=== PATIENT | male | born 1955 | race Caucasian/White ===

== ENCOUNTER 2017-07-05 16:25 | Inpatient (IN) | payer OTHER, MEDICAID ==
[2017-07-05 17:04] LABS: ADD MAN DIFF? NO
[2017-07-05 17:05] LABS: AADO2 Arterial 201.1 mmHg (7.0-24.0); Allen Test ACCEPTAB; Arterial Base Excess 0.5 mmol/L (-3.0-3); Arterial Blood Gas Oxygen Sat 97.9 mmHG (95.0-98.0); Arterial COHb 0.3 % (0.0-3.0); Arterial Fraction of Oxyhgb 97.1 % (93.0-99.0); Arterial MetHb 0.5 % (0.0-1.5); Arterial Total Hemglobin 8.5 g/dl (12.0-18.0); Arterial pCO2 33.8 mmhg (35-45); MODE VENT - AC; Site Right Radial
[2017-07-05 17:07] LABS: WHITE BLOOD COUNT 7.9 10^3/ul (4.8-10.8)
[2017-07-05 17:07] LABS: ABNORMAL IP MESSAGE 1; BASOPHILS % 0.4 % (0.0-2.0); EOSINOPHILS # 0.2 10^3/ul (0.0-0.5); EOSINOPHILS % 2.3 % (0.0-7.0); HEMATOCRIT 27.2 % (42.0-52.0); HEMOGLOBIN 7.8 g/dl (14.0-18.0); LYMPHOCYTES # 1.4 10^3/ul (0.8-2.9); LYMPHOCYTES % 17.8 % (15.0-51.0); MEAN CORPUSCULAR HEMOGLOBIN 24.1 pg (29.0-33.0); MEAN CORPUSCULAR HGB CONC 28.7 g/dl (32.0-37.0); MEAN CORPUSCULAR VOLUME 84.2 fl (82.0-101.0); MEAN PLATELET VOLUME 10.9 fl (7.4-10.4); MONOCYTE # 0.3 10^3/ul (0.3-0.9); MONOCYTES % 4.2 % (0.0-11.0); NEUTROPHIL # 5.9 10^3/ul (1.6-7.5); NEUTROPHILS % 74.5 % (39.0-77.0); PLATELET COUNT 189 10^3/UL (140-415); POSITIVE DIFF @See below; RED BLOOD COUNT 3.23 10^6/ul (4.70-6.10); RED CELL DISTRIBUTION WIDTH 26.5 % (11.5-14.5)
[2017-07-05 17:23] LABS: INR 1.15; PROTIME 14.9 Sec (11.9-14.9); PT RATIO 1.2
[2017-07-05 17:25] LABS: LACTIC ACID 0.8 mmol/L (0.5-2.0)
[2017-07-05 17:26] LABS: ALANINE AMINOTRANSFERASE 50 IU/L (13-69); ALBUMIN 2.9 g/dl (3.3-4.9); ALBUMIN/GLOBULIN RATIO 0.87; ALKALINE PHOSPHATASE 49 IU/L (42-121); ANION GAP 12 (8-16); ASPARTATE AMINO TRANSFERASE 45 IU/L (15-46); BILIRUBIN,INDIRECT 0.3 mg/dl (0-1.1); BILIRUBIN,TOTAL 0.3 mg/dl (0.2-1.3); BLOOD UREA NITROGEN 18 mg/dl (7-20); CALCIUM 8.3 mg/dl (8.4-10.2); CARBON DIOXIDE 27 mmol/L (21-31); CHLORIDE 122 mmol/L (97-110); CREATININE 0.74 mg/dl (0.61-1.24); GLUCOSE 101 mg/dl (70-220); POTASSIUM 3.5 mmol/L (3.5-5.1); SODIUM 157 mmol/L (135-144); TOTAL PROTEIN 6.2 g/dl (6.1-8.1)
[2017-07-05] MEDS: LIDOCAINE 1% (MPF) 5 ML VIAL SC (17:30)
[2017-07-05 17:38] LABS: TROPONIN-I < 0.012 ng/ml (0.00-0.12)
[2017-07-05] MEDS: SOD CHLORIDE 0.9% 100 ML (17:40)
[2017-07-05] MEDS: CEFEPIME 2GM/50 ML (PMX) 50 ML IVPB (18:58)
[2017-07-05] MEDS: ACETAMINOPHEN 650 MG SUPP PR (18:58)
[2017-07-05] MEDS: SODIUM CHLORIDE 0.9% 1L BAG IV* (18:59)
[2017-07-05] MEDS ORDERED: ONDANSETRON 4 MG INJ IV (19:00)
[2017-07-05 19:01] LABS: LACTIC ACID 0.9 mmol/L (0.5-2.0)
[2017-07-05] MEDS: CIPROFLOXACIN 400MG/D5W 200 ML IVPB (19:19)
[2017-07-05 19:42] LABS: ADD UMIC YES; UR ASCORBIC ACID 40 mg/dL (NEGATIVE); UR BILIRUBIN (Dip) NEGATIVE (NEGATIVE); UR BLOOD (Dip) NEGATIVE (NEGATIVE); UR CLARITY SLIGHTLY CLOUDY (CLEAR); UR COLOR YELLOW (YELLOW); UR GLUCOSE (Dip) NEGATIVE (NEGATIVE); UR KETONES (Dip) NEGATIVE (NEGATIVE); UR LEUKOCYTE ESTERASE (Dip) NEGATIVE Leu/ul (NEGATIVE); UR NITRITE (Dip) NEGATIVE (NEGATIVE); UR RBC 5 /HPF (0-5); UR SPECIFIC GRAVITY (Dip) 1.015 (1.003-1.030); UR TOTAL PROTEIN (Dip) 2+ mg/dl (NEGATIVE); UR UROBILINOGEN (Dip) NEGATIVE (NEGATIVE); UR WBC 3 /HPF (0-5)
[2017-07-05 19:56] LABS: ANISOCYTOSIS 3+ (0-0); BASOPHILS % (M) 1 % (0-2); EOSINOPHILS % (M) 2 % (0-7); GIANT THROMBO% (M) 1 % (0-0); LYMPHOCYTES #M 0.9 10^3/ul (0.8-2.9); LYMPHOCYTES % (M) 12 % (15-51); MICROCYTOSIS 3+ (0-0); MONOCYTE #M 0.5 10^3/ul (0.3-0.9); MONOCYTES % (M) 7 % (0-11); POIKILOCYTOSIS 1+ (0-0); REACTIVE LYMPHOCYTES #M 0.5 10^3/ul (0.0-0.0); REACTIVE LYMPHOCYTES% (M) 7 % (0-0); SEGMENTED NEUTROPHILS (M) % 72 % (39-77); SMUDGE%M 9 % (0-0)
[2017-07-05] MEDS: VANCOMYCIN 1 GM (PMX) 250 ML IVPB (20:32)
[2017-07-05 21:51] LABS: LACTIC ACID 0.9 mmol/L (0.5-2.0)
[2017-07-05] MEDS: AMIKACIN 500 MG in DEXTROSE 5% 100 ML IVPB (23:03)
[2017-07-05] MEDS: BISACODYL 10 MG SUPP PR (23:30)
[2017-07-05] MEDS ORDERED: AMIKACIN (5 MG/ML) IV SYG IV* (23:30)
[2017-07-05] MEDS: D5W + KCL 20 MEQ 1,000 ML IV (23:30)
[2017-07-05] MEDS ORDERED: AMIKACIN IV PER PHARMACY XX (23:45)
[2017-07-06] MEDS: AMIKACIN 1,000 MG in DEXTROSE 5% 100 ML IVPB (00:36)
[2017-07-06] MEDS: HYDROCODONE/APAP (5/325) TAB GTB ×3 (00:58→22:43)
[2017-07-06] MEDS: MAGNESIUM HYDROXIDE 30ML CUP GTB (00:58)
[2017-07-06] MEDS: ALBUTEROL/IPRATROPIUM (NEB) 3 ML AMP HHN ×3 (01:10→18:40)
[2017-07-06] MEDS: ACETAMINOPHEN 325 MG TAB PO (04:52)
[2017-07-06 06:33] LABS: ADD MAN DIFF? NO
[2017-07-06 06:44] LABS: ABNORMAL IP MESSAGE 1; BASOPHILS % 0.5 % (0.0-2.0); EOSINOPHILS # 0.2 10^3/ul (0.0-0.5); HEMATOCRIT 23.9 % (42.0-52.0); LYMPHOCYTES # 1.3 10^3/ul (0.8-2.9); LYMPHOCYTES % 18.8 % (15.0-51.0); MEAN CORPUSCULAR HEMOGLOBIN 24.5 pg (29.0-33.0); MEAN CORPUSCULAR HGB CONC 29.3 g/dl (32.0-37.0); MEAN CORPUSCULAR VOLUME 83.6 fl (82.0-101.0); MEAN PLATELET VOLUME 11.7 fl (7.4-10.4); MONOCYTE # 0.3 10^3/ul (0.3-0.9); NEUTROPHIL # 4.8 10^3/ul (1.6-7.5); NEUTROPHILS % 72.1 % (39.0-77.0); PLATELET COUNT 165 10^3/UL (140-415); POSITIVE DIFF @See below; RED BLOOD COUNT 2.86 10^6/ul (4.70-6.10); RED CELL DISTRIBUTION WIDTH 26.5 % (11.5-14.5)
[2017-07-06 06:44] LABS: WHITE BLOOD COUNT 6.6 10^3/ul (4.8-10.8)
[2017-07-06 07:07] LABS: ANION GAP 14 (8-16); BLOOD UREA NITROGEN 15 mg/dl (7-20); CALCIUM 8.2 mg/dl (8.4-10.2); CARBON DIOXIDE 25 mmol/L (21-31); CHLORIDE 121 mmol/L (97-110); CREATININE 0.65 mg/dl (0.61-1.24); GLUCOSE 95 mg/dl (70-220); POTASSIUM 3.3 mmol/L (3.5-5.1); SODIUM 157 mmol/L (135-144)
[2017-07-06 07:09] LABS: CHOL/HDL RATIO 4.5 RATIO; HDL CHOLESTEROL 16 mg/dl (30-78); LDL CHOLESTEROL,CALCULATED 36 mg/dl; TRIGLYCERIDES 101 mg/dl (0-149)
[2017-07-06 07:09] LABS: CHOLESTEROL 72 mg/dl (100-200)
[2017-07-06 07:20] LABS: FREE T4 (FREE THYROXINE) 0.97 ng/dl (0.78-2.44)
[2017-07-06] MEDS: ASPIRIN 81 MG TAB PO (08:36)
[2017-07-06] MEDS: CHLORHEXIDINE GLUCONATE 15 ML UD CUP MM ×2 (08:36→22:35)
[2017-07-06] MEDS: ESCITALOPRAM 10 MG TAB GTB (08:36)
[2017-07-06] MEDS: METOPROLOL 25 MG TAB GTB ×2 (08:37→22:35)
[2017-07-06] MEDS: ENOXAPARIN 30 MG/0.3 ML SYG SC (08:37)
[2017-07-06] MEDS: FAMOTIDINE 20 MG TAB GTB ×2 (08:37→22:34)
[2017-07-06] MEDS: CEFEPIME 1GM/50 ML (PMX) 50 ML IVPB ×2 (08:37→22:33)
[2017-07-06] MEDS: MULTIVITAMINS 30 ML CUP GTB (08:38)
[2017-07-06] MEDS: ONDANSETRON 4 MG TAB GTB ×4 (08:39→22:37)
[2017-07-06] MEDS: FERROUS SULFATE 60 MG/ML 5ML CUP GTB ×2 (09:00→22:34)
[2017-07-06] MEDS ORDERED: ASPIRIN (EC) 81 MG TAB PO (09:00)
[2017-07-06] MEDS: DOCUSATE SODIUM 10 MG/ML (10ML CUP) GTB ×2 (09:00→22:26)
[2017-07-06] MEDS ORDERED: ACETAMINOPHEN 650MG/20.3ML CUP (12:34)
[2017-07-06] MEDS: ACETAMINOPHEN 325 MG TAB GTB (12:38)
[2017-07-06 13:58] LABS: IMMEDIATE SPIN CROSSMATCH 1 1
[2017-07-06] MEDS ORDERED: ALTEPLASE (CATHFLO) 2 MG INJ CATHETER (14:30)
[2017-07-06] MEDS: ALTEPLASE (CATHFLO) 2 MG INJ CATHETER (17:00)
[2017-07-06] MEDS: D5W + KCL 20 MEQ 1,000 ML IV (18:03)
[2017-07-06 20:47] LABS: RETICULOCYTE RBC 3.15
[2017-07-06 20:47] LABS: RETICULOCYTE COUNT # 0.009 X10^6 (0.020-0.110); RETICULOCYTE COUNT % 0.3 % (0.5-1.5)
[2017-07-06 22:15] LABS: FOLATE > 20.0 ng/ml (2.8-20.0)
[2017-07-06] MEDS: SOD CHLORIDE 0.9% 250 ML IV* (22:27)
[2017-07-06] MEDS: SENNA TAB GTB (22:34)
[2017-07-07] MEDS: IPRATROPIUM (HFA) 12.9 GM INHALER INH ×4 (02:00→20:00)
[2017-07-07] MEDS: ALBUTEROL HFA 8 GM INHALER INH ×5 (02:00→20:27)
[2017-07-07] MEDS: D5W + KCL 20 MEQ 1,000 ML IV ×2 (02:10→15:30)
[2017-07-07] MEDS: DAPTOMYCIN 320 MG in SOD CHLORIDE 0.9% 100 ML IVPB ×2 (03:19→22:30)
[2017-07-07] MEDS: BISACODYL 10 MG SUPP PR (03:20)
[2017-07-07] MEDS: MAGNESIUM HYDROXIDE 30ML CUP GTB (03:20)
[2017-07-07] MEDS: PANTOPRAZOLE 40 MG INJ IV (05:53)
[2017-07-07] MEDS: ONDANSETRON 4 MG TAB GTB ×3 (05:53→22:00)
[2017-07-07] MEDS: HYDROCODONE/APAP (5/325) TAB GTB (05:59)
[2017-07-07 08:32] LABS: ADD MAN DIFF? NO
[2017-07-07 08:34] LABS: ABNORMAL IP MESSAGE 1; BASOPHILS % 0.5 % (0.0-2.0); EOSINOPHILS # 0.2 10^3/ul (0.0-0.5); EOSINOPHILS % 2.9 % (0.0-7.0); HEMATOCRIT 25.8 % (42.0-52.0); LYMPHOCYTES % 15.9 % (15.0-51.0); MEAN CORPUSCULAR HEMOGLOBIN 25.2 pg (29.0-33.0); MEAN CORPUSCULAR VOLUME 81.1 fl (82.0-101.0); MONOCYTE # 0.4 10^3/ul (0.3-0.9); NEUTROPHIL # 4.6 10^3/ul (1.6-7.5); NEUTROPHILS % 74.2 % (39.0-77.0); PLATELET COUNT 160 10^3/UL (140-415); POSITIVE DIFF @See below; RED BLOOD COUNT 3.18 10^6/ul (4.70-6.10); RED CELL DISTRIBUTION WIDTH 23.9 % (11.5-14.5)
[2017-07-07 08:34] LABS: WHITE BLOOD COUNT 6.2 10^3/ul (4.8-10.8)
[2017-07-07 09:03] LABS: ANION GAP 12 (8-16); BLOOD UREA NITROGEN 11 mg/dl (7-20); CARBON DIOXIDE 26 mmol/L (21-31); CHLORIDE 112 mmol/L (97-110); CREATININE 0.63 mg/dl (0.61-1.24); GLUCOSE 117 mg/dl (70-220); POTASSIUM 3.5 mmol/L (3.5-5.1); SODIUM 146 mmol/L (135-144)
[2017-07-07 09:16] LABS: AADO2 Arterial 94.6 mmHg (7.0-24.0); Allen Test ACCEPTAB; Arterial Base Excess 1.5 mmol/L (-3.0-3); Arterial Blood Gas Oxygen Sat 96.1 mmHG (95.0-98.0); Arterial COHb 0.5 % (0.0-3.0); Arterial Fraction of Oxyhgb 95.3 % (93.0-99.0); Arterial HCO3 23.9 mmol/L (22.0-26.0); Arterial MetHb 0.3 % (0.0-1.5); Arterial Total Hemglobin 8.9 g/dl (12.0-18.0); Arterial pCO2 29.4 mmhg (35-45); MODE VENT - AC; Site Left Radial
[2017-07-07] MEDS: ACETAMINOPHEN 325 MG TAB GTB (09:32)
[2017-07-07] MEDS: CHLORHEXIDINE GLUCONATE 15 ML UD CUP MM ×2 (09:32→21:53)
[2017-07-07] MEDS: DOCUSATE SODIUM 10 MG/ML (10ML CUP) GTB ×2 (09:33→21:52)
[2017-07-07] MEDS: FAMOTIDINE 20 MG TAB GTB ×2 (09:33→21:53)
[2017-07-07] MEDS: MULTIVITAMINS 30 ML CUP GTB (09:33)
[2017-07-07] MEDS: ESCITALOPRAM 10 MG TAB GTB (09:33)
[2017-07-07] MEDS: METOPROLOL 25 MG TAB GTB ×2 (09:34→21:00)
[2017-07-07] MEDS: FERROUS SULFATE 60 MG/ML 5ML CUP GTB ×2 (09:38→21:53)
[2017-07-07] MEDS: CEFEPIME 1GM/50 ML (PMX) 50 ML IVPB ×2 (09:38→21:52)
[2017-07-07 12:01] LABS: OCCULT BLOOD STOOL NEGATIVE (NEGATIVE)
[2017-07-07] MEDS: POTASSIUM CHLORIDE 100 ML IVPB (14:21)
[2017-07-07] MEDS: AMIKACIN 500 MG in DEXTROSE 5% 100 ML IVPB (17:15)
[2017-07-07] MEDS: SENNA TAB GTB (21:53)
[2017-07-08] MEDS: BISACODYL 10 MG SUPP PR ×2 (00:07→23:30)
[2017-07-08] MEDS: MAGNESIUM HYDROXIDE 30ML CUP GTB ×2 (00:07→23:30)
[2017-07-08] MEDS: IPRATROPIUM (HFA) 12.9 GM INHALER INH ×2 (02:00→19:29)
[2017-07-08] MEDS: ALBUTEROL HFA 8 GM INHALER INH ×4 (02:12→19:27)
[2017-07-08] MEDS: ONDANSETRON 4 MG TAB GTB ×3 (05:24→21:21)
[2017-07-08] MEDS: D5W + KCL 20 MEQ 1,000 ML IV ×2 (05:24→16:07)
[2017-07-08] MEDS: AMIKACIN 500 MG in DEXTROSE 5% 100 ML IVPB ×2 (05:24→16:08)
[2017-07-08] MEDS: PANTOPRAZOLE 40 MG INJ IV (05:24)
[2017-07-08 08:36] LABS: ADD MAN DIFF? NO
[2017-07-08 08:41] LABS: ABNORMAL IP MESSAGE 1; BASOPHILS % 0.3 % (0.0-2.0); EOSINOPHILS # 0.2 10^3/ul (0.0-0.5); EOSINOPHILS % 3.4 % (0.0-7.0); HEMATOCRIT 27.6 % (42.0-52.0); HEMOGLOBIN 8.4 g/dl (14.0-18.0); LYMPHOCYTES # 0.6 10^3/ul (0.8-2.9); LYMPHOCYTES % 9.7 % (15.0-51.0); MEAN CORPUSCULAR HEMOGLOBIN 25.3 pg (29.0-33.0); MEAN CORPUSCULAR HGB CONC 30.4 g/dl (32.0-37.0); MEAN CORPUSCULAR VOLUME 83.1 fl (82.0-101.0); MEAN PLATELET VOLUME 11.4 fl (7.4-10.4); MONOCYTE # 0.3 10^3/ul (0.3-0.9); MONOCYTES % 5.6 % (0.0-11.0); NEUTROPHIL # 4.9 10^3/ul (1.6-7.5); NEUTROPHILS % 80.5 % (39.0-77.0); PLATELET COUNT 184 10^3/UL (140-415); POSITIVE DIFF @See below; RED BLOOD COUNT 3.32 10^6/ul (4.70-6.10)
[2017-07-08 08:41] LABS: WHITE BLOOD COUNT 6.1 10^3/ul (4.8-10.8)
[2017-07-08] MEDS: ESCITALOPRAM 10 MG TAB GTB (08:45)
[2017-07-08] MEDS: MULTIVITAMINS 30 ML CUP GTB (08:45)
[2017-07-08] MEDS: FAMOTIDINE 20 MG TAB GTB ×2 (08:45→21:21)
[2017-07-08] MEDS: CHLORHEXIDINE GLUCONATE 15 ML UD CUP MM ×2 (08:45→21:21)
[2017-07-08] MEDS: FERROUS SULFATE 60 MG/ML 5ML CUP GTB ×2 (08:45→21:21)
[2017-07-08] MEDS: HYDROCODONE/APAP (5/325) TAB GTB (08:46)
[2017-07-08] MEDS: CEFEPIME 1GM/50 ML (PMX) 50 ML IVPB (08:47)
[2017-07-08] MEDS: METOPROLOL 25 MG TAB GTB ×3 (08:47→21:22)
[2017-07-08] MEDS: DOCUSATE SODIUM 10 MG/ML (10ML CUP) GTB ×2 (08:47→21:20)
[2017-07-08 09:06] LABS: ANION GAP 12 (8-16); BLOOD UREA NITROGEN 11 mg/dl (7-20); CALCIUM 8.6 mg/dl (8.4-10.2); CARBON DIOXIDE 27 mmol/L (21-31); CHLORIDE 116 mmol/L (97-110); CREATININE 0.57 mg/dl (0.61-1.24); GLUCOSE 112 mg/dl (70-220); POTASSIUM 3.9 mmol/L (3.5-5.1); SODIUM 151 mmol/L (135-144)
[2017-07-08 09:12] LABS: CREATINE KINASE 107 IU/L (23-200)
[2017-07-08] MEDS: SENNA TAB GTB (21:21)
[2017-07-09] MEDS: CEFEPIME 1GM/50 ML (PMX) 50 ML IVPB ×3 (00:06→21:48)
[2017-07-09] MEDS: DAPTOMYCIN 320 MG in SOD CHLORIDE 0.9% 100 ML IVPB ×2 (00:12→22:02)
[2017-07-09] MEDS: ALBUTEROL/IPRATROPIUM (NEB) 3 ML AMP HHN ×4 (01:18→19:31)
[2017-07-09] MEDS: *AMIKACIN TROUGH & PEAK XX (03:30)
[2017-07-09 04:27] LABS: ADD MAN DIFF? NO
[2017-07-09 04:30] LABS: WHITE BLOOD COUNT 5.7 10^3/ul (4.8-10.8)
[2017-07-09 04:30] LABS: ABNORMAL IP MESSAGE 1; BASOPHILS % 0.3 % (0.0-2.0); EOSINOPHILS # 0.2 10^3/ul (0.0-0.5); EOSINOPHILS % 4.2 % (0.0-7.0); HEMOGLOBIN 7.7 g/dl (14.0-18.0); LYMPHOCYTES % 17.1 % (15.0-51.0); MEAN CORPUSCULAR HEMOGLOBIN 25.6 pg (29.0-33.0); MEAN CORPUSCULAR HGB CONC 30.8 g/dl (32.0-37.0); MEAN CORPUSCULAR VOLUME 83.1 fl (82.0-101.0); MEAN PLATELET VOLUME 11.7 fl (7.4-10.4); MONOCYTE # 0.4 10^3/ul (0.3-0.9); NEUTROPHIL # 4.1 10^3/ul (1.6-7.5); NEUTROPHILS % 70.9 % (39.0-77.0); PLATELET COUNT 186 10^3/UL (140-415); POSITIVE DIFF @See below; RED BLOOD COUNT 3.01 10^6/ul (4.70-6.10); RED CELL DISTRIBUTION WIDTH 24.2 % (11.5-14.5)
[2017-07-09 04:56] LABS: ANION GAP 11 (8-16); BLOOD UREA NITROGEN 8 mg/dl (7-20); CALCIUM 8.2 mg/dl (8.4-10.2); CARBON DIOXIDE 28 mmol/L (21-31); CHLORIDE 113 mmol/L (97-110); CREATININE 0.58 mg/dl (0.61-1.24); GLUCOSE 120 mg/dl (70-220); POTASSIUM 3.8 mmol/L (3.5-5.1); SODIUM 148 mmol/L (135-144)
[2017-07-09] MEDS: AMIKACIN 500 MG in DEXTROSE 5% 100 ML IVPB (06:13)
[2017-07-09] MEDS: PANTOPRAZOLE 40 MG INJ IV (06:19)
[2017-07-09] MEDS: ONDANSETRON 4 MG TAB GTB ×3 (06:20→21:48)
[2017-07-09] MEDS: METOPROLOL 25 MG TAB GTB ×2 (09:00→21:50)
[2017-07-09] MEDS: ESCITALOPRAM 10 MG TAB GTB (09:03)
[2017-07-09] MEDS: DOCUSATE SODIUM 10 MG/ML (10ML CUP) GTB ×2 (09:03→21:48)
[2017-07-09] MEDS: MULTIVITAMINS 30 ML CUP GTB (09:03)
[2017-07-09] MEDS: FERROUS SULFATE 60 MG/ML 5ML CUP GTB ×2 (09:04→21:48)
[2017-07-09] MEDS: CHLORHEXIDINE GLUCONATE 15 ML UD CUP MM ×2 (09:04→21:50)
[2017-07-09] MEDS: D5W + KCL 20 MEQ 1,000 ML IV (09:05)
[2017-07-09] MEDS: FAMOTIDINE 20 MG TAB GTB ×2 (09:06→21:48)
[2017-07-09 12:46] LABS: AMIKACIN TROUGH 8.8 mg/L (4.0-8.0)
[2017-07-09] MEDS: AMIKACIN 400 MG in DEXTROSE 5% 100 ML IVPB (17:57)
[2017-07-09] MEDS: SENNA TAB GTB (21:49)
[2017-07-09] MEDS: BISACODYL 10 MG SUPP PR (23:30)
[2017-07-09] MEDS: MAGNESIUM HYDROXIDE 30ML CUP GTB (23:30)
[2017-07-10] MEDS: ALBUTEROL/IPRATROPIUM (NEB) 3 ML AMP HHN ×4 (01:01→21:01)
[2017-07-10] MEDS: AMIKACIN 400 MG in DEXTROSE 5% 100 ML IVPB ×2 (06:22→17:50)
[2017-07-10] MEDS: PANTOPRAZOLE 40 MG INJ IV (06:23)
[2017-07-10] MEDS: ONDANSETRON 4 MG TAB GTB ×3 (06:23→20:37)
[2017-07-10 06:49] LABS: ADD MAN DIFF? NO
[2017-07-10 06:53] LABS: ABNORMAL IP MESSAGE 1; BASOPHILS % 0.6 % (0.0-2.0); EOSINOPHILS # 0.3 10^3/ul (0.0-0.5); EOSINOPHILS % 3.9 % (0.0-7.0); HEMATOCRIT 26.5 % (42.0-52.0); HEMOGLOBIN 8.1 g/dl (14.0-18.0); LYMPHOCYTES # 1.1 10^3/ul (0.8-2.9); LYMPHOCYTES % 15.5 % (15.0-51.0); MEAN CORPUSCULAR HEMOGLOBIN 25.3 pg (29.0-33.0); MEAN CORPUSCULAR HGB CONC 30.6 g/dl (32.0-37.0); MEAN CORPUSCULAR VOLUME 82.8 fl (82.0-101.0); MEAN PLATELET VOLUME 10.4 fl (7.4-10.4); MONOCYTE # 0.4 10^3/ul (0.3-0.9); MONOCYTES % 6.2 % (0.0-11.0); NEUTROPHIL # 5.1 10^3/ul (1.6-7.5); NEUTROPHILS % 73.4 % (39.0-77.0); PLATELET COUNT 235 10^3/UL (140-415); POSITIVE DIFF @See below; RED CELL DISTRIBUTION WIDTH 24.3 % (11.5-14.5)
[2017-07-10 07:38] LABS: ANION GAP 13 (8-16); BLOOD UREA NITROGEN 8 mg/dl (7-20); CALCIUM 8.5 mg/dl (8.4-10.2); CARBON DIOXIDE 30 mmol/L (21-31); CHLORIDE 109 mmol/L (97-110); CREATININE 0.59 mg/dl (0.61-1.24); GLUCOSE 98 mg/dl (70-220); SODIUM 148 mmol/L (135-144)
[2017-07-10 08:34] LABS: HIV 1&2 ANTIBODY NEGATIVE (NEGATIVE)
[2017-07-10] MEDS: CHLORHEXIDINE GLUCONATE 15 ML UD CUP MM ×2 (08:57→20:37)
[2017-07-10] MEDS: ESCITALOPRAM 10 MG TAB GTB (08:58)
[2017-07-10] MEDS: DOCUSATE SODIUM 10 MG/ML (10ML CUP) GTB ×2 (08:58→20:38)
[2017-07-10] MEDS: FERROUS SULFATE 60 MG/ML 5ML CUP GTB ×2 (08:58→20:37)
[2017-07-10] MEDS: METOPROLOL 25 MG TAB GTB ×2 (08:58→20:39)
[2017-07-10] MEDS: FAMOTIDINE 20 MG TAB GTB ×2 (08:58→20:38)
[2017-07-10] MEDS: MULTIVITAMINS 30 ML CUP GTB (08:58)
[2017-07-10] MEDS: CEFEPIME 1GM/50 ML (PMX) 50 ML IVPB ×2 (08:59→20:38)
[2017-07-10] MEDS: SENNA TAB GTB (20:37)
[2017-07-10] MEDS: MAGNESIUM HYDROXIDE 30ML CUP GTB (20:40)
[2017-07-10] MEDS: BISACODYL 10 MG SUPP PR (20:41)
[2017-07-10] MEDS: DAPTOMYCIN 320 MG in SOD CHLORIDE 0.9% 100 ML IVPB (22:46)
[2017-07-11] MEDS: ALBUTEROL/IPRATROPIUM (NEB) 3 ML AMP HHN ×3 (01:31→19:34)
[2017-07-11] MEDS: ONDANSETRON 4 MG TAB GTB ×3 (05:20→21:14)
[2017-07-11] MEDS: PANTOPRAZOLE 40 MG INJ IV (05:20)
[2017-07-11] MEDS: AMIKACIN 400 MG in DEXTROSE 5% 100 ML IVPB ×2 (06:16→18:04)
[2017-07-11 06:38] LABS: ADD MAN DIFF? NO
[2017-07-11 06:42] LABS: WHITE BLOOD COUNT 6.8 10^3/ul (4.8-10.8)
[2017-07-11 06:42] LABS: ABNORMAL IP MESSAGE 1; BASOPHILS % 0.3 % (0.0-2.0); EOSINOPHILS # 0.2 10^3/ul (0.0-0.5); EOSINOPHILS % 3.2 % (0.0-7.0); HEMATOCRIT 26.3 % (42.0-52.0); HEMOGLOBIN 8.2 g/dl (14.0-18.0); LYMPHOCYTES # 1.2 10^3/ul (0.8-2.9); LYMPHOCYTES % 17.4 % (15.0-51.0); MEAN CORPUSCULAR HEMOGLOBIN 25.5 pg (29.0-33.0); MEAN CORPUSCULAR HGB CONC 31.2 g/dl (32.0-37.0); MEAN CORPUSCULAR VOLUME 81.7 fl (82.0-101.0); MEAN PLATELET VOLUME 10.4 fl (7.4-10.4); MONOCYTE # 0.5 10^3/ul (0.3-0.9); MONOCYTES % 6.8 % (0.0-11.0); NEUTROPHIL # 4.9 10^3/ul (1.6-7.5); NEUTROPHILS % 71.9 % (39.0-77.0); PLATELET COUNT 261 10^3/UL (140-415); POSITIVE DIFF @See below; RED BLOOD COUNT 3.22 10^6/ul (4.70-6.10); RED CELL DISTRIBUTION WIDTH 24.1 % (11.5-14.5)
[2017-07-11 07:12] LABS: ANION GAP 13 (8-16); BLOOD UREA NITROGEN 11 mg/dl (7-20); CALCIUM 8.9 mg/dl (8.4-10.2); CARBON DIOXIDE 33 mmol/L (21-31); CHLORIDE 103 mmol/L (97-110); CREATININE 0.64 mg/dl (0.61-1.24); GLUCOSE 117 mg/dl (70-220); SODIUM 145 mmol/L (135-144)
[2017-07-11] MEDS: CEFEPIME 1GM/50 ML (PMX) 50 ML IVPB ×2 (08:41→21:15)
[2017-07-11] MEDS: CHLORHEXIDINE GLUCONATE 15 ML UD CUP MM ×2 (08:42→21:14)
[2017-07-11] MEDS: FAMOTIDINE 20 MG TAB GTB ×2 (08:45→21:15)
[2017-07-11] MEDS: FERROUS SULFATE 60 MG/ML 5ML CUP GTB ×2 (08:45→21:13)
[2017-07-11] MEDS: ESCITALOPRAM 10 MG TAB GTB (08:45)
[2017-07-11] MEDS: MULTIVITAMINS 30 ML CUP GTB (08:45)
[2017-07-11] MEDS: METOPROLOL 25 MG TAB GTB ×2 (08:45→21:15)
[2017-07-11] MEDS: DOCUSATE SODIUM 10 MG/ML (10ML CUP) GTB ×2 (08:46→21:14)
[2017-07-11] MEDS: ACETAMINOPHEN 325 MG TAB GTB (21:14)
[2017-07-11] MEDS: SENNA TAB GTB (21:15)
[2017-07-11] MEDS: MAGNESIUM HYDROXIDE 30ML CUP GTB (21:15)
[2017-07-11] MEDS: DAPTOMYCIN 320 MG in SOD CHLORIDE 0.9% 100 ML IVPB (21:15)
[2017-07-11] MEDS: BISACODYL 10 MG SUPP PR (21:16)
[2017-07-12] MEDS: ALBUTEROL/IPRATROPIUM (NEB) 3 ML AMP HHN ×4 (01:23→19:55)
[2017-07-12] MEDS: ONDANSETRON 4 MG TAB GTB ×3 (05:37→21:41)
[2017-07-12] MEDS: PANTOPRAZOLE 40 MG INJ IV (05:37)
[2017-07-12] MEDS: AMIKACIN 400 MG in DEXTROSE 5% 100 ML IVPB ×2 (05:38→18:34)
[2017-07-12 08:11] LABS: ADD MAN DIFF? NO
[2017-07-12 08:24] LABS: WHITE BLOOD COUNT 6.4 10^3/ul (4.8-10.8)
[2017-07-12 08:24] LABS: ABNORMAL IP MESSAGE 1; BASOPHIL # 0.1 10^3/ul (0.0-0.1); BASOPHILS % 0.8 % (0.0-2.0); EOSINOPHILS # 0.2 10^3/ul (0.0-0.5); HEMATOCRIT 27.5 % (42.0-52.0); HEMOGLOBIN 8.5 g/dl (14.0-18.0); LYMPHOCYTES # 1.2 10^3/ul (0.8-2.9); LYMPHOCYTES % 18.7 % (15.0-51.0); MEAN CORPUSCULAR HEMOGLOBIN 25.1 pg (29.0-33.0); MEAN CORPUSCULAR HGB CONC 30.9 g/dl (32.0-37.0); MEAN CORPUSCULAR VOLUME 81.4 fl (82.0-101.0); MEAN PLATELET VOLUME 10.3 fl (7.4-10.4); MONOCYTE # 0.5 10^3/ul (0.3-0.9); MONOCYTES % 7.8 % (0.0-11.0); NEUTROPHIL # 4.4 10^3/ul (1.6-7.5); NEUTROPHILS % 69.4 % (39.0-77.0); PLATELET COUNT 289 10^3/UL (140-415); POSITIVE DIFF @See below; RED BLOOD COUNT 3.38 10^6/ul (4.70-6.10); RED CELL DISTRIBUTION WIDTH 24.2 % (11.5-14.5)
[2017-07-12 08:46] LABS: ANION GAP 14 (8-16); BLOOD UREA NITROGEN 13 mg/dl (7-20); CALCIUM 8.7 mg/dl (8.4-10.2); CARBON DIOXIDE 32 mmol/L (21-31); CHLORIDE 103 mmol/L (97-110); CREATININE 0.69 mg/dl (0.61-1.24); GLUCOSE 115 mg/dl (70-220); POTASSIUM 4.2 mmol/L (3.5-5.1); SODIUM 145 mmol/L (135-144)
[2017-07-12] MEDS: CEFEPIME 1GM/50 ML (PMX) 50 ML IVPB ×2 (09:46→21:41)
[2017-07-12] MEDS: DOCUSATE SODIUM 10 MG/ML (10ML CUP) GTB ×2 (09:47→21:40)
[2017-07-12] MEDS: FERROUS SULFATE 60 MG/ML 5ML CUP GTB ×2 (09:47→21:40)
[2017-07-12] MEDS: CHLORHEXIDINE GLUCONATE 15 ML UD CUP MM ×2 (09:47→21:41)
[2017-07-12] MEDS: MULTIVITAMINS 30 ML CUP GTB (09:48)
[2017-07-12] MEDS: FAMOTIDINE 20 MG TAB GTB ×2 (09:51→21:40)
[2017-07-12] MEDS: METOPROLOL 25 MG TAB GTB ×2 (09:51→21:43)
[2017-07-12] MEDS: ESCITALOPRAM 10 MG TAB GTB (09:52)
[2017-07-12] MEDS: ACETAMINOPHEN 325 MG TAB GTB (13:37)
[2017-07-12] MEDS: SENNA TAB GTB (21:40)
[2017-07-12] MEDS: DAPTOMYCIN 320 MG in SOD CHLORIDE 0.9% 100 ML IVPB (22:36)
[2017-07-13] MEDS: MAGNESIUM HYDROXIDE 30ML CUP GTB (00:13)
[2017-07-13] MEDS: BISACODYL 10 MG SUPP PR (00:13)
[2017-07-13] MEDS: ALBUTEROL/IPRATROPIUM (NEB) 3 ML AMP HHN ×3 (01:38→13:44)
[2017-07-13] MEDS: ONDANSETRON 4 MG TAB GTB ×2 (05:35→15:20)
[2017-07-13] MEDS: PANTOPRAZOLE 40 MG INJ IV (05:35)
[2017-07-13] MEDS: AMIKACIN 400 MG in DEXTROSE 5% 100 ML IVPB ×2 (05:54→18:37)
[2017-07-13 08:18] LABS: ADD MAN DIFF? NO
[2017-07-13 08:21] LABS: ABNORMAL IP MESSAGE 1; BASOPHILS % 0.6 % (0.0-2.0); EOSINOPHILS # 0.2 10^3/ul (0.0-0.5); EOSINOPHILS % 3.1 % (0.0-7.0); HEMATOCRIT 26.4 % (42.0-52.0); HEMOGLOBIN 8.3 g/dl (14.0-18.0); LYMPHOCYTES # 1.3 10^3/ul (0.8-2.9); MEAN CORPUSCULAR HEMOGLOBIN 25.5 pg (29.0-33.0); MEAN CORPUSCULAR HGB CONC 31.4 g/dl (32.0-37.0); MEAN PLATELET VOLUME 9.7 fl (7.4-10.4); MONOCYTE # 0.6 10^3/ul (0.3-0.9); MONOCYTES % 8.7 % (0.0-11.0); NEUTROPHIL # 4.8 10^3/ul (1.6-7.5); NEUTROPHILS % 68.3 % (39.0-77.0); PLATELET COUNT 317 10^3/UL (140-415); POSITIVE DIFF @See below; RED BLOOD COUNT 3.26 10^6/ul (4.70-6.10); RED CELL DISTRIBUTION WIDTH 24.3 % (11.5-14.5)
[2017-07-13 08:44] LABS: ANION GAP 17 (8-16); BLOOD UREA NITROGEN 15 mg/dl (7-20); CALCIUM 8.6 mg/dl (8.4-10.2); CARBON DIOXIDE 31 mmol/L (21-31); CHLORIDE 102 mmol/L (97-110); CREATININE 0.83 mg/dl (0.61-1.24); GLUCOSE 86 mg/dl (70-220); POTASSIUM 4.6 mmol/L (3.5-5.1); SODIUM 145 mmol/L (135-144)
[2017-07-13] MEDS: FERROUS SULFATE 60 MG/ML 5ML CUP GTB (08:59)
[2017-07-13] MEDS: MULTIVITAMINS 30 ML CUP GTB (08:59)
[2017-07-13] MEDS: CEFEPIME 1GM/50 ML (PMX) 50 ML IVPB (09:00)
[2017-07-13] MEDS: METOPROLOL 25 MG TAB GTB (09:00)
[2017-07-13] MEDS: CHLORHEXIDINE GLUCONATE 15 ML UD CUP MM (09:00)
[2017-07-13] MEDS: DOCUSATE SODIUM 10 MG/ML (10ML CUP) GTB (09:00)
[2017-07-13] MEDS: FAMOTIDINE 20 MG TAB GTB (09:00)
[2017-07-13] MEDS: ESCITALOPRAM 10 MG TAB GTB (09:00)
[2017-07-13] MEDS: ACETAMINOPHEN 325 MG TAB GTB (09:01)
[2017-07-13] MEDS: LIDOCAINE 1% (MDV) 20 ML INJ (11:25)
[2017-07-13] MEDS: IOHEXOL 300MG/ML 30 ML BTL (11:25)
[2017-07-13 14:03] LABS: PROCALCITONIN <0.10 ng/mL (<0.10)
== END 2017-07-13 20:50 | disposition short-term general hospital (02) | DRG 871 ==
LOC: TEL 18:40 → E/R 16:25
PROC: 02HV33Z Insertion of Infusion Device into Superior Vena Cava, Percutaneous Approach (ICD-10-PCS; principal; 2017-07-05)
PROC: 5A1945Z Respiratory Ventilation, 24-96 Consecutive Hours (ICD-10-PCS; 2017-07-05)
PROC: 30233N1 Transfusion of Nonautologous Red Blood Cells into Peripheral Vein, Percutaneous Approach (ICD-10-PCS; 2017-07-06)
DX: A41.9 Sepsis, unspecified organism (principal); G82.50 Quadriplegia, unspecified; J18.9 Pneumonia, unspecified organism; J96.10 Chronic respiratory failure, unspecified whether with hypoxia or hypercapnia; J43.9 Emphysema, unspecified; J84.10 Pulmonary fibrosis, unspecified; E87.0 Hyperosmolality and hypernatremia; K56.7 Ileus, unspecified; N13.2 Hydronephrosis with renal and ureteral calculous obstruction; S73.002A Unspecified subluxation of left hip, initial encounter; L03.311 Cellulitis of abdominal wall; N39.0 Urinary tract infection, site not specified; Z93.0 Tracheostomy status; Z99.81 Dependence on supplemental oxygen; R13.10 Dysphagia, unspecified; Z93.1 Gastrostomy status; I10 Essential (primary) hypertension; I25.10 Atherosclerotic heart disease of native coronary artery without angina pectoris; D64.9 Anemia, unspecified; H54.61 Unqualified visual loss, right eye, normal vision left eye; I71.4 Abdominal aortic aneurysm, without rupture; K80.20 Calculus of gallbladder without cholecystitis without obstruction; I25.2 Old myocardial infarction; M25.452 Effusion, left hip; E87.6 Hypokalemia
CPT/HCPCS: 36415; 36430; 36569; 36600; 71045; 71250; 72050; 72125; 73500; 74150; 76937; 77012; 80048; 80053; 80061; 80150; 81001; 82270; 82550; 82607; 82728; 82746; 82803; 82962; 83605; 84145; 84439; 84443; 84484; 85025; 85045; 85610; 85730; 86644; 86703; 86850; 86900; 86901; 86920; 87040; 87045; 87070; 87081; 87086; 87400; 93005; 94002; 94003; 94640; 94664; 96365; 96366; 96367; 96368; 96372; 96375; 96376; 99285-25

== ENCOUNTER 2017-08-26 20:13 | Inpatient (IN) | payer OTHER, MEDICAID ==
[2017-08-26 21:06] LABS: AADO2 Arterial 111.8 mmHg (7.0-24.0); Allen Test ACCEPTAB; Arterial Base Excess -0.5 mmol/L (-3.0-3); Arterial Blood Gas Oxygen Sat 98.6 mmHG (95.0-98.0); Arterial COHb 0.1 % (0.0-3.0); Arterial Fraction of Oxyhgb 98.1 % (93.0-99.0); Arterial HCO3 23.6 mmol/L (22.0-26.0); Arterial MetHb 0.4 % (0.0-1.5); Arterial Total Hemglobin 11.4 g/dl (12.0-18.0); Arterial pCO2 36.5 mmhg (35-45); MODE VENT - AC; Site Right Radial
[2017-08-26 21:13] LABS: WHITE BLOOD COUNT 11.1 10^3/ul (4.8-10.8)
[2017-08-26 21:13] LABS: ABNORMAL IP MESSAGE 1; HEMATOCRIT 38.9 % (42.0-52.0); HEMOGLOBIN 12.2 g/dl (14.0-18.0); MEAN CORPUSCULAR HEMOGLOBIN 28.9 pg (29.0-33.0); MEAN CORPUSCULAR HGB CONC 31.4 g/dl (32.0-37.0); MEAN CORPUSCULAR VOLUME 92.2 fl (82.0-101.0); MEAN PLATELET VOLUME 10.5 fl (7.4-10.4); PLATELET COUNT 349 10^3/UL (140-415); POSITIVE DIFF @See below; RED BLOOD COUNT 4.22 10^6/ul (4.70-6.10); RED CELL DISTRIBUTION WIDTH 18.8 % (11.5-14.5)
[2017-08-26 21:16] LABS: ADD MAN DIFF? YES
[2017-08-26] MEDS: CEFEPIME 2GM/50 ML (PMX) 50 ML IVPB (21:35)
[2017-08-26 21:36] LABS: INR 1.19; PROTIME 15.3 Sec (11.9-14.9); PT RATIO 1.2
[2017-08-26 21:37] LABS: PARTIAL THROMBOPLASTIN TIME 34.4 Sec (25.0-35.0)
[2017-08-26 21:45] LABS: LACTIC ACID 1.6 mmol/L (0.5-2.0)
[2017-08-26 21:46] LABS: ALANINE AMINOTRANSFERASE 52 IU/L (13-69); ALBUMIN 4.4 g/dl (3.3-4.9); ALBUMIN/GLOBULIN RATIO 0.83; ALKALINE PHOSPHATASE 129 IU/L (42-121); ANION GAP 19 (8-16); ASPARTATE AMINO TRANSFERASE 41 IU/L (15-46); BILIRUBIN,INDIRECT 0.4 mg/dl (0-1.1); BILIRUBIN,TOTAL 0.4 mg/dl (0.2-1.3); BLOOD UREA NITROGEN 53 mg/dl (7-20); CALCIUM 9.9 mg/dl (8.4-10.2); CARBON DIOXIDE 27 mmol/L (21-31); CHLORIDE 104 mmol/L (97-110); CREATININE 1.54 mg/dl (0.61-1.24); GLUCOSE 138 mg/dl (70-220); POTASSIUM 4.4 mmol/L (3.5-5.1); SODIUM 146 mmol/L (135-144); TOTAL PROTEIN 9.7 g/dl (6.1-8.1)
[2017-08-26 21:57] LABS: TROPONIN-I 0.023 ng/ml (0.00-0.12)
[2017-08-26 22:12] LABS: ADD UMIC YES; UR ASCORBIC ACID 40 mg/dL (NEGATIVE); UR BACTERIA FEW /HPF (NONE SEEN); UR BILIRUBIN (Dip) NEGATIVE (NEGATIVE); UR BLOOD (Dip) NEGATIVE (NEGATIVE); UR CLARITY CLOUDY (CLEAR); UR COLOR YELLOW (YELLOW); UR GLUCOSE (Dip) 1+ mg/dL (NEGATIVE); UR KETONES (Dip) NEGATIVE (NEGATIVE); UR LEUKOCYTE ESTERASE (Dip) NEGATIVE Leu/ul (NEGATIVE); UR NITRITE (Dip) NEGATIVE (NEGATIVE); UR RBC 6 /HPF (0-5); UR SQUAMOUS EPITHELIAL CELL FEW /HPF (FEW); UR TOTAL PROTEIN (Dip) 2+ mg/dl (NEGATIVE); UR TRANSITIONAL EPI CELL FEW /HPF (NONE SEEN); UR UROBILINOGEN (Dip) NEGATIVE (NEGATIVE); UR WBC 18 /HPF (0-5)
[2017-08-26 22:20] LABS: BAND NEUTROPHILS #M 0.2 10^3/ul (0.0-0.6); BAND NEUTROPHILS % (M) 2 % (0-4); BASOPHIL #M 0.1 10^3/ul (0.0-0.0); BASOPHILS % (M) 1 % (0-2); GIANT THROMBO% (M) 2 % (0-0); LYMPHOCYTES #M 1.1 10^3/ul (0.8-2.9); LYMPHOCYTES % (M) 10 % (15-51); MICROCYTOSIS 1+ (0-0); MONOCYTE #M 1.9 10^3/ul (0.3-0.9); MONOCYTES % (M) 18 % (0-11); PLATELET ESTIMATE NORMAL; SEG NEUT #M 7.7 10^3/ul (1.6-7.5); SEGMENTED NEUTROPHILS (M) % 69 % (39-77); SMUDGE%M 2 % (0-0)
[2017-08-26] MEDS: SOD CHLORIDE 0.9% 1,000 ML IV (23:48)
[2017-08-27] MEDS ORDERED: NACL 0.9% 3 ML SYG IV
[2017-08-27] MEDS: SOD CHLORIDE 0.9% 1,000 ML IV ×4 (00:09→19:32)
[2017-08-27] MEDS: SOD CHLORIDE 0.9% 500 ML IV (00:12)
[2017-08-27 00:13] LABS: LACTIC ACID 1.4 mmol/L (0.5-2.0)
[2017-08-27 03:27] LABS: LACTIC ACID 0.8 mmol/L (0.5-2.0)
[2017-08-27] MEDS: ACETAMINOPHEN 325 MG TAB PO (05:28)
[2017-08-27 06:03] LABS: ADD MAN DIFF? NO
[2017-08-27 06:11] LABS: WHITE BLOOD COUNT 8.9 10^3/ul (4.8-10.8)
[2017-08-27 06:12] LABS: BASOPHIL # 0.1 10^3/ul (0.0-0.1); BASOPHILS % 0.9 % (0.0-2.0); HEMATOCRIT 31.4 % (42.0-52.0); HEMOGLOBIN 9.7 g/dl (14.0-18.0); LYMPHOCYTES # 1.2 10^3/ul (0.8-2.9); LYMPHOCYTES % 12.9 % (15.0-51.0); MEAN CORPUSCULAR HEMOGLOBIN 28.6 pg (29.0-33.0); MEAN CORPUSCULAR HGB CONC 30.9 g/dl (32.0-37.0); MEAN CORPUSCULAR VOLUME 92.6 fl (82.0-101.0); MEAN PLATELET VOLUME 10.1 fl (7.4-10.4); MONOCYTE # 1.1 10^3/ul (0.3-0.9); MONOCYTES % 11.8 % (0.0-11.0); NEUTROPHIL # 6.6 10^3/ul (1.6-7.5); NEUTROPHILS % 74.1 % (39.0-77.0); PLATELET COUNT 240 10^3/UL (140-415); RED BLOOD COUNT 3.39 10^6/ul (4.70-6.10); RED CELL DISTRIBUTION WIDTH 18.5 % (11.5-14.5)
[2017-08-27 06:38] LABS: ALANINE AMINOTRANSFERASE 41 IU/L (13-69); ALBUMIN 3.1 g/dl (3.3-4.9); ALBUMIN/GLOBULIN RATIO 0.75; ALKALINE PHOSPHATASE 92 IU/L (42-121); ANION GAP 15 (8-16); ASPARTATE AMINO TRANSFERASE 26 IU/L (15-46); BILIRUBIN,INDIRECT 0.5 mg/dl (0-1.1); BILIRUBIN,TOTAL 0.5 mg/dl (0.2-1.3); BLOOD UREA NITROGEN 44 mg/dl (7-20); CALCIUM 8.8 mg/dl (8.4-10.2); CARBON DIOXIDE 22 mmol/L (21-31); CHLORIDE 115 mmol/L (97-110); CREATININE 1.09 mg/dl (0.61-1.24); GLUCOSE 119 mg/dl (70-220); POTASSIUM 3.9 mmol/L (3.5-5.1); SODIUM 148 mmol/L (135-144); TOTAL PROTEIN 7.2 g/dl (6.1-8.1)
[2017-08-27] MEDS: FAMOTIDINE 20 MG INJ IV ×2 (08:46→23:59)
[2017-08-27] MEDS: CEFEPIME 2GM/50 ML (PMX) 50 ML IVPB (08:46)
[2017-08-27] MEDS: ENOXAPARIN 30 MG/0.3 ML SYG SC (08:46)
[2017-08-28] MEDS: morphine 2 MG INJ IV ×2 (00:09→11:31)
[2017-08-28] MEDS: SOD CHLORIDE 0.9% 1,000 ML IV ×2 (05:45→15:54)
[2017-08-28] MEDS: CEFEPIME 2GM/50 ML (PMX) 50 ML IVPB ×3 (09:00→20:22)
[2017-08-28] MEDS: FAMOTIDINE 20 MG INJ IV ×2 (11:31→20:23)
[2017-08-28] MEDS: ENOXAPARIN 30 MG/0.3 ML SYG SC (11:41)
[2017-08-28] MEDS: DEXTROSE 5% 1,000 ML IV (17:11)
[2017-08-28] MEDS: ACETAMINOPHEN 325 MG TAB PO (17:39)
[2017-08-29] MEDS: ACETAMINOPHEN 325 MG TAB PO (07:05)
[2017-08-29 07:47] LABS: ADD MAN DIFF? NO
[2017-08-29 07:56] LABS: WHITE BLOOD COUNT 8.9 10^3/ul (4.8-10.8)
[2017-08-29 07:56] LABS: BASOPHIL # 0.1 10^3/ul (0.0-0.1); BASOPHILS % 0.8 % (0.0-2.0); EOSINOPHILS % 0.1 % (0.0-7.0); HEMATOCRIT 31.1 % (42.0-52.0); HEMOGLOBIN 9.6 g/dl (14.0-18.0); LYMPHOCYTES # 1.3 10^3/ul (0.8-2.9); LYMPHOCYTES % 14.8 % (15.0-51.0); MEAN CORPUSCULAR HEMOGLOBIN 29.1 pg (29.0-33.0); MEAN CORPUSCULAR HGB CONC 30.9 g/dl (32.0-37.0); MEAN CORPUSCULAR VOLUME 94.2 fl (82.0-101.0); MEAN PLATELET VOLUME 10.9 fl (7.4-10.4); MONOCYTE # 1.1 10^3/ul (0.3-0.9); MONOCYTES % 12.2 % (0.0-11.0); NEUTROPHIL # 6.4 10^3/ul (1.6-7.5); NEUTROPHILS % 71.8 % (39.0-77.0); PLATELET COUNT 187 10^3/UL (140-415); RED CELL DISTRIBUTION WIDTH 17.2 % (11.5-14.5)
[2017-08-29 08:29] LABS: ANION GAP 13 (8-16); BLOOD UREA NITROGEN 30 mg/dl (7-20); CALCIUM 8.8 mg/dl (8.4-10.2); CARBON DIOXIDE 23 mmol/L (21-31); CHLORIDE 116 mmol/L (97-110); CREATININE 0.99 mg/dl (0.61-1.24); GLUCOSE 122 mg/dl (70-220); POTASSIUM 3.4 mmol/L (3.5-5.1); SODIUM 149 mmol/L (135-144)
[2017-08-29] MEDS: ENOXAPARIN 30 MG/0.3 ML SYG SC (09:09)
[2017-08-29] MEDS: CEFEPIME 2GM/50 ML (PMX) 50 ML IVPB ×2 (09:10→20:43)
[2017-08-29] MEDS: FAMOTIDINE 20 MG INJ IV ×2 (09:25→20:43)
[2017-08-29] MEDS: DEXTROSE 5% 1,000 ML IV (12:30)
[2017-08-29] MEDS: SOD CHLORIDE 0.9% 1,000 ML IV (19:30)
[2017-08-30] MEDS: SOD CHLORIDE 0.9% 1,000 ML IV ×4 (03:45→21:15)
[2017-08-30 08:20] LABS: ADD MAN DIFF? NO
[2017-08-30 08:23] LABS: BASOPHIL # 0.1 10^3/ul (0.0-0.1); BASOPHILS % 0.7 % (0.0-2.0); EOSINOPHILS # 0.3 10^3/ul (0.0-0.5); EOSINOPHILS % 2.5 % (0.0-7.0); HEMATOCRIT 32.6 % (42.0-52.0); HEMOGLOBIN 10.3 g/dl (14.0-18.0); LYMPHOCYTES # 1.1 10^3/ul (0.8-2.9); LYMPHOCYTES % 11.2 % (15.0-51.0); MEAN CORPUSCULAR HEMOGLOBIN 29.5 pg (29.0-33.0); MEAN CORPUSCULAR HGB CONC 31.6 g/dl (32.0-37.0); MEAN CORPUSCULAR VOLUME 93.4 fl (82.0-101.0); MEAN PLATELET VOLUME 11.3 fl (7.4-10.4); MONOCYTE # 0.9 10^3/ul (0.3-0.9); MONOCYTES % 9.3 % (0.0-11.0); NEUTROPHIL # 7.7 10^3/ul (1.6-7.5); NEUTROPHILS % 75.9 % (39.0-77.0); PLATELET COUNT 172 10^3/UL (140-415); RED BLOOD COUNT 3.49 10^6/ul (4.70-6.10); RED CELL DISTRIBUTION WIDTH 17.1 % (11.5-14.5)
[2017-08-30 08:23] LABS: WHITE BLOOD COUNT 10.1 10^3/ul (4.8-10.8)
[2017-08-30 08:41] LABS: ANION GAP 15 (8-16); BLOOD UREA NITROGEN 21 mg/dl (7-20); CALCIUM 8.9 mg/dl (8.4-10.2); CARBON DIOXIDE 22 mmol/L (21-31); CHLORIDE 109 mmol/L (97-110); CREATININE 0.62 mg/dl (0.61-1.24); GLUCOSE 110 mg/dl (70-220); POTASSIUM 3.2 mmol/L (3.5-5.1); SODIUM 143 mmol/L (135-144)
[2017-08-30] MEDS: CEFEPIME 2GM/50 ML (PMX) 50 ML IVPB ×2 (08:55→21:11)
[2017-08-30] MEDS: ENOXAPARIN 30 MG/0.3 ML SYG SC (08:58)
[2017-08-30] MEDS: FAMOTIDINE 20 MG INJ IV ×2 (09:00→21:11)
[2017-08-30] MEDS: ONDANSETRON 4 MG INJ IV (11:18)
[2017-08-30] MEDS: POTASSIUM CHLORIDE 20 MEQ POWDER FOR ORAL SOLN GTB (15:48)
[2017-08-31] MEDS: SOD CHLORIDE 0.9% 1,000 ML IV (06:16)
[2017-08-31 08:11] LABS: ADD MAN DIFF? NO
[2017-08-31 08:15] LABS: BASOPHILS % 0.3 % (0.0-2.0); EOSINOPHILS # 0.4 10^3/ul (0.0-0.5); EOSINOPHILS % 4.2 % (0.0-7.0); HEMATOCRIT 29.7 % (42.0-52.0); HEMOGLOBIN 9.2 g/dl (14.0-18.0); LYMPHOCYTES # 0.7 10^3/ul (0.8-2.9); LYMPHOCYTES % 8.5 % (15.0-51.0); MEAN CORPUSCULAR HEMOGLOBIN 29.6 pg (29.0-33.0); MEAN CORPUSCULAR VOLUME 95.5 fl (82.0-101.0); MEAN PLATELET VOLUME 11.4 fl (7.4-10.4); MONOCYTE # 0.6 10^3/ul (0.3-0.9); MONOCYTES % 7.2 % (0.0-11.0); NEUTROPHIL # 6.8 10^3/ul (1.6-7.5); NEUTROPHILS % 78.9 % (39.0-77.0); PLATELET COUNT 174 10^3/UL (140-415); RED BLOOD COUNT 3.11 10^6/ul (4.70-6.10); RED CELL DISTRIBUTION WIDTH 17.1 % (11.5-14.5)
[2017-08-31 08:15] LABS: WHITE BLOOD COUNT 8.6 10^3/ul (4.8-10.8)
[2017-08-31] MEDS: FAMOTIDINE 20 MG INJ IV ×2 (08:20→21:32)
[2017-08-31] MEDS: CEFEPIME 2GM/50 ML (PMX) 50 ML IVPB ×2 (08:21→21:33)
[2017-08-31] MEDS: ENOXAPARIN 30 MG/0.3 ML SYG SC (08:24)
[2017-08-31 08:41] LABS: ANION GAP 12 (8-16); BLOOD UREA NITROGEN 17 mg/dl (7-20); CALCIUM 8.7 mg/dl (8.4-10.2); CARBON DIOXIDE 25 mmol/L (21-31); CHLORIDE 115 mmol/L (97-110); CREATININE 0.62 mg/dl (0.61-1.24); GLUCOSE 111 mg/dl (70-220); SODIUM 148 mmol/L (135-144)
[2017-09-01] MEDS: FAMOTIDINE 20 MG INJ IV ×2 (08:08→21:47)
[2017-09-01] MEDS: ENOXAPARIN 30 MG/0.3 ML SYG SC (08:09)
[2017-09-01] MEDS: CEFEPIME 2GM/50 ML (PMX) 50 ML IVPB ×2 (08:14→21:47)
[2017-09-01 09:24] LABS: ADD MAN DIFF? NO
[2017-09-01 09:27] LABS: WHITE BLOOD COUNT 14.8 10^3/ul (4.8-10.8)
[2017-09-01 09:27] LABS: ABNORMAL IP MESSAGE 1; BASOPHIL # 0.1 10^3/ul (0.0-0.1); BASOPHILS % 0.3 % (0.0-2.0); EOSINOPHILS % 0.1 % (0.0-7.0); HEMATOCRIT 37.4 % (42.0-52.0); HEMOGLOBIN 11.4 g/dl (14.0-18.0); LYMPHOCYTES # 0.5 10^3/ul (0.8-2.9); LYMPHOCYTES % 3.7 % (15.0-51.0); MEAN CORPUSCULAR HEMOGLOBIN 29.4 pg (29.0-33.0); MEAN CORPUSCULAR HGB CONC 30.5 g/dl (32.0-37.0); MEAN CORPUSCULAR VOLUME 96.4 fl (82.0-101.0); MEAN PLATELET VOLUME 11.7 fl (7.4-10.4); MONOCYTE # 0.6 10^3/ul (0.3-0.9); MONOCYTES % 4.2 % (0.0-11.0); NEUTROPHIL # 13.5 10^3/ul (1.6-7.5); NEUTROPHILS % 91.1 % (39.0-77.0); PLATELET COUNT 301 10^3/UL (140-415); POSITIVE DIFF @See below; RED BLOOD COUNT 3.88 10^6/ul (4.70-6.10); RED CELL DISTRIBUTION WIDTH 17.2 % (11.5-14.5)
[2017-09-01 09:48] LABS: ANION GAP 16 (8-16); BLOOD UREA NITROGEN 26 mg/dl (7-20); CALCIUM 9.3 mg/dl (8.4-10.2); CARBON DIOXIDE 23 mmol/L (21-31); CHLORIDE 113 mmol/L (97-110); CREATININE 0.76 mg/dl (0.61-1.24); GLUCOSE 158 mg/dl (70-220); POTASSIUM 3.4 mmol/L (3.5-5.1); SODIUM 149 mmol/L (135-144)
[2017-09-01] MEDS: ONDANSETRON 4 MG INJ IV (10:47)
[2017-09-01] MEDS ORDERED: VANCOMYCIN IV PER PHARMACY XX (11:00)
[2017-09-01] MEDS: VANCOMYCIN 1.5 GM in SOD CHLORIDE 0.9% 250 ML IVPB (11:27)
[2017-09-01] MEDS: POTASSIUM CHLORIDE 20 MEQ POWDER FOR ORAL SOLN GTB (11:27)
[2017-09-01] MEDS ORDERED: LEVALBUTEROL (NEB) 0.63 MG/3 ML AMP HHN ×2 (11:30→14:00)
[2017-09-01] MEDS ORDERED: LEVALBUTEROL (HFA) 15 GM INHALER INH ×3 (12:30)
[2017-09-01 12:34] LABS: Allen Test ACCEPTAB; Arterial Base Excess -4.6 mmol/L (-3.0-3); Arterial Blood Gas Oxygen Sat 95.8 mmHG (95.0-98.0); Arterial COHb 0.3 % (0.0-3.0); Arterial Fraction of Oxyhgb 95.2 % (93.0-99.0); Arterial HCO3 22.5 mmol/L (22.0-26.0); Arterial MetHb 0.3 % (0.0-1.5); Arterial Total Hemglobin 11.7 g/dl (12.0-18.0); Arterial pCO2 49.9 mmhg (35-45); MODE VENT - AC; Site Right Radial
[2017-09-01] MEDS: LEVALBUTEROL (HFA) 15 GM INHALER INH ×2 (14:01→20:45)
[2017-09-02] MEDS: LEVALBUTEROL (HFA) 15 GM INHALER INH ×4 (01:24→20:20)
[2017-09-02] MEDS: ACETAMINOPHEN 325 MG TAB PO (04:20)
[2017-09-02] MEDS: FAMOTIDINE 20 MG INJ IV ×2 (08:15→20:59)
[2017-09-02] MEDS: CEFEPIME 2GM/50 ML (PMX) 50 ML IVPB (08:15)
[2017-09-02] MEDS: ENOXAPARIN 30 MG/0.3 ML SYG SC (08:16)
[2017-09-02 08:40] LABS: ADD MAN DIFF? NO
[2017-09-02 08:45] LABS: WHITE BLOOD COUNT 10.8 10^3/ul (4.8-10.8)
[2017-09-02 08:45] LABS: BASOPHILS % 0.4 % (0.0-2.0); EOSINOPHILS # 0.1 10^3/ul (0.0-0.5); EOSINOPHILS % 0.5 % (0.0-7.0); HEMATOCRIT 29.3 % (42.0-52.0); HEMOGLOBIN 8.9 g/dl (14.0-18.0); LYMPHOCYTES # 0.6 10^3/ul (0.8-2.9); LYMPHOCYTES % 5.9 % (15.0-51.0); MEAN CORPUSCULAR HEMOGLOBIN 29.5 pg (29.0-33.0); MEAN CORPUSCULAR HGB CONC 30.4 g/dl (32.0-37.0); MEAN PLATELET VOLUME 11.8 fl (7.4-10.4); MONOCYTE # 0.6 10^3/ul (0.3-0.9); MONOCYTES % 5.8 % (0.0-11.0); NEUTROPHIL # 9.4 10^3/ul (1.6-7.5); NEUTROPHILS % 86.8 % (39.0-77.0); PLATELET COUNT 203 10^3/UL (140-415); RED BLOOD COUNT 3.02 10^6/ul (4.70-6.10); RED CELL DISTRIBUTION WIDTH 16.9 % (11.5-14.5)
[2017-09-02 09:00] LABS: ANION GAP 8 (8-16); BLOOD UREA NITROGEN 30 mg/dl (7-20); CALCIUM 8.9 mg/dl (8.4-10.2); CARBON DIOXIDE 27 mmol/L (21-31); CHLORIDE 117 mmol/L (97-110); CREATININE 0.73 mg/dl (0.61-1.24); GLUCOSE 144 mg/dl (70-220); POTASSIUM 4.2 mmol/L (3.5-5.1); SODIUM 148 mmol/L (135-144)
[2017-09-02 09:47] LABS: Allen Test ACCEPTAB; Arterial Base Excess -0.8 mmol/L (-3.0-3); Arterial Blood Gas Oxygen Sat 97.8 mmHG (95.0-98.0); Arterial COHb 0.3 % (0.0-3.0); Arterial Fraction of Oxyhgb 97.1 % (93.0-99.0); Arterial HCO3 23.3 mmol/L (22.0-26.0); Arterial MetHb 0.4 % (0.0-1.5); Arterial Total Hemglobin 9.6 g/dl (12.0-18.0); Arterial pCO2 36.2 mmhg (35-45); MODE VENT - AC; Site Right Radial
[2017-09-02] MEDS: D5W + KCL 20 MEQ 1,000 ML IV (12:35)
[2017-09-02] MEDS: VANCOMYCIN 750 MG in DEXTROSE 5% 150 ML IVPB ×2 (12:44)
[2017-09-02] MEDS: MEROPENEM 1 GM/50ML(PMX) 50 ML IVPB (21:52)
[2017-09-02 23:50] LABS: VANCOMYCIN,TROUGH 16.5 ug/ml (10.0-20.0)
[2017-09-03] MEDS: VANCOMYCIN 750 MG in DEXTROSE 5% 150 ML IVPB ×2 (00:08→13:26)
[2017-09-03] MEDS: LEVALBUTEROL (HFA) 15 GM INHALER INH ×4 (01:54→19:13)
[2017-09-03] MEDS: MEROPENEM 1 GM/50ML(PMX) 50 ML IVPB ×3 (05:31→22:07)
[2017-09-03 08:42] LABS: ADD MAN DIFF? NO
[2017-09-03 08:47] LABS: BASOPHILS % 0.4 % (0.0-2.0); EOSINOPHILS # 0.3 10^3/ul (0.0-0.5); EOSINOPHILS % 2.8 % (0.0-7.0); HEMOGLOBIN 8.3 g/dl (14.0-18.0); LYMPHOCYTES # 0.8 10^3/ul (0.8-2.9); LYMPHOCYTES % 8.2 % (15.0-51.0); MEAN CORPUSCULAR HEMOGLOBIN 29.7 pg (29.0-33.0); MEAN CORPUSCULAR HGB CONC 30.7 g/dl (32.0-37.0); MEAN CORPUSCULAR VOLUME 96.8 fl (82.0-101.0); MEAN PLATELET VOLUME 11.7 fl (7.4-10.4); MONOCYTE # 0.9 10^3/ul (0.3-0.9); MONOCYTES % 8.9 % (0.0-11.0); NEUTROPHIL # 7.6 10^3/ul (1.6-7.5); NEUTROPHILS % 79.3 % (39.0-77.0); PLATELET COUNT 198 10^3/UL (140-415); RED BLOOD COUNT 2.79 10^6/ul (4.70-6.10); RED CELL DISTRIBUTION WIDTH 16.8 % (11.5-14.5)
[2017-09-03 08:47] LABS: WHITE BLOOD COUNT 9.6 10^3/ul (4.8-10.8)
[2017-09-03 09:15] LABS: ANION GAP 13 (8-16); BLOOD UREA NITROGEN 23 mg/dl (7-20); CALCIUM 8.3 mg/dl (8.4-10.2); CARBON DIOXIDE 28 mmol/L (21-31); CHLORIDE 105 mmol/L (97-110); CREATININE 0.59 mg/dl (0.61-1.24); GLUCOSE 147 mg/dl (70-220); POTASSIUM 3.9 mmol/L (3.5-5.1); SODIUM 142 mmol/L (135-144)
[2017-09-03] MEDS: FAMOTIDINE 20 MG INJ IV ×2 (09:25→21:20)
[2017-09-03] MEDS: ENOXAPARIN 30 MG/0.3 ML SYG SC (09:27)
[2017-09-03] MEDS: D5W + KCL 20 MEQ 1,000 ML IV (13:28)
[2017-09-03] MEDS: COLISTIMETHATE (25 MG/ML INHAL SYG) NEB (19:14)
[2017-09-03] MEDS: VANCOMYCIN 500MG/NS (PMX) 100 ML IVPB (23:43)
[2017-09-04] MEDS: LEVALBUTEROL (HFA) 15 GM INHALER INH ×4 (01:26→20:56)
[2017-09-04] MEDS: D5W + KCL 20 MEQ 1,000 ML IV (04:30)
[2017-09-04] MEDS: MEROPENEM 1 GM/50ML(PMX) 50 ML IVPB ×3 (05:53→22:35)
[2017-09-04] MEDS: FAMOTIDINE 20 MG INJ IV ×2 (08:38→20:21)
[2017-09-04] MEDS: ENOXAPARIN 30 MG/0.3 ML SYG SC (08:42)
[2017-09-04] MEDS: VANCOMYCIN 500MG/NS (PMX) 100 ML IVPB (14:07)
[2017-09-04] MEDS: COLISTIMETHATE (25 MG/ML INHAL SYG) NEB ×2 (14:39→22:11)
[2017-09-05] MEDS: VANCOMYCIN 500MG/NS (PMX) 100 ML IVPB ×2 (00:04→14:10)
[2017-09-05] MEDS: LEVALBUTEROL (HFA) 15 GM INHALER INH ×4 (01:12→19:27)
[2017-09-05] MEDS: MEROPENEM 1 GM/50ML(PMX) 50 ML IVPB ×3 (05:58→21:02)
[2017-09-05] MEDS: COLISTIMETHATE (25 MG/ML INHAL SYG) NEB ×2 (07:52→19:27)
[2017-09-05 09:36] LABS: ADD MAN DIFF? NO
[2017-09-05 09:38] LABS: WHITE BLOOD COUNT 5.3 10^3/ul (4.8-10.8)
[2017-09-05 09:38] LABS: BASOPHILS % 0.7 % (0.0-2.0); EOSINOPHILS # 0.4 10^3/ul (0.0-0.5); EOSINOPHILS % 6.9 % (0.0-7.0); HEMATOCRIT 29.4 % (42.0-52.0); HEMOGLOBIN 9.1 g/dl (14.0-18.0); LYMPHOCYTES # 0.8 10^3/ul (0.8-2.9); LYMPHOCYTES % 15.5 % (15.0-51.0); MEAN CORPUSCULAR HEMOGLOBIN 29.3 pg (29.0-33.0); MEAN CORPUSCULAR VOLUME 94.5 fl (82.0-101.0); MONOCYTE # 0.8 10^3/ul (0.3-0.9); MONOCYTES % 15.4 % (0.0-11.0); NEUTROPHIL # 3.3 10^3/ul (1.6-7.5); NEUTROPHILS % 61.1 % (39.0-77.0); PLATELET COUNT 253 10^3/UL (140-415); RED BLOOD COUNT 3.11 10^6/ul (4.70-6.10); RED CELL DISTRIBUTION WIDTH 16.3 % (11.5-14.5)
[2017-09-05] MEDS: FAMOTIDINE 20 MG INJ IV ×2 (10:09→21:04)
[2017-09-05] MEDS: ENOXAPARIN 30 MG/0.3 ML SYG SC (10:12)
[2017-09-05 10:19] LABS: CREATININE 0.56 mg/dl (0.61-1.24)
[2017-09-05 10:19] LABS: BLOOD UREA NITROGEN 18 mg/dl (7-20)
[2017-09-05 11:03] LABS: ANION GAP 14 (8-16); BLOOD UREA NITROGEN 18 mg/dl (7-20); CARBON DIOXIDE 28 mmol/L (21-31); CHLORIDE 103 mmol/L (97-110); CREATININE 0.62 mg/dl (0.61-1.24); GLUCOSE 125 mg/dl (70-220); POTASSIUM 4.2 mmol/L (3.5-5.1); SODIUM 141 mmol/L (135-144)
[2017-09-05] MEDS: SOD CHLORIDE 0.9% 500 ML IV (21:00)
[2017-09-05] MEDS: ACETAMINOPHEN 325 MG TAB PO (21:04)
[2017-09-06 00:25] LABS: VANCOMYCIN,TROUGH 15.6 ug/ml (10.0-20.0)
[2017-09-06] MEDS: VANCOMYCIN 500MG/NS (PMX) 100 ML IVPB ×2 (00:57→12:56)
[2017-09-06] MEDS: LEVALBUTEROL (HFA) 15 GM INHALER INH ×4 (01:26→20:06)
[2017-09-06] MEDS: MEROPENEM 1 GM/50ML(PMX) 50 ML IVPB ×3 (05:30→21:35)
[2017-09-06] MEDS: ACETAMINOPHEN 325 MG TAB PO (05:51)
[2017-09-06] MEDS: COLISTIMETHATE (25 MG/ML INHAL SYG) NEB ×2 (07:44→20:06)
[2017-09-06 08:59] LABS: ADD MAN DIFF? NO
[2017-09-06 09:01] LABS: WHITE BLOOD COUNT 8.3 10^3/ul (4.8-10.8)
[2017-09-06 09:01] LABS: BASOPHIL # 0.1 10^3/ul (0.0-0.1); BASOPHILS % 0.6 % (0.0-2.0); EOSINOPHILS # 0.3 10^3/ul (0.0-0.5); EOSINOPHILS % 4.1 % (0.0-7.0); HEMATOCRIT 25.8 % (42.0-52.0); HEMOGLOBIN 8.1 g/dl (14.0-18.0); LYMPHOCYTES # 1.5 10^3/ul (0.8-2.9); LYMPHOCYTES % 17.9 % (15.0-51.0); MEAN CORPUSCULAR HEMOGLOBIN 29.8 pg (29.0-33.0); MEAN CORPUSCULAR HGB CONC 31.4 g/dl (32.0-37.0); MEAN CORPUSCULAR VOLUME 94.9 fl (82.0-101.0); MEAN PLATELET VOLUME 12.3 fl (7.4-10.4); MONOCYTE # 1.1 10^3/ul (0.3-0.9); MONOCYTES % 12.8 % (0.0-11.0); NEUTROPHIL # 5.3 10^3/ul (1.6-7.5); NEUTROPHILS % 63.8 % (39.0-77.0); POSITIVE DIFF @See below; RED BLOOD COUNT 2.72 10^6/ul (4.70-6.10); RED CELL DISTRIBUTION WIDTH 16.4 % (11.5-14.5)
[2017-09-06 09:03] LABS: PLATELET COUNT 198 10^3/UL (140-415)
[2017-09-06] MEDS: FAMOTIDINE 20 MG INJ IV ×2 (09:29→21:31)
[2017-09-06] MEDS: ENOXAPARIN 30 MG/0.3 ML SYG SC (09:31)
[2017-09-06] MEDS: morphine 2 MG INJ IV ×3 (09:34→17:49)
[2017-09-06 09:50] LABS: ANION GAP 14 (8-16); BLOOD UREA NITROGEN 21 mg/dl (7-20); CALCIUM 8.9 mg/dl (8.4-10.2); CARBON DIOXIDE 27 mmol/L (21-31); CHLORIDE 102 mmol/L (97-110); CREATININE 0.64 mg/dl (0.61-1.24); GLUCOSE 101 mg/dl (70-220); POTASSIUM 4.9 mmol/L (3.5-5.1); SODIUM 138 mmol/L (135-144)
[2017-09-07] MEDS: VANCOMYCIN 500MG/NS (PMX) 100 ML IVPB ×2 (00:39→14:57)
[2017-09-07] MEDS: LEVALBUTEROL (HFA) 15 GM INHALER INH ×4 (01:46→19:40)
[2017-09-07] MEDS: MEROPENEM 1 GM/50ML(PMX) 50 ML IVPB ×3 (06:05→20:42)
[2017-09-07] MEDS: FAMOTIDINE 20 MG INJ IV ×2 (08:44→20:42)
[2017-09-07] MEDS: ENOXAPARIN 30 MG/0.3 ML SYG SC (08:46)
[2017-09-07 09:33] LABS: ADD MAN DIFF? NO
[2017-09-07 09:38] LABS: WHITE BLOOD COUNT 7.7 10^3/ul (4.8-10.8)
[2017-09-07 09:38] LABS: BASOPHIL # 0.1 10^3/ul (0.0-0.1); BASOPHILS % 0.6 % (0.0-2.0); EOSINOPHILS # 0.4 10^3/ul (0.0-0.5); EOSINOPHILS % 4.7 % (0.0-7.0); HEMATOCRIT 30.5 % (42.0-52.0); HEMOGLOBIN 9.8 g/dl (14.0-18.0); LYMPHOCYTES # 1.2 10^3/ul (0.8-2.9); MEAN CORPUSCULAR HEMOGLOBIN 29.4 pg (29.0-33.0); MEAN CORPUSCULAR HGB CONC 32.1 g/dl (32.0-37.0); MEAN CORPUSCULAR VOLUME 91.6 fl (82.0-101.0); MEAN PLATELET VOLUME 10.7 fl (7.4-10.4); MONOCYTE # 0.8 10^3/ul (0.3-0.9); MONOCYTES % 9.9 % (0.0-11.0); NEUTROPHIL # 5.3 10^3/ul (1.6-7.5); NEUTROPHILS % 68.9 % (39.0-77.0); PLATELET COUNT 285 10^3/UL (140-415); RED BLOOD COUNT 3.33 10^6/ul (4.70-6.10); RED CELL DISTRIBUTION WIDTH 15.7 % (11.5-14.5)
[2017-09-07 10:17] LABS: ANION GAP 13 (8-16); BLOOD UREA NITROGEN 24 mg/dl (7-20); CALCIUM 9.2 mg/dl (8.4-10.2); CARBON DIOXIDE 27 mmol/L (21-31); CHLORIDE 102 mmol/L (97-110); CREATININE 0.84 mg/dl (0.61-1.24); GLUCOSE 118 mg/dl (70-220); POTASSIUM 4.4 mmol/L (3.5-5.1); SODIUM 138 mmol/L (135-144)
[2017-09-07] MEDS: COLISTIMETHATE (25 MG/ML INHAL SYG) NEB ×2 (11:05→19:41)
[2017-09-08] MEDS: VANCOMYCIN 500MG/NS (PMX) 100 ML IVPB ×2 (00:16→13:49)
[2017-09-08] MEDS: LEVALBUTEROL (HFA) 15 GM INHALER INH ×4 (02:35→19:37)
[2017-09-08] MEDS: MEROPENEM 1 GM/50ML(PMX) 50 ML IVPB ×3 (06:02→21:09)
[2017-09-08] MEDS: FAMOTIDINE 20 MG INJ IV ×2 (09:26→21:09)
[2017-09-08] MEDS: ENOXAPARIN 30 MG/0.3 ML SYG SC (09:30)
[2017-09-08] MEDS: COLISTIMETHATE (25 MG/ML INHAL SYG) NEB ×2 (09:42→19:37)
[2017-09-08 23:48] LABS: VANCOMYCIN,TROUGH 16.4 ug/ml (10.0-20.0)
[2017-09-09] MEDS: VANCOMYCIN 500MG/NS (PMX) 100 ML IVPB ×2 (00:11→13:06)
[2017-09-09] MEDS: LEVALBUTEROL (HFA) 15 GM INHALER INH ×4 (01:20→19:41)
[2017-09-09] MEDS: MEROPENEM 1 GM/50ML(PMX) 50 ML IVPB ×3 (06:03→22:47)
[2017-09-09 06:48] LABS: ADD MAN DIFF? NO
[2017-09-09 06:53] LABS: WHITE BLOOD COUNT 8.2 10^3/ul (4.8-10.8)
[2017-09-09 06:53] LABS: BASOPHIL # 0.1 10^3/ul (0.0-0.1); EOSINOPHILS # 0.3 10^3/ul (0.0-0.5); EOSINOPHILS % 3.2 % (0.0-7.0); HEMATOCRIT 32.3 % (42.0-52.0); HEMOGLOBIN 10.4 g/dl (14.0-18.0); LYMPHOCYTES # 1.4 10^3/ul (0.8-2.9); LYMPHOCYTES % 16.5 % (15.0-51.0); MEAN CORPUSCULAR HEMOGLOBIN 29.5 pg (29.0-33.0); MEAN CORPUSCULAR HGB CONC 32.2 g/dl (32.0-37.0); MEAN CORPUSCULAR VOLUME 91.8 fl (82.0-101.0); MEAN PLATELET VOLUME 10.7 fl (7.4-10.4); MONOCYTE # 0.8 10^3/ul (0.3-0.9); MONOCYTES % 9.9 % (0.0-11.0); NEUTROPHIL # 5.7 10^3/ul (1.6-7.5); NEUTROPHILS % 68.9 % (39.0-77.0); PLATELET COUNT 349 10^3/UL (140-415); RED BLOOD COUNT 3.52 10^6/ul (4.70-6.10); RED CELL DISTRIBUTION WIDTH 15.6 % (11.5-14.5)
[2017-09-09 07:08] LABS: ANION GAP 19 (8-16); BLOOD UREA NITROGEN 28 mg/dl (7-20); CALCIUM 9.4 mg/dl (8.4-10.2); CARBON DIOXIDE 23 mmol/L (21-31); CHLORIDE 105 mmol/L (97-110); CREATININE 0.93 mg/dl (0.61-1.24); GLUCOSE 124 mg/dl (70-220); SODIUM 143 mmol/L (135-144)
[2017-09-09] MEDS: COLISTIMETHATE (25 MG/ML INHAL SYG) NEB ×2 (08:07→19:42)
[2017-09-09] MEDS ORDERED: SOD CHLORIDE 0.9% 100 ML (09:29)
[2017-09-09] MEDS ORDERED: IODIXANOL LOCM 100 ML BTL (09:29)
[2017-09-09] MEDS: FAMOTIDINE 20 MG INJ IV ×2 (09:33→21:20)
[2017-09-09] MEDS: ENOXAPARIN 30 MG/0.3 ML SYG SC (09:39)
[2017-09-10] MEDS: VANCOMYCIN 500MG/NS (PMX) 100 ML IVPB ×2 (00:29→11:54)
[2017-09-10] MEDS: LEVALBUTEROL (HFA) 15 GM INHALER INH ×4 (01:22→19:58)
[2017-09-10] MEDS: MEROPENEM 1 GM/50ML(PMX) 50 ML IVPB ×3 (07:05→22:05)
[2017-09-10] MEDS: COLISTIMETHATE (25 MG/ML INHAL SYG) NEB ×2 (08:09→19:58)
[2017-09-10] MEDS: FAMOTIDINE 20 MG INJ IV ×2 (09:44→22:06)
[2017-09-10] MEDS: ENOXAPARIN 30 MG/0.3 ML SYG SC (09:46)
[2017-09-11] MEDS: VANCOMYCIN 500MG/NS (PMX) 100 ML IVPB ×2 (00:25→13:51)
[2017-09-11] MEDS: LEVALBUTEROL (HFA) 15 GM INHALER INH ×4 (01:47→20:44)
[2017-09-11] MEDS: MEROPENEM 1 GM/50ML(PMX) 50 ML IVPB ×3 (05:34→21:25)
[2017-09-11 06:59] LABS: ADD MAN DIFF? NO
[2017-09-11 07:02] LABS: WHITE BLOOD COUNT 8.2 10^3/ul (4.8-10.8)
[2017-09-11 07:02] LABS: BASOPHIL # 0.1 10^3/ul (0.0-0.1); BASOPHILS % 1.1 % (0.0-2.0); EOSINOPHILS # 0.3 10^3/ul (0.0-0.5); EOSINOPHILS % 3.8 % (0.0-7.0); HEMATOCRIT 31.2 % (42.0-52.0); LYMPHOCYTES # 1.2 10^3/ul (0.8-2.9); LYMPHOCYTES % 14.3 % (15.0-51.0); MEAN CORPUSCULAR HEMOGLOBIN 29.5 pg (29.0-33.0); MEAN CORPUSCULAR HGB CONC 32.1 g/dl (32.0-37.0); MEAN PLATELET VOLUME 10.3 fl (7.4-10.4); MONOCYTE # 0.5 10^3/ul (0.3-0.9); MONOCYTES % 6.5 % (0.0-11.0); NEUTROPHILS % 73.8 % (39.0-77.0); PLATELET COUNT 333 10^3/UL (140-415); RED BLOOD COUNT 3.39 10^6/ul (4.70-6.10); RED CELL DISTRIBUTION WIDTH 15.2 % (11.5-14.5)
[2017-09-11 07:24] LABS: ANION GAP 16 (8-16); BLOOD UREA NITROGEN 28 mg/dl (7-20); CARBON DIOXIDE 23 mmol/L (21-31); CHLORIDE 107 mmol/L (97-110); CREATININE 0.75 mg/dl (0.61-1.24); GLUCOSE 126 mg/dl (70-220); POTASSIUM 4.2 mmol/L (3.5-5.1); SODIUM 142 mmol/L (135-144)
[2017-09-11] MEDS: FAMOTIDINE 20 MG INJ IV ×2 (08:43→21:25)
[2017-09-11] MEDS: ENOXAPARIN 30 MG/0.3 ML SYG SC (08:48)
[2017-09-11] MEDS: COLISTIMETHATE (25 MG/ML INHAL SYG) NEB ×2 (09:27→23:45)
[2017-09-12 00:06] LABS: VANCOMYCIN,TROUGH 18.8 ug/ml (10.0-20.0)
[2017-09-12] MEDS: VANCOMYCIN 500MG/NS (PMX) 100 ML IVPB ×2 (00:21→13:14)
[2017-09-12] MEDS: LEVALBUTEROL (HFA) 15 GM INHALER INH ×4 (01:49→19:56)
[2017-09-12] MEDS: MEROPENEM 1 GM/50ML(PMX) 50 ML IVPB (06:06)
[2017-09-12 09:31] LABS: ADD MAN DIFF? NO
[2017-09-12 09:33] LABS: BASOPHIL # 0.1 10^3/ul (0.0-0.1); BASOPHILS % 0.9 % (0.0-2.0); EOSINOPHILS # 0.3 10^3/ul (0.0-0.5); EOSINOPHILS % 3.3 % (0.0-7.0); HEMATOCRIT 31.3 % (42.0-52.0); HEMOGLOBIN 10.1 g/dl (14.0-18.0); LYMPHOCYTES # 1.2 10^3/ul (0.8-2.9); LYMPHOCYTES % 11.9 % (15.0-51.0); MEAN CORPUSCULAR HEMOGLOBIN 29.9 pg (29.0-33.0); MEAN CORPUSCULAR HGB CONC 32.3 g/dl (32.0-37.0); MEAN CORPUSCULAR VOLUME 92.6 fl (82.0-101.0); MEAN PLATELET VOLUME 10.8 fl (7.4-10.4); MONOCYTE # 0.7 10^3/ul (0.3-0.9); MONOCYTES % 6.4 % (0.0-11.0); NEUTROPHILS % 77.1 % (39.0-77.0); PLATELET COUNT 350 10^3/UL (140-415); RED BLOOD COUNT 3.38 10^6/ul (4.70-6.10); RED CELL DISTRIBUTION WIDTH 15.1 % (11.5-14.5)
[2017-09-12 09:33] LABS: WHITE BLOOD COUNT 10.3 10^3/ul (4.8-10.8)
[2017-09-12 10:04] LABS: ANION GAP 13 (8-16); BLOOD UREA NITROGEN 29 mg/dl (7-20); CALCIUM 9.1 mg/dl (8.4-10.2); CARBON DIOXIDE 26 mmol/L (21-31); CHLORIDE 106 mmol/L (97-110); CREATININE 0.85 mg/dl (0.61-1.24); GLUCOSE 116 mg/dl (70-220); POTASSIUM 4.3 mmol/L (3.5-5.1); SODIUM 141 mmol/L (135-144)
[2017-09-12] MEDS: FAMOTIDINE 20 MG INJ IV ×2 (10:21→20:20)
[2017-09-12] MEDS: ENOXAPARIN 30 MG/0.3 ML SYG SC (10:29)
[2017-09-12] MEDS: COLISTIMETHATE (25 MG/ML INHAL SYG) NEB ×2 (13:10→20:40)
[2017-09-13] MEDS: LEVALBUTEROL (HFA) 15 GM INHALER INH ×4 (01:19→19:48)
[2017-09-13] MEDS: COLISTIMETHATE (25 MG/ML INHAL SYG) NEB (08:39)
[2017-09-13] MEDS: FAMOTIDINE 20 MG INJ IV ×2 (08:56→22:15)
[2017-09-13] MEDS: ENOXAPARIN 30 MG/0.3 ML SYG SC (09:11)
[2017-09-13 09:26] LABS: ADD MAN DIFF? NO
[2017-09-13 09:31] LABS: WHITE BLOOD COUNT 8.9 10^3/ul (4.8-10.8)
[2017-09-13 09:31] LABS: BASOPHIL # 0.1 10^3/ul (0.0-0.1); EOSINOPHILS # 0.3 10^3/ul (0.0-0.5); EOSINOPHILS % 3.6 % (0.0-7.0); HEMATOCRIT 32.2 % (42.0-52.0); HEMOGLOBIN 10.2 g/dl (14.0-18.0); LYMPHOCYTES # 1.1 10^3/ul (0.8-2.9); LYMPHOCYTES % 12.2 % (15.0-51.0); MEAN CORPUSCULAR HEMOGLOBIN 29.2 pg (29.0-33.0); MEAN CORPUSCULAR HGB CONC 31.7 g/dl (32.0-37.0); MEAN CORPUSCULAR VOLUME 92.3 fl (82.0-101.0); MEAN PLATELET VOLUME 10.8 fl (7.4-10.4); MONOCYTE # 0.6 10^3/ul (0.3-0.9); MONOCYTES % 6.8 % (0.0-11.0); NEUTROPHIL # 6.7 10^3/ul (1.6-7.5); NEUTROPHILS % 75.9 % (39.0-77.0); PLATELET COUNT 343 10^3/UL (140-415); RED BLOOD COUNT 3.49 10^6/ul (4.70-6.10); RED CELL DISTRIBUTION WIDTH 15.2 % (11.5-14.5)
[2017-09-13 10:07] LABS: ANION GAP 16 (8-16); BLOOD UREA NITROGEN 29 mg/dl (7-20); CARBON DIOXIDE 24 mmol/L (21-31); CHLORIDE 106 mmol/L (97-110); CREATININE 0.77 mg/dl (0.61-1.24); GLUCOSE 128 mg/dl (70-220); POTASSIUM 4.2 mmol/L (3.5-5.1); SODIUM 142 mmol/L (135-144)
[2017-09-13] MEDS: VANCOMYCIN 750 MG in DEXTROSE 5% 150 ML IVPB (13:54)
[2017-09-14] MEDS: LEVALBUTEROL (HFA) 15 GM INHALER INH ×4 (01:22→20:33)
[2017-09-14] MEDS: FAMOTIDINE 20 MG INJ IV ×2 (09:17→21:54)
[2017-09-14] MEDS: ENOXAPARIN 30 MG/0.3 ML SYG SC (09:23)
[2017-09-14] MEDS: VANCOMYCIN 750 MG in DEXTROSE 5% 150 ML IVPB (12:44)
[2017-09-15] MEDS: LEVALBUTEROL (HFA) 15 GM INHALER INH ×3 (01:33→14:08)
[2017-09-15] MEDS: FAMOTIDINE 20 MG INJ IV (08:49)
[2017-09-15] MEDS: ENOXAPARIN 30 MG/0.3 ML SYG SC (08:54)
[2017-09-15] MEDS: VANCOMYCIN 750 MG in DEXTROSE 5% 150 ML IVPB (12:53)
[2017-09-15] MEDS: BISACODYL 10 MG SUPP PR (17:30)
[2017-09-15] MEDS ORDERED: LORAZEPAM 0.5 MG TAB GTB (17:30)
[2017-09-15] MEDS ORDERED: ALBUTEROL/IPRATROPIUM (NEB) 3 ML AMP NEB (20:00)
[2017-09-15] MEDS ORDERED: SENNA TAB GTB (21:00)
[2017-09-15] MEDS ORDERED: CHLORHEXIDINE GLUCONATE 15 ML UD CUP MM (21:00)
[2017-09-15] MEDS ORDERED: DOCUSATE SODIUM 100 MG CAP PO (21:00)
[2017-09-16] MEDS ORDERED: LANSOPRAZOLE 30 MG CAP GTB (06:00)
[2017-09-16] MEDS ORDERED: METOPROLOL 25 MG TAB GTB (09:00)
[2017-09-16] MEDS ORDERED: ESCITALOPRAM 10 MG TAB GTB (09:00)
[2017-09-16] MEDS ORDERED: FERROUS SULFATE 60 MG/ML 5ML CUP GTB (09:00)
[2017-09-16] MEDS ORDERED: ASPIRIN (EC) 81 MG TAB PO (09:00)
== END 2017-09-15 19:55 | disposition short-term general hospital (02) | DRG 870 ==
LOC: TEL 23:23 → E/R 20:13
PROC: 5A1955Z Respiratory Ventilation, Greater than 96 Consecutive Hours (ICD-10-PCS; principal; 2017-08-26)
PROC: 4A033R1 Measurement of Arterial Saturation, Peripheral, Percutaneous Approach (ICD-10-PCS; 2017-08-26)
DX: A41.9 Sepsis, unspecified organism (principal); G82.50 Quadriplegia, unspecified; J18.9 Pneumonia, unspecified organism; N17.0 Acute kidney failure with tubular necrosis; N39.0 Urinary tract infection, site not specified; E87.0 Hyperosmolality and hypernatremia; J96.10 Chronic respiratory failure, unspecified whether with hypoxia or hypercapnia; Z99.11 Dependence on respirator [ventilator] status; I50.30 Unspecified diastolic (congestive) heart failure; R65.20 Severe sepsis without septic shock; F32.9 Major depressive disorder, single episode, unspecified; F41.9 Anxiety disorder, unspecified; Z66 Do not resuscitate; I11.0 Hypertensive heart disease with heart failure; E87.6 Hypokalemia; Z93.0 Tracheostomy status; M25.452 Effusion, left hip; Z93.1 Gastrostomy status; I25.10 Atherosclerotic heart disease of native coronary artery without angina pectoris; I25.2 Old myocardial infarction; R13.10 Dysphagia, unspecified; D64.9 Anemia, unspecified; Z87.891 Personal history of nicotine dependence; Z79.82 Long term (current) use of aspirin
CPT/HCPCS: 36415; 36600; 71045; 72192; 73510; 74018; 76775; 78806; 80048; 80053; 80202; 81001; 82565; 82803; 82962; 83605; 84484; 84520; 85025; 85610; 85730; 87040; 87070; 87081; 87086; 93005; 93308; 94002; 94003; 94640; 94664; 96372; 96374; 96375; 96376; 99291-25

== ENCOUNTER 2018-02-10 06:21 | Inpatient (IN) | payer OTHER, MEDICAID ==
[2018-02-10 07:22] LABS: ADD MAN DIFF? NO
[2018-02-10 07:24] LABS: WHITE BLOOD COUNT 15.5 10^3/ul (4.8-10.8)
[2018-02-10 07:24] LABS: BASOPHIL # 0.1 10^3/ul (0.0-0.1); BASOPHILS % 0.3 % (0.0-2.0); EOSINOPHILS % 0.1 % (0.0-7.0); HEMATOCRIT 38.7 % (42.0-52.0); LYMPHOCYTES # 1.1 10^3/ul (0.8-2.9); LYMPHOCYTES % 7.2 % (15.0-51.0); MEAN CORPUSCULAR HEMOGLOBIN 28.6 pg (29.0-33.0); MEAN CORPUSCULAR VOLUME 92.4 fl (82.0-101.0); MEAN PLATELET VOLUME 9.7 fl (7.4-10.4); MONOCYTES % 6.2 % (0.0-11.0); NEUTROPHIL # 13.3 10^3/ul (1.6-7.5); NEUTROPHILS % 85.7 % (39.0-77.0); PLATELET COUNT 504 10^3/UL (140-415); RED BLOOD COUNT 4.19 10^6/ul (4.70-6.10); RED CELL DISTRIBUTION WIDTH 13.2 % (11.5-14.5)
[2018-02-10 07:46] LABS: INR 1.09; PROTIME 14.3 Sec (11.9-14.9); PT RATIO 1.1
[2018-02-10 07:47] LABS: PARTIAL THROMBOPLASTIN TIME 35.7 Sec (23.0-35.0)
[2018-02-10 07:58] LABS: OCCULT BLOOD STOOL NEGATIVE (NEGATIVE)
[2018-02-10] MEDS: PANTOPRAZOLE IV 80 MG in SOD CHLORIDE 0.9% 100 ML IVPB (08:02)
[2018-02-10] MEDS: SODIUM CHLORIDE 0.9% 1L BAG IV* (08:02)
[2018-02-10] MEDS: CEFTRIAXONE 1 GM/50 ML (PMX) 50 ML IVPB (08:03)
[2018-02-10] MEDS: PANTOPRAZOLE IV 80 MG in SOD CHLORIDE 0.9% 100 ML IV (08:03)
[2018-02-10 08:07] LABS: ALANINE AMINOTRANSFERASE 25 IU/L (13-69); ALBUMIN 3.5 g/dl (3.3-4.9); ALBUMIN/GLOBULIN RATIO 0.68; ALKALINE PHOSPHATASE 157 IU/L (42-121); ANION GAP 18 (8-16); ASPARTATE AMINO TRANSFERASE 25 IU/L (15-46); BILIRUBIN,INDIRECT 0.2 mg/dl (0-1.1); BILIRUBIN,TOTAL 0.2 mg/dl (0.2-1.3); BLOOD UREA NITROGEN 47 mg/dl (7-20); CARBON DIOXIDE 27 mmol/L (21-31); CHLORIDE 103 mmol/L (97-110); CREATININE 1.19 mg/dl (0.61-1.24); GLUCOSE 200 mg/dl (70-220); LIPASE 19 U/L (23-300); POTASSIUM 3.9 mmol/L (3.5-5.1); SODIUM 144 mmol/L (135-144); TOTAL PROTEIN 8.6 g/dl (6.1-8.1)
[2018-02-10] MEDS: ALBUTEROL 0.083% (NEB) 2.5 MG/3 ML AMP INH (08:10)
[2018-02-10] MEDS: IPRATROPIUM (NEB) 0.5 MG/2.5 ML AMP INH (08:10)
[2018-02-10 08:15] LABS: TROPONIN-I 0.032 ng/ml (0.000-0.120)
[2018-02-10] MEDS ORDERED: PIPER-TAZO 3.375 GM IV (PMX) 100 ML IVPB (14:00)
[2018-02-10 15:34] LABS: Allen Test ACCEPTAB; Arterial MetHb 0.3 % (0.0-1.5); MODE VENT - AC; Site Left Radial
[2018-02-10] MEDS: MEROPENEM 1 GM/50ML(PMX) 50 ML IVPB ×2 (15:37→23:57)
[2018-02-10] MEDS: D5W-0.45 NACL + KCL 20 MEQ 1,000 ML IV ×2 (15:37→23:00)
[2018-02-10] MEDS: PANTOPRAZOLE 40 MG INJ IV (18:18)
[2018-02-10] MEDS ORDERED: ONDANSETRON 4 MG INJ IV (19:30)
[2018-02-11] MEDS: D5W-0.45 NACL + KCL 20 MEQ 1,000 ML IV ×2 (04:00→17:40)
[2018-02-11] MEDS: PANTOPRAZOLE 40 MG INJ IV ×2 (05:08→17:40)
[2018-02-11 05:37] LABS: AADO2 Arterial 219.8 mmHg (7.0-24.0); Arterial Base Excess -1.5 mmol/L (-3.0-3); Arterial Blood Gas Oxygen Sat 99.3 mmHG (95.0-98.0); Arterial COHb 0.5 % (0.0-3.0); Arterial Fraction of Oxyhgb 98.5 % (93.0-99.0); Arterial HCO3 23.5 mmol/L (22.0-26.0); Arterial Total Hemglobin 13.5 g/dl (12.0-18.0); Arterial pCO2 40.3 mmhg (35-45)
[2018-02-11 05:59] LABS: ADD MAN DIFF? NO
[2018-02-11 06:11] LABS: WHITE BLOOD COUNT 13.6 10^3/ul (4.8-10.8)
[2018-02-11 06:11] LABS: BASOPHILS % 0.3 % (0.0-2.0); EOSINOPHILS % 0.1 % (0.0-7.0); HEMATOCRIT 31.5 % (42.0-52.0); HEMOGLOBIN 9.5 g/dl (14.0-18.0); LYMPHOCYTES # 0.9 10^3/ul (0.8-2.9); LYMPHOCYTES % 6.9 % (15.0-51.0); MEAN CORPUSCULAR HEMOGLOBIN 28.2 pg (29.0-33.0); MEAN CORPUSCULAR HGB CONC 30.2 g/dl (32.0-37.0); MEAN CORPUSCULAR VOLUME 93.5 fl (82.0-101.0); MEAN PLATELET VOLUME 10.1 fl (7.4-10.4); MONOCYTE # 0.9 10^3/ul (0.3-0.9); MONOCYTES % 6.8 % (0.0-11.0); NEUTROPHIL # 11.6 10^3/ul (1.6-7.5); NEUTROPHILS % 85.5 % (39.0-77.0); PLATELET COUNT 362 10^3/UL (140-415); RED BLOOD COUNT 3.37 10^6/ul (4.70-6.10); RED CELL DISTRIBUTION WIDTH 13.3 % (11.5-14.5)
[2018-02-11 06:43] LABS: LACTIC ACID 0.8 mmol/L (0.5-2.0)
[2018-02-11 06:45] LABS: ALANINE AMINOTRANSFERASE 17 IU/L (13-69); ALBUMIN 2.7 g/dl (3.3-4.9); ALBUMIN/GLOBULIN RATIO 0.71; ALKALINE PHOSPHATASE 115 IU/L (42-121); ANION GAP 12 (8-16); ASPARTATE AMINO TRANSFERASE 21 IU/L (15-46); BILIRUBIN,INDIRECT 0.2 mg/dl (0-1.1); BILIRUBIN,TOTAL 0.2 mg/dl (0.2-1.3); BLOOD UREA NITROGEN 51 mg/dl (7-20); CALCIUM 9.2 mg/dl (8.4-10.2); CARBON DIOXIDE 26 mmol/L (21-31); CHLORIDE 112 mmol/L (97-110); CREATININE 0.89 mg/dl (0.61-1.24); GLUCOSE 101 mg/dl (70-220); POTASSIUM 4.6 mmol/L (3.5-5.1); SODIUM 145 mmol/L (135-144); TOTAL PROTEIN 6.5 g/dl (6.1-8.1)
[2018-02-11 07:53] LABS: THYROID STIMULATING HORMONE 0.497 MIU/L (0.465-4.680)
[2018-02-11] MEDS: MEROPENEM 1 GM/50ML(PMX) 50 ML IVPB ×2 (08:58→20:56)
[2018-02-11] MEDS: RIFAXIMIN 200 MG TAB GTB (20:56)
[2018-02-12] MEDS: D5W-0.45 NACL + KCL 20 MEQ 1,000 ML IV ×2 (03:54→15:07)
[2018-02-12] MEDS: PANTOPRAZOLE 40 MG INJ IV ×2 (05:02→17:19)
[2018-02-12] MEDS: RIFAXIMIN 200 MG TAB GTB ×3 (08:51→22:05)
[2018-02-12] MEDS: MEROPENEM 1 GM/50ML(PMX) 50 ML IVPB (08:51)
[2018-02-12] MEDS: ACETAMINOPHEN 325 MG TAB PO (09:11)
[2018-02-12] MEDS: metroNIDAZOLE 500 MG/NS (PMX) 100 ML IVPB ×2 (15:56→22:05)
[2018-02-12] MEDS: CASPOFUNGIN 70 MG in SOD CHLORIDE 0.9% 250 ML IVPB (17:16)
[2018-02-13] MEDS: D5W-0.45 NACL + KCL 20 MEQ 1,000 ML IV ×2 (00:52→12:22)
[2018-02-13] MEDS: PANTOPRAZOLE 40 MG INJ IV ×2 (05:18→17:27)
[2018-02-13] MEDS: metroNIDAZOLE 500 MG/NS (PMX) 100 ML IVPB ×3 (05:18→21:46)
[2018-02-13 05:46] LABS: ADD MAN DIFF? NO
[2018-02-13 05:58] LABS: WHITE BLOOD COUNT 8.6 10^3/ul (4.8-10.8)
[2018-02-13 05:58] LABS: BASOPHIL # 0.1 10^3/ul (0.0-0.1); BASOPHILS % 0.6 % (0.0-2.0); EOSINOPHILS # 0.2 10^3/ul (0.0-0.5); EOSINOPHILS % 1.9 % (0.0-7.0); HEMATOCRIT 32.5 % (42.0-52.0); HEMOGLOBIN 9.9 g/dl (14.0-18.0); LYMPHOCYTES % 11.7 % (15.0-51.0); MEAN CORPUSCULAR HEMOGLOBIN 28.5 pg (29.0-33.0); MEAN CORPUSCULAR HGB CONC 30.5 g/dl (32.0-37.0); MEAN CORPUSCULAR VOLUME 93.7 fl (82.0-101.0); MEAN PLATELET VOLUME 9.5 fl (7.4-10.4); MONOCYTE # 0.7 10^3/ul (0.3-0.9); MONOCYTES % 8.3 % (0.0-11.0); NEUTROPHIL # 6.6 10^3/ul (1.6-7.5); NEUTROPHILS % 77.1 % (39.0-77.0); PLATELET COUNT 320 10^3/UL (140-415); RED BLOOD COUNT 3.47 10^6/ul (4.70-6.10); RED CELL DISTRIBUTION WIDTH 13.2 % (11.5-14.5)
[2018-02-13 06:22] LABS: ANION GAP 10 (8-16); BLOOD UREA NITROGEN 21 mg/dl (7-20); CALCIUM 9.2 mg/dl (8.4-10.2); CARBON DIOXIDE 28 mmol/L (21-31); CHLORIDE 115 mmol/L (97-110); CREATININE 0.63 mg/dl (0.61-1.24); GLUCOSE 108 mg/dl (70-220); POTASSIUM 4.1 mmol/L (3.5-5.1); SODIUM 149 mmol/L (135-144)
[2018-02-13] MEDS: RIFAXIMIN 200 MG TAB GTB ×3 (09:11→20:11)
[2018-02-13] MEDS: CASPOFUNGIN 50 MG in SOD CHLORIDE 0.9% 250 ML IVPB (17:26)
[2018-02-14] MEDS: D5W-0.45 NACL + KCL 20 MEQ 1,000 ML IV (01:08)
[2018-02-14 05:33] LABS: ADD MAN DIFF? NO
[2018-02-14] MEDS: PANTOPRAZOLE 40 MG INJ IV ×2 (05:37→17:42)
[2018-02-14] MEDS: metroNIDAZOLE 500 MG/NS (PMX) 100 ML IVPB ×3 (05:37→21:39)
[2018-02-14 05:45] LABS: BASOPHILS % 0.5 % (0.0-2.0); EOSINOPHILS # 0.3 10^3/ul (0.0-0.5); EOSINOPHILS % 3.4 % (0.0-7.0); HEMATOCRIT 33.1 % (42.0-52.0); HEMOGLOBIN 10.1 g/dl (14.0-18.0); LYMPHOCYTES # 1.7 10^3/ul (0.8-2.9); LYMPHOCYTES % 21.8 % (15.0-51.0); MEAN CORPUSCULAR HEMOGLOBIN 28.3 pg (29.0-33.0); MEAN CORPUSCULAR HGB CONC 30.5 g/dl (32.0-37.0); MEAN CORPUSCULAR VOLUME 92.7 fl (82.0-101.0); MEAN PLATELET VOLUME 9.7 fl (7.4-10.4); MONOCYTE # 0.8 10^3/ul (0.3-0.9); MONOCYTES % 9.9 % (0.0-11.0); NEUTROPHIL # 5.1 10^3/ul (1.6-7.5); PLATELET COUNT 337 10^3/UL (140-415); RED BLOOD COUNT 3.57 10^6/ul (4.70-6.10); RED CELL DISTRIBUTION WIDTH 13.3 % (11.5-14.5)
[2018-02-14 06:17] LABS: ANION GAP 9 (8-16); BLOOD UREA NITROGEN 18 mg/dl (7-20); CARBON DIOXIDE 29 mmol/L (21-31); CHLORIDE 114 mmol/L (97-110); CREATININE 0.73 mg/dl (0.61-1.24); GLUCOSE 106 mg/dl (70-220); POTASSIUM 3.9 mmol/L (3.5-5.1); SODIUM 148 mmol/L (135-144)
[2018-02-14] MEDS: RIFAXIMIN 200 MG TAB GTB ×3 (08:34→21:39)
[2018-02-15] MEDS: PANTOPRAZOLE 40 MG INJ IV ×2 (05:42→19:24)
[2018-02-15] MEDS: metroNIDAZOLE 500 MG/NS (PMX) 100 ML IVPB ×3 (05:43→21:12)
[2018-02-15 06:47] LABS: BLOOD UREA NITROGEN 21 mg/dl (7-20); CALCIUM 9.2 mg/dl (8.4-10.2); CARBON DIOXIDE 32 mmol/L (21-31); CHLORIDE 110 mmol/L (97-110); CREATININE 0.71 mg/dl (0.61-1.24); GLUCOSE 109 mg/dl (70-220); POTASSIUM 3.9 mmol/L (3.5-5.1); SODIUM 147 mmol/L (135-144)
[2018-02-15 09:27] LABS: ANION GAP 5 (5-13)
[2018-02-15] MEDS: RIFAXIMIN 200 MG TAB GTB ×3 (12:14→21:12)
[2018-02-16 05:49] LABS: ANION GAP 10 (5-13); BLOOD UREA NITROGEN 21 mg/dl (7-20); CALCIUM 9.1 mg/dl (8.4-10.2); CARBON DIOXIDE 27 mmol/L (21-31); CHLORIDE 111 mmol/L (97-110); CREATININE 0.69 mg/dl (0.61-1.24); GLUCOSE 94 mg/dl (70-220); POTASSIUM 3.9 mmol/L (3.5-5.1); SODIUM 148 mmol/L (135-144)
[2018-02-16] MEDS: metroNIDAZOLE 500 MG/NS (PMX) 100 ML IVPB ×3 (06:08→21:39)
[2018-02-16] MEDS: PANTOPRAZOLE 40 MG INJ IV ×2 (06:09→18:29)
[2018-02-16] MEDS: RIFAXIMIN 200 MG TAB GTB ×3 (09:40→21:39)
[2018-02-17] MEDS: PANTOPRAZOLE 40 MG INJ IV ×2 (05:50→18:13)
[2018-02-17] MEDS: metroNIDAZOLE 500 MG/NS (PMX) 100 ML IVPB ×3 (05:50→21:34)
[2018-02-17 06:11] LABS: ADD MAN DIFF? NO
[2018-02-17 06:18] LABS: WHITE BLOOD COUNT 10.6 10^3/ul (4.8-10.8)
[2018-02-17 06:18] LABS: BASOPHIL # 0.1 10^3/ul (0.0-0.1); BASOPHILS % 0.7 % (0.0-2.0); EOSINOPHILS # 0.3 10^3/ul (0.0-0.5); EOSINOPHILS % 2.6 % (0.0-7.0); HEMATOCRIT 36.4 % (42.0-52.0); HEMOGLOBIN 11.4 g/dl (14.0-18.0); LYMPHOCYTES # 1.7 10^3/ul (0.8-2.9); LYMPHOCYTES % 16.1 % (15.0-51.0); MEAN CORPUSCULAR HEMOGLOBIN 28.6 pg (29.0-33.0); MEAN CORPUSCULAR HGB CONC 31.3 g/dl (32.0-37.0); MEAN CORPUSCULAR VOLUME 91.2 fl (82.0-101.0); MEAN PLATELET VOLUME 10.2 fl (7.4-10.4); MONOCYTE # 0.6 10^3/ul (0.3-0.9); MONOCYTES % 5.4 % (0.0-11.0); NEUTROPHIL # 7.9 10^3/ul (1.6-7.5); NEUTROPHILS % 74.7 % (39.0-77.0); PLATELET COUNT 382 10^3/UL (140-415); RED BLOOD COUNT 3.99 10^6/ul (4.70-6.10); RED CELL DISTRIBUTION WIDTH 13.5 % (11.5-14.5)
[2018-02-17 06:52] LABS: ANION GAP 6 (5-13); BLOOD UREA NITROGEN 24 mg/dl (7-20); CALCIUM 9.5 mg/dl (8.4-10.2); CARBON DIOXIDE 31 mmol/L (21-31); CHLORIDE 110 mmol/L (97-110); GLUCOSE 106 mg/dl (70-220); POTASSIUM 4.2 mmol/L (3.5-5.1); SODIUM 147 mmol/L (135-144)
[2018-02-17] MEDS: LANSOPRAZOLE 30 MG CAP GTB (08:59)
[2018-02-17] MEDS: RIFAXIMIN 200 MG TAB GTB ×3 (08:59→21:33)
[2018-02-17] MEDS: ESCITALOPRAM 10 MG TAB GTB (08:59)
[2018-02-17] MEDS ORDERED: AMIKACIN IV PER PHARMACY XX (10:30)
[2018-02-17] MEDS: AMIKACIN 900 MG in SOD CHLORIDE 0.9% 250 ML IVPB (13:22)
[2018-02-18] MEDS: PANTOPRAZOLE 40 MG INJ IV ×2 (05:25→18:14)
[2018-02-18] MEDS: metroNIDAZOLE 500 MG/NS (PMX) 100 ML IVPB ×3 (05:25→22:02)
[2018-02-18 09:45] LABS: ANION GAP 7 (5-13); BLOOD UREA NITROGEN 25 mg/dl (7-20); CALCIUM 9.2 mg/dl (8.4-10.2); CARBON DIOXIDE 28 mmol/L (21-31); CHLORIDE 111 mmol/L (97-110); CREATININE 0.79 mg/dl (0.61-1.24); GLUCOSE 109 mg/dl (70-220); POTASSIUM 4.5 mmol/L (3.5-5.1); SODIUM 146 mmol/L (135-144)
[2018-02-18] MEDS: ESCITALOPRAM 10 MG TAB GTB (10:15)
[2018-02-18] MEDS: LANSOPRAZOLE 30 MG CAP GTB (10:15)
[2018-02-18] MEDS: RIFAXIMIN 200 MG TAB GTB ×3 (13:00→21:00)
[2018-02-18] MEDS: ACETAMINOPHEN 325 MG TAB PO (15:24)
[2018-02-19] MEDS: AMIKACIN 900 MG in SOD CHLORIDE 0.9% 250 ML IVPB (02:09)
[2018-02-19] MEDS: metroNIDAZOLE 500 MG/NS (PMX) 100 ML IVPB ×3 (05:37→21:19)
[2018-02-19] MEDS: PANTOPRAZOLE 40 MG INJ IV ×2 (05:37→17:29)
[2018-02-19 05:38] LABS: ADD UMIC YES; UR ASCORBIC ACID NEGATIVE (NEGATIVE); UR BACTERIA FEW /HPF (NONE SEEN); UR BILIRUBIN (Dip) NEGATIVE (NEGATIVE); UR BLOOD (Dip) NEGATIVE (NEGATIVE); UR CLARITY CLOUDY (CLEAR); UR COLOR YELLOW (YELLOW); UR GLUCOSE (Dip) NEGATIVE (NEGATIVE); UR KETONES (Dip) NEGATIVE (NEGATIVE); UR LEUKOCYTE ESTERASE (Dip) 3+ Leu/ul (NEGATIVE); UR NITRITE (Dip) NEGATIVE (NEGATIVE); UR RBC 22 /HPF (0-5); UR SPECIFIC GRAVITY (Dip) 1.015 (1.003-1.030); UR TOTAL PROTEIN (Dip) 1+ mg/dl (NEGATIVE); UR UROBILINOGEN (Dip) NEGATIVE (NEGATIVE); UR WBC > 182 /HPF (0-5)
[2018-02-19 05:49] LABS: ADD MAN DIFF? NO
[2018-02-19 05:55] LABS: WHITE BLOOD COUNT 10.1 10^3/ul (4.8-10.8)
[2018-02-19 05:55] LABS: BASOPHIL # 0.1 10^3/ul (0.0-0.1); BASOPHILS % 0.7 % (0.0-2.0); EOSINOPHILS # 0.3 10^3/ul (0.0-0.5); EOSINOPHILS % 2.6 % (0.0-7.0); HEMATOCRIT 35.9 % (42.0-52.0); HEMOGLOBIN 10.9 g/dl (14.0-18.0); LYMPHOCYTES # 1.7 10^3/ul (0.8-2.9); LYMPHOCYTES % 16.9 % (15.0-51.0); MEAN CORPUSCULAR HEMOGLOBIN 28.1 pg (29.0-33.0); MEAN CORPUSCULAR HGB CONC 30.4 g/dl (32.0-37.0); MEAN CORPUSCULAR VOLUME 92.5 fl (82.0-101.0); MEAN PLATELET VOLUME 10.7 fl (7.4-10.4); MONOCYTE # 0.7 10^3/ul (0.3-0.9); NEUTROPHIL # 7.3 10^3/ul (1.6-7.5); NEUTROPHILS % 72.6 % (39.0-77.0); PLATELET COUNT 392 10^3/UL (140-415); RED BLOOD COUNT 3.88 10^6/ul (4.70-6.10); RED CELL DISTRIBUTION WIDTH 14.5 % (11.5-14.5)
[2018-02-19 06:34] LABS: ANION GAP 10 (5-13); BLOOD UREA NITROGEN 26 mg/dl (7-20); CALCIUM 9.1 mg/dl (8.4-10.2); CARBON DIOXIDE 27 mmol/L (21-31); CHLORIDE 110 mmol/L (97-110); CREATININE 0.85 mg/dl (0.61-1.24); GLUCOSE 110 mg/dl (70-220); POTASSIUM 4.4 mmol/L (3.5-5.1); SODIUM 147 mmol/L (135-144)
[2018-02-19] MEDS: RIFAXIMIN 200 MG TAB GTB ×3 (08:56→21:18)
[2018-02-19] MEDS: ESCITALOPRAM 10 MG TAB GTB (08:56)
[2018-02-19] MEDS: LANSOPRAZOLE 30 MG CAP GTB (08:56)
[2018-02-19] MEDS: ACETAMINOPHEN 325 MG TAB PO ×2 (09:00→14:25)
[2018-02-19] MEDS: FLUCONAZOLE 100 MG TAB PO (12:38)
[2018-02-20] MEDS: metroNIDAZOLE 500 MG/NS (PMX) 100 ML IVPB ×3 (05:08→23:00)
[2018-02-20] MEDS: PANTOPRAZOLE 40 MG INJ IV ×2 (05:08→17:04)
[2018-02-20 06:38] LABS: ADD MAN DIFF? NO
[2018-02-20 06:41] LABS: WHITE BLOOD COUNT 9.7 10^3/ul (4.8-10.8)
[2018-02-20 06:41] LABS: BASOPHIL # 0.1 10^3/ul (0.0-0.1); BASOPHILS % 0.6 % (0.0-2.0); EOSINOPHILS # 0.2 10^3/ul (0.0-0.5); EOSINOPHILS % 2.4 % (0.0-7.0); HEMATOCRIT 36.5 % (42.0-52.0); HEMOGLOBIN 11.1 g/dl (14.0-18.0); LYMPHOCYTES # 1.4 10^3/ul (0.8-2.9); LYMPHOCYTES % 14.4 % (15.0-51.0); MEAN CORPUSCULAR HEMOGLOBIN 28.4 pg (29.0-33.0); MEAN CORPUSCULAR HGB CONC 30.4 g/dl (32.0-37.0); MEAN CORPUSCULAR VOLUME 93.4 fl (82.0-101.0); MEAN PLATELET VOLUME 11.1 fl (7.4-10.4); MONOCYTE # 0.8 10^3/ul (0.3-0.9); MONOCYTES % 7.8 % (0.0-11.0); NEUTROPHIL # 7.2 10^3/ul (1.6-7.5); NEUTROPHILS % 74.3 % (39.0-77.0); PLATELET COUNT 340 10^3/UL (140-415); RED BLOOD COUNT 3.91 10^6/ul (4.70-6.10); RED CELL DISTRIBUTION WIDTH 14.4 % (11.5-14.5)
[2018-02-20 08:12] LABS: ANION GAP 10 (5-13); BLOOD UREA NITROGEN 27 mg/dl (7-20); CALCIUM 8.8 mg/dl (8.4-10.2); CARBON DIOXIDE 26 mmol/L (21-31); CHLORIDE 112 mmol/L (97-110); CREATININE 0.72 mg/dl (0.61-1.24); GLUCOSE 112 mg/dl (70-220); POTASSIUM 4.8 mmol/L (3.5-5.1); SODIUM 148 mmol/L (135-144)
[2018-02-20] MEDS: ESCITALOPRAM 10 MG TAB GTB (08:53)
[2018-02-20] MEDS: LANSOPRAZOLE 30 MG CAP GTB (08:53)
[2018-02-20] MEDS: FLUCONAZOLE 100 MG TAB PO (08:53)
[2018-02-20] MEDS: RIFAXIMIN 200 MG TAB GTB ×3 (08:53→23:01)
[2018-02-20] MEDS: AMIKACIN 900 MG in SOD CHLORIDE 0.9% 250 ML IVPB (14:00)
[2018-02-20 18:21] LABS: AMIKACIN TROUGH <2.5 mg/L (4.0-8.0)
[2018-02-21] MEDS: metroNIDAZOLE 500 MG/NS (PMX) 100 ML IVPB ×2 (05:38→13:05)
[2018-02-21] MEDS: PANTOPRAZOLE 40 MG INJ IV (05:38)
[2018-02-21 05:52] LABS: ADD MAN DIFF? NO
[2018-02-21 05:59] LABS: BASOPHIL # 0.1 10^3/ul (0.0-0.1); BASOPHILS % 0.8 % (0.0-2.0); EOSINOPHILS # 0.3 10^3/ul (0.0-0.5); EOSINOPHILS % 3.3 % (0.0-7.0); HEMATOCRIT 37.2 % (42.0-52.0); HEMOGLOBIN 11.4 g/dl (14.0-18.0); LYMPHOCYTES # 1.3 10^3/ul (0.8-2.9); LYMPHOCYTES % 15.1 % (15.0-51.0); MEAN CORPUSCULAR HEMOGLOBIN 28.2 pg (29.0-33.0); MEAN CORPUSCULAR HGB CONC 30.6 g/dl (32.0-37.0); MEAN CORPUSCULAR VOLUME 92.1 fl (82.0-101.0); MEAN PLATELET VOLUME 10.4 fl (7.4-10.4); MONOCYTE # 0.6 10^3/ul (0.3-0.9); MONOCYTES % 7.3 % (0.0-11.0); NEUTROPHIL # 6.4 10^3/ul (1.6-7.5); NEUTROPHILS % 73.2 % (39.0-77.0); PLATELET COUNT 375 10^3/UL (140-415); RED BLOOD COUNT 4.04 10^6/ul (4.70-6.10); RED CELL DISTRIBUTION WIDTH 14.6 % (11.5-14.5)
[2018-02-21 05:59] LABS: WHITE BLOOD COUNT 8.8 10^3/ul (4.8-10.8)
[2018-02-21 06:38] LABS: ANION GAP 10 (5-13); BLOOD UREA NITROGEN 25 mg/dl (7-20); CALCIUM 9.1 mg/dl (8.4-10.2); CARBON DIOXIDE 27 mmol/L (21-31); CHLORIDE 112 mmol/L (97-110); CREATININE 0.69 mg/dl (0.61-1.24); Estimated GFR > 60 mL/min (>60); GLUCOSE 113 mg/dl (70-220); POTASSIUM 4.6 mmol/L (3.5-5.1)
[2018-02-21 06:56] LABS: SODIUM 149 mmol/L (135-144)
[2018-02-21] MEDS: ESCITALOPRAM 10 MG TAB GTB (08:07)
[2018-02-21] MEDS: RIFAXIMIN 200 MG TAB GTB ×3 (08:07→21:13)
[2018-02-21] MEDS: LANSOPRAZOLE 30 MG CAP GTB (08:07)
[2018-02-21] MEDS: AMIKACIN 900 MG in SOD CHLORIDE 0.9% 250 ML IVPB (08:08)
[2018-02-21] MEDS: FLUCONAZOLE 100 MG TAB PO (08:08)
[2018-02-21] MEDS: ACETAMINOPHEN 325 MG TAB PO (21:12)
[2018-02-21] MEDS: metroNIDAZOLE 500 MG TAB PO (21:13)
[2018-02-22] MEDS: ACETAMINOPHEN 325 MG TAB PO ×4 (01:29→23:26)
[2018-02-22] MEDS: metroNIDAZOLE 500 MG TAB PO (05:22)
[2018-02-22] MEDS: FLUCONAZOLE 100 MG TAB PO (08:13)
[2018-02-22] MEDS: LANSOPRAZOLE 30 MG CAP GTB (08:14)
[2018-02-22] MEDS: ESCITALOPRAM 10 MG TAB GTB (08:14)
[2018-02-22] MEDS: RIFAXIMIN 200 MG TAB GTB ×3 (08:14→21:04)
[2018-02-22] MEDS: MEROPENEM 1 GM/50ML(PMX) 50 ML IVPB ×2 (13:32→21:05)
[2018-02-22] MEDS: DEXTROSE 5% 1,000 ML IV (15:33)
[2018-02-22] MEDS: VANCOMYCIN HCL 250 MG/5ML POSYG PO ×2 (17:21→23:26)
[2018-02-22] MEDS ORDERED: AMIKACIN 900 MG in SOD CHLORIDE 0.9% 250 ML IVPB (20:00)
[2018-02-23 05:03] LABS: ADD MAN DIFF? NO
[2018-02-23 05:04] LABS: BASOPHIL # 0.1 10^3/ul (0.0-0.1); BASOPHILS % 0.8 % (0.0-2.0); EOSINOPHILS # 0.3 10^3/ul (0.0-0.5); HEMATOCRIT 35.6 % (42.0-52.0); HEMOGLOBIN 10.9 g/dl (14.0-18.0); LYMPHOCYTES # 1.4 10^3/ul (0.8-2.9); LYMPHOCYTES % 15.9 % (15.0-51.0); MEAN CORPUSCULAR HEMOGLOBIN 28.3 pg (29.0-33.0); MEAN CORPUSCULAR HGB CONC 30.6 g/dl (32.0-37.0); MEAN CORPUSCULAR VOLUME 92.5 fl (82.0-101.0); MEAN PLATELET VOLUME 10.5 fl (7.4-10.4); MONOCYTE # 0.8 10^3/ul (0.3-0.9); NEUTROPHIL # 6.4 10^3/ul (1.6-7.5); NEUTROPHILS % 71.1 % (39.0-77.0); PLATELET COUNT 330 10^3/UL (140-415); RED BLOOD COUNT 3.85 10^6/ul (4.70-6.10); RED CELL DISTRIBUTION WIDTH 15.1 % (11.5-14.5)
[2018-02-23 05:04] LABS: WHITE BLOOD COUNT 8.9 10^3/ul (4.8-10.8)
[2018-02-23 05:36] LABS: ANION GAP 9 (5-13); BLOOD UREA NITROGEN 29 mg/dl (7-20); CALCIUM 8.9 mg/dl (8.4-10.2); CARBON DIOXIDE 27 mmol/L (21-31); CHLORIDE 107 mmol/L (97-110); Estimated GFR > 60 mL/min (>60); GLUCOSE 121 mg/dl (70-220); POTASSIUM 4.5 mmol/L (3.5-5.1); SODIUM 143 mmol/L (135-144)
[2018-02-23] MEDS: MEROPENEM 1 GM/50ML(PMX) 50 ML IVPB ×3 (05:38→21:22)
[2018-02-23] MEDS: VANCOMYCIN HCL 250 MG/5ML POSYG PO ×3 (05:38→17:45)
[2018-02-23] MEDS: FLUCONAZOLE 100 MG TAB PO (09:14)
[2018-02-23] MEDS: LANSOPRAZOLE 30 MG CAP GTB (09:14)
[2018-02-23] MEDS: RIFAXIMIN 200 MG TAB GTB ×3 (09:14→21:13)
[2018-02-23] MEDS: ESCITALOPRAM 10 MG TAB GTB (09:14)
[2018-02-23] MEDS: ACETAMINOPHEN 325 MG TAB PO (09:15)
[2018-02-23] MEDS: DEXTROSE 5% 1,000 ML IV ×2 (11:00→13:25)
[2018-02-24] MEDS: VANCOMYCIN HCL 250 MG/5ML POSYG PO ×4 (00:04→18:02)
[2018-02-24] MEDS: MEROPENEM 1 GM/50ML(PMX) 50 ML IVPB ×3 (05:55→21:34)
[2018-02-24 06:18] LABS: ADD MAN DIFF? NO
[2018-02-24 06:21] LABS: WHITE BLOOD COUNT 7.5 10^3/ul (4.8-10.8)
[2018-02-24 06:21] LABS: BASOPHIL # 0.1 10^3/ul (0.0-0.1); BASOPHILS % 0.8 % (0.0-2.0); EOSINOPHILS # 0.4 10^3/ul (0.0-0.5); EOSINOPHILS % 5.4 % (0.0-7.0); HEMATOCRIT 34.1 % (42.0-52.0); HEMOGLOBIN 10.6 g/dl (14.0-18.0); LYMPHOCYTES # 0.8 10^3/ul (0.8-2.9); LYMPHOCYTES % 10.9 % (15.0-51.0); MEAN CORPUSCULAR HEMOGLOBIN 28.6 pg (29.0-33.0); MEAN CORPUSCULAR HGB CONC 31.1 g/dl (32.0-37.0); MEAN CORPUSCULAR VOLUME 91.9 fl (82.0-101.0); MEAN PLATELET VOLUME 10.8 fl (7.4-10.4); MONOCYTE # 0.7 10^3/ul (0.3-0.9); MONOCYTES % 9.1 % (0.0-11.0); NEUTROPHIL # 5.5 10^3/ul (1.6-7.5); NEUTROPHILS % 73.4 % (39.0-77.0); PLATELET COUNT 310 10^3/UL (140-415); RED BLOOD COUNT 3.71 10^6/ul (4.70-6.10)
[2018-02-24] MEDS: DEXTROSE 5% 1,000 ML IV (07:00)
[2018-02-24 07:18] LABS: ANION GAP 9 (5-13); BLOOD UREA NITROGEN 26 mg/dl (7-20); CALCIUM 9.2 mg/dl (8.4-10.2); CARBON DIOXIDE 28 mmol/L (21-31); CHLORIDE 101 mmol/L (97-110); CREATININE 0.66 mg/dl (0.61-1.24); Estimated GFR > 60 mL/min (>60); GLUCOSE 108 mg/dl (70-220); POTASSIUM 4.3 mmol/L (3.5-5.1); SODIUM 138 mmol/L (135-144)
[2018-02-24] MEDS: ESCITALOPRAM 10 MG TAB GTB (09:26)
[2018-02-24] MEDS: FLUCONAZOLE 100 MG TAB PO (09:26)
[2018-02-24] MEDS: LANSOPRAZOLE 30 MG CAP GTB (09:26)
[2018-02-24] MEDS: RIFAXIMIN 200 MG TAB GTB ×3 (09:26→21:34)
[2018-02-25] MEDS: VANCOMYCIN HCL 250 MG/5ML POSYG PO ×5 (00:36→23:28)
[2018-02-25] MEDS: MEROPENEM 1 GM/50ML(PMX) 50 ML IVPB ×3 (06:14→21:16)
[2018-02-25 06:19] LABS: ADD MAN DIFF? NO
[2018-02-25 06:36] LABS: WHITE BLOOD COUNT 9.3 10^3/ul (4.8-10.8)
[2018-02-25 06:36] LABS: BASOPHIL # 0.1 10^3/ul (0.0-0.1); BASOPHILS % 0.5 % (0.0-2.0); EOSINOPHILS # 0.3 10^3/ul (0.0-0.5); EOSINOPHILS % 2.8 % (0.0-7.0); HEMATOCRIT 34.7 % (42.0-52.0); HEMOGLOBIN 11.1 g/dl (14.0-18.0); LYMPHOCYTES # 0.8 10^3/ul (0.8-2.9); LYMPHOCYTES % 8.4 % (15.0-51.0); MEAN CORPUSCULAR HEMOGLOBIN 29.3 pg (29.0-33.0); MEAN CORPUSCULAR VOLUME 91.6 fl (82.0-101.0); MEAN PLATELET VOLUME 11.2 fl (7.4-10.4); MONOCYTE # 0.7 10^3/ul (0.3-0.9); MONOCYTES % 7.8 % (0.0-11.0); NEUTROPHIL # 7.5 10^3/ul (1.6-7.5); NEUTROPHILS % 80.3 % (39.0-77.0); PLATELET COUNT 341 10^3/UL (140-415); RED BLOOD COUNT 3.79 10^6/ul (4.70-6.10); RED CELL DISTRIBUTION WIDTH 15.3 % (11.5-14.5)
[2018-02-25 07:12] LABS: ANION GAP 9 (5-13); BLOOD UREA NITROGEN 27 mg/dl (7-20); CALCIUM 9.1 mg/dl (8.4-10.2); CARBON DIOXIDE 28 mmol/L (21-31); CHLORIDE 103 mmol/L (97-110); Estimated GFR > 60 mL/min (>60); GLUCOSE 110 mg/dl (70-220); POTASSIUM 4.7 mmol/L (3.5-5.1); SODIUM 140 mmol/L (135-144)
[2018-02-25] MEDS: LANSOPRAZOLE 30 MG CAP GTB (08:46)
[2018-02-25] MEDS: RIFAXIMIN 200 MG TAB GTB ×3 (08:46→21:16)
[2018-02-25] MEDS: FLUCONAZOLE 100 MG TAB PO (08:46)
[2018-02-25] MEDS: ESCITALOPRAM 10 MG TAB GTB (09:06)
[2018-02-26 05:45] LABS: ADD MAN DIFF? NO
[2018-02-26 05:57] LABS: WHITE BLOOD COUNT 8.2 10^3/ul (4.8-10.8)
[2018-02-26 05:57] LABS: BASOPHIL # 0.1 10^3/ul (0.0-0.1); EOSINOPHILS # 0.3 10^3/ul (0.0-0.5); EOSINOPHILS % 3.4 % (0.0-7.0); HEMATOCRIT 34.3 % (42.0-52.0); HEMOGLOBIN 10.8 g/dl (14.0-18.0); LYMPHOCYTES # 1.3 10^3/ul (0.8-2.9); LYMPHOCYTES % 15.3 % (15.0-51.0); MEAN CORPUSCULAR HGB CONC 31.5 g/dl (32.0-37.0); MONOCYTE # 0.8 10^3/ul (0.3-0.9); MONOCYTES % 9.4 % (0.0-11.0); NEUTROPHIL # 5.8 10^3/ul (1.6-7.5); NEUTROPHILS % 70.5 % (39.0-77.0); PLATELET COUNT 308 10^3/UL (140-415); RED BLOOD COUNT 3.73 10^6/ul (4.70-6.10); RED CELL DISTRIBUTION WIDTH 15.6 % (11.5-14.5)
[2018-02-26] MEDS: VANCOMYCIN HCL 250 MG/5ML POSYG PO ×4 (05:57→23:58)
[2018-02-26] MEDS: MEROPENEM 1 GM/50ML(PMX) 50 ML IVPB ×3 (05:57→21:36)
[2018-02-26 06:12] LABS: ANION GAP 7 (5-13); BLOOD UREA NITROGEN 33 mg/dl (7-20); CALCIUM 9.1 mg/dl (8.4-10.2); CARBON DIOXIDE 28 mmol/L (21-31); CHLORIDE 105 mmol/L (97-110); CREATININE 0.68 mg/dl (0.61-1.24); Estimated GFR > 60 mL/min (>60); GLUCOSE 103 mg/dl (70-220); POTASSIUM 4.9 mmol/L (3.5-5.1); SODIUM 140 mmol/L (135-144)
[2018-02-26] MEDS: ESCITALOPRAM 10 MG TAB GTB (08:26)
[2018-02-26] MEDS: LANSOPRAZOLE 30 MG CAP GTB (08:26)
[2018-02-26] MEDS: RIFAXIMIN 200 MG TAB GTB ×3 (08:26→21:36)
[2018-02-26] MEDS: FLUCONAZOLE 100 MG TAB PO (08:26)
[2018-02-27 06:06] LABS: ADD MAN DIFF? NO
[2018-02-27 06:12] LABS: WHITE BLOOD COUNT 8.6 10^3/ul (4.8-10.8)
[2018-02-27 06:12] LABS: BASOPHIL # 0.1 10^3/ul (0.0-0.1); BASOPHILS % 1.1 % (0.0-2.0); EOSINOPHILS # 0.1 10^3/ul (0.0-0.5); EOSINOPHILS % 1.5 % (0.0-7.0); HEMATOCRIT 36.6 % (42.0-52.0); HEMOGLOBIN 11.5 g/dl (14.0-18.0); LYMPHOCYTES # 1.3 10^3/ul (0.8-2.9); LYMPHOCYTES % 14.6 % (15.0-51.0); MEAN CORPUSCULAR HEMOGLOBIN 28.6 pg (29.0-33.0); MEAN CORPUSCULAR HGB CONC 31.4 g/dl (32.0-37.0); MEAN PLATELET VOLUME 11.1 fl (7.4-10.4); MONOCYTE # 0.9 10^3/ul (0.3-0.9); MONOCYTES % 10.2 % (0.0-11.0); NEUTROPHIL # 6.2 10^3/ul (1.6-7.5); PLATELET COUNT 326 10^3/UL (140-415); RED BLOOD COUNT 4.02 10^6/ul (4.70-6.10); RED CELL DISTRIBUTION WIDTH 15.8 % (11.5-14.5)
[2018-02-27] MEDS: MEROPENEM 1 GM/50ML(PMX) 50 ML IVPB ×3 (06:26→22:21)
[2018-02-27] MEDS: VANCOMYCIN HCL 250 MG/5ML POSYG PO ×3 (06:26→17:54)
[2018-02-27 06:51] LABS: ANION GAP 10 (5-13); BLOOD UREA NITROGEN 38 mg/dl (7-20); CALCIUM 9.4 mg/dl (8.4-10.2); CARBON DIOXIDE 29 mmol/L (21-31); CHLORIDE 104 mmol/L (97-110); Estimated GFR > 60 mL/min (>60); GLUCOSE 110 mg/dl (70-220); POTASSIUM 4.7 mmol/L (3.5-5.1); SODIUM 143 mmol/L (135-144)
[2018-02-27] MEDS: RIFAXIMIN 200 MG TAB GTB ×3 (09:31→22:21)
[2018-02-27] MEDS: LANSOPRAZOLE 30 MG CAP GTB (09:31)
[2018-02-27] MEDS: ESCITALOPRAM 10 MG TAB GTB (09:31)
[2018-02-27] MEDS: FLUCONAZOLE 100 MG TAB PO (09:31)
[2018-02-27] MEDS: ACETAMINOPHEN 325 MG TAB PO (12:29)
[2018-02-27] MEDS ORDERED: VANCOMYCIN IV PER PHARMACY XX (15:30)
[2018-02-27] MEDS: VANCOMYCIN 1.25 GM in SOD CHLORIDE 0.9% 250 ML IVPB (17:55)
[2018-02-28] MEDS: VANCOMYCIN HCL 250 MG/5ML POSYG PO ×5 (00:08→23:53)
[2018-02-28] MEDS: ACETAMINOPHEN 325 MG TAB PO ×2 (00:09→23:53)
[2018-02-28] MEDS: MEROPENEM 1 GM/50ML(PMX) 50 ML IVPB ×3 (05:38→21:57)
[2018-02-28] MEDS: VANCOMYCIN 500MG/NS (PMX) 100 ML IVPB ×2 (05:38→17:24)
[2018-02-28 05:59] LABS: ADD MAN DIFF? NO
[2018-02-28 06:02] LABS: BASOPHIL # 0.1 10^3/ul (0.0-0.1); BASOPHILS % 1.1 % (0.0-2.0); EOSINOPHILS # 0.1 10^3/ul (0.0-0.5); EOSINOPHILS % 0.5 % (0.0-7.0); HEMOGLOBIN 11.5 g/dl (14.0-18.0); LYMPHOCYTES # 1.3 10^3/ul (0.8-2.9); LYMPHOCYTES % 13.5 % (15.0-51.0); MEAN CORPUSCULAR HEMOGLOBIN 28.5 pg (29.0-33.0); MEAN CORPUSCULAR HGB CONC 31.1 g/dl (32.0-37.0); MEAN CORPUSCULAR VOLUME 91.8 fl (82.0-101.0); MONOCYTES % 10.5 % (0.0-11.0); NEUTROPHIL # 7.2 10^3/ul (1.6-7.5); NEUTROPHILS % 74.1 % (39.0-77.0); PLATELET COUNT 286 10^3/UL (140-415); RED BLOOD COUNT 4.03 10^6/ul (4.70-6.10); RED CELL DISTRIBUTION WIDTH 15.8 % (11.5-14.5)
[2018-02-28 06:02] LABS: WHITE BLOOD COUNT 9.7 10^3/ul (4.8-10.8)
[2018-02-28 06:29] LABS: ANION GAP 9 (5-13); BLOOD UREA NITROGEN 37 mg/dl (7-20); CALCIUM 8.8 mg/dl (8.4-10.2); CARBON DIOXIDE 27 mmol/L (21-31); CHLORIDE 108 mmol/L (97-110); CREATININE 0.79 mg/dl (0.61-1.24); Estimated GFR > 60 mL/min (>60); GLUCOSE 126 mg/dl (70-220); POTASSIUM 4.4 mmol/L (3.5-5.1); SODIUM 144 mmol/L (135-144)
[2018-02-28] MEDS: RIFAXIMIN 200 MG TAB GTB ×3 (08:44→21:57)
[2018-02-28] MEDS: LANSOPRAZOLE 30 MG CAP GTB (08:44)
[2018-02-28] MEDS: FLUCONAZOLE 100 MG TAB PO (08:44)
[2018-02-28] MEDS: ESCITALOPRAM 10 MG TAB GTB (08:44)
[2018-03-01] MEDS: IBUPROFEN 600 MG TAB GTB (03:33)
[2018-03-01] MEDS: VANCOMYCIN HCL 250 MG/5ML POSYG PO ×4 (05:03→23:38)
[2018-03-01] MEDS: ACETAMINOPHEN 325 MG TAB PO ×2 (05:03→14:09)
[2018-03-01] MEDS: MEROPENEM 1 GM/50ML(PMX) 50 ML IVPB ×3 (05:04→21:40)
[2018-03-01 05:12] LABS: ADD MAN DIFF? NO
[2018-03-01 05:17] LABS: WHITE BLOOD COUNT 8.5 10^3/ul (4.8-10.8)
[2018-03-01 05:17] LABS: BASOPHIL # 0.1 10^3/ul (0.0-0.1); BASOPHILS % 1.1 % (0.0-2.0); EOSINOPHILS # 0.1 10^3/ul (0.0-0.5); EOSINOPHILS % 1.3 % (0.0-7.0); HEMATOCRIT 35.2 % (42.0-52.0); HEMOGLOBIN 11.1 g/dl (14.0-18.0); LYMPHOCYTES # 1.6 10^3/ul (0.8-2.9); MEAN CORPUSCULAR HEMOGLOBIN 28.9 pg (29.0-33.0); MEAN CORPUSCULAR HGB CONC 31.5 g/dl (32.0-37.0); MEAN CORPUSCULAR VOLUME 91.7 fl (82.0-101.0); MEAN PLATELET VOLUME 10.7 fl (7.4-10.4); MONOCYTES % 11.5 % (0.0-11.0); NEUTROPHIL # 5.7 10^3/ul (1.6-7.5); NEUTROPHILS % 66.6 % (39.0-77.0); PLATELET COUNT 273 10^3/UL (140-415); RED BLOOD COUNT 3.84 10^6/ul (4.70-6.10); RED CELL DISTRIBUTION WIDTH 15.6 % (11.5-14.5)
[2018-03-01 05:33] LABS: VANCOMYCIN,TROUGH 15.2 ug/ml (10.0-20.0)
[2018-03-01 05:34] LABS: ANION GAP 8 (5-13); BLOOD UREA NITROGEN 40 mg/dl (7-20); CALCIUM 8.7 mg/dl (8.4-10.2); CARBON DIOXIDE 28 mmol/L (21-31); CHLORIDE 106 mmol/L (97-110); CREATININE 0.93 mg/dl (0.61-1.24); Estimated GFR > 60 mL/min (>60); GLUCOSE 118 mg/dl (70-220); POTASSIUM 4.4 mmol/L (3.5-5.1); SODIUM 142 mmol/L (135-144)
[2018-03-01] MEDS: VANCOMYCIN 500MG/NS (PMX) 100 ML IVPB ×2 (05:59→18:41)
[2018-03-01] MEDS: LANSOPRAZOLE 30 MG CAP GTB (09:21)
[2018-03-01] MEDS: ESCITALOPRAM 10 MG TAB GTB (09:21)
[2018-03-01] MEDS: RIFAXIMIN 200 MG TAB GTB ×3 (09:21→21:40)
[2018-03-01] MEDS: FLUCONAZOLE 100 MG TAB PO (09:21)
[2018-03-01] MEDS: IOHEXOL 14.3 MG(I)/ML (ADULT) BTL PO (16:00)
[2018-03-02] MEDS: MEROPENEM 1 GM/50ML(PMX) 50 ML IVPB ×3 (05:43→21:15)
[2018-03-02] MEDS: VANCOMYCIN 500MG/NS (PMX) 100 ML IVPB ×2 (05:43→17:57)
[2018-03-02] MEDS: VANCOMYCIN HCL 250 MG/5ML POSYG PO ×3 (05:43→17:57)
[2018-03-02 05:57] LABS: ADD MAN DIFF? NO
[2018-03-02 06:02] LABS: WHITE BLOOD COUNT 9.2 10^3/ul (4.8-10.8)
[2018-03-02 06:02] LABS: BASOPHIL # 0.1 10^3/ul (0.0-0.1); BASOPHILS % 0.8 % (0.0-2.0); EOSINOPHILS # 0.3 10^3/ul (0.0-0.5); EOSINOPHILS % 3.5 % (0.0-7.0); HEMATOCRIT 37.3 % (42.0-52.0); HEMOGLOBIN 11.5 g/dl (14.0-18.0); LYMPHOCYTES # 1.1 10^3/ul (0.8-2.9); LYMPHOCYTES % 12.1 % (15.0-51.0); MEAN CORPUSCULAR HEMOGLOBIN 28.4 pg (29.0-33.0); MEAN CORPUSCULAR HGB CONC 30.8 g/dl (32.0-37.0); MEAN CORPUSCULAR VOLUME 92.1 fl (82.0-101.0); MEAN PLATELET VOLUME 10.7 fl (7.4-10.4); MONOCYTE # 0.8 10^3/ul (0.3-0.9); MONOCYTES % 8.8 % (0.0-11.0); NEUTROPHIL # 6.9 10^3/ul (1.6-7.5); NEUTROPHILS % 74.5 % (39.0-77.0); PLATELET COUNT 258 10^3/UL (140-415); RED BLOOD COUNT 4.05 10^6/ul (4.70-6.10); RED CELL DISTRIBUTION WIDTH 15.2 % (11.5-14.5)
[2018-03-02 06:31] LABS: ANION GAP 10 (5-13); BLOOD UREA NITROGEN 41 mg/dl (7-20); CALCIUM 9.2 mg/dl (8.4-10.2); CARBON DIOXIDE 26 mmol/L (21-31); CHLORIDE 108 mmol/L (97-110); CREATININE 0.69 mg/dl (0.61-1.24); Estimated GFR > 60 mL/min (>60); GLUCOSE 107 mg/dl (70-220); POTASSIUM 4.5 mmol/L (3.5-5.1); SODIUM 144 mmol/L (135-144)
[2018-03-02] MEDS: ACETAMINOPHEN 325 MG TAB PO (08:27)
[2018-03-02] MEDS: LANSOPRAZOLE 30 MG CAP GTB (09:55)
[2018-03-02] MEDS: FLUCONAZOLE 100 MG TAB PO (09:55)
[2018-03-02] MEDS: RIFAXIMIN 200 MG TAB GTB ×3 (09:55→21:15)
[2018-03-02] MEDS: IBUPROFEN 600 MG TAB GTB (09:55)
[2018-03-02] MEDS: ESCITALOPRAM 10 MG TAB GTB (09:56)
[2018-03-03] MEDS: VANCOMYCIN HCL 250 MG/5ML POSYG PO ×4 (00:19→17:26)
[2018-03-03] MEDS: MEROPENEM 1 GM/50ML(PMX) 50 ML IVPB ×3 (05:46→21:29)
[2018-03-03] MEDS: VANCOMYCIN 500MG/NS (PMX) 100 ML IVPB ×2 (06:26→17:26)
[2018-03-03] MEDS ORDERED: VITAMIN A & D 5 GM OINT PACKET TOP (08:10)
[2018-03-03] MEDS: FLUCONAZOLE 100 MG TAB PO (08:17)
[2018-03-03] MEDS: ESCITALOPRAM 10 MG TAB GTB (08:17)
[2018-03-03] MEDS: RIFAXIMIN 200 MG TAB GTB ×3 (08:17→21:28)
[2018-03-03] MEDS: LANSOPRAZOLE 30 MG CAP GTB (08:18)
[2018-03-03] MEDS: IBUPROFEN 600 MG TAB GTB (08:18)
[2018-03-03] MEDS: SOD CHLORIDE 0.9% 1,000 ML IV (14:34)
[2018-03-04] MEDS: VANCOMYCIN HCL 250 MG/5ML POSYG PO ×5 (00:13→23:41)
[2018-03-04] MEDS: MEROPENEM 1 GM/50ML(PMX) 50 ML IVPB ×3 (05:29→21:31)
[2018-03-04 06:33] LABS: VANCOMYCIN,TROUGH 13.4 ug/ml (10.0-20.0)
[2018-03-04] MEDS: VANCOMYCIN 500MG/NS (PMX) 100 ML IVPB ×2 (06:43→17:20)
[2018-03-04] MEDS: LANSOPRAZOLE 30 MG CAP GTB (08:56)
[2018-03-04] MEDS: IBUPROFEN 600 MG TAB GTB (08:56)
[2018-03-04] MEDS: ESCITALOPRAM 10 MG TAB GTB (08:56)
[2018-03-04] MEDS: FLUCONAZOLE 100 MG TAB PO (08:56)
[2018-03-04] MEDS: RIFAXIMIN 200 MG TAB GTB ×3 (08:56→21:27)
[2018-03-04] MEDS: SOD CHLORIDE 0.9% 1,000 ML IV (08:57)
[2018-03-04 13:24] LABS: ADD MAN DIFF? NO
[2018-03-04 13:25] LABS: BASOPHILS % 0.5 % (0.0-2.0); EOSINOPHILS # 0.4 10^3/ul (0.0-0.5); EOSINOPHILS % 4.6 % (0.0-7.0); HEMOGLOBIN 10.3 g/dl (14.0-18.0); LYMPHOCYTES # 1.8 10^3/ul (0.8-2.9); LYMPHOCYTES % 22.1 % (15.0-51.0); MEAN CORPUSCULAR HEMOGLOBIN 28.7 pg (29.0-33.0); MEAN CORPUSCULAR HGB CONC 31.2 g/dl (32.0-37.0); MEAN CORPUSCULAR VOLUME 91.9 fl (82.0-101.0); MEAN PLATELET VOLUME 10.4 fl (7.4-10.4); MONOCYTE # 0.7 10^3/ul (0.3-0.9); MONOCYTES % 8.2 % (0.0-11.0); NEUTROPHIL # 5.1 10^3/ul (1.6-7.5); NEUTROPHILS % 64.2 % (39.0-77.0); PLATELET COUNT 190 10^3/UL (140-415); RED BLOOD COUNT 3.59 10^6/ul (4.70-6.10); RED CELL DISTRIBUTION WIDTH 15.1 % (11.5-14.5)
[2018-03-04] MEDS: ACETAMINOPHEN 325 MG TAB PO ×2 (13:37→22:04)
[2018-03-04 13:42] LABS: ANION GAP 7 (5-13); BLOOD UREA NITROGEN 26 mg/dl (7-20); CALCIUM 8.7 mg/dl (8.4-10.2); CARBON DIOXIDE 28 mmol/L (21-31); CHLORIDE 107 mmol/L (97-110); CREATININE 0.69 mg/dl (0.61-1.24); Estimated GFR > 60 mL/min (>60); GLUCOSE 103 mg/dl (70-220); POTASSIUM 4.3 mmol/L (3.5-5.1); SODIUM 142 mmol/L (135-144)
[2018-03-04 14:26] LABS: PROCALCITONIN <0.10 ng/mL (<0.10)
[2018-03-05 05:33] LABS: ADD MAN DIFF? NO; BASOPHIL # 0.1 10^3/ul (0.0-0.1); BASOPHILS % 0.7 % (0.0-2.0); EOSINOPHILS # 0.5 10^3/ul (0.0-0.5); EOSINOPHILS % 6.2 % (0.0-7.0); HEMATOCRIT 33.9 % (42.0-52.0); HEMOGLOBIN 10.7 g/dl (14.0-18.0); LYMPHOCYTES % 13.8 % (15.0-51.0); MEAN CORPUSCULAR HEMOGLOBIN 29.1 pg (29.0-33.0); MEAN CORPUSCULAR HGB CONC 31.6 g/dl (32.0-37.0); MEAN CORPUSCULAR VOLUME 92.1 fl (82.0-101.0); MEAN PLATELET VOLUME 10.8 fl (7.4-10.4); MONOCYTE # 0.5 10^3/ul (0.3-0.9); MONOCYTES % 6.8 % (0.0-11.0); NEUTROPHIL # 5.4 10^3/ul (1.6-7.5); NEUTROPHILS % 72.1 % (39.0-77.0); PLATELET COUNT 194 10^3/UL (140-415); RED BLOOD COUNT 3.68 10^6/ul (4.70-6.10); RED CELL DISTRIBUTION WIDTH 15.1 % (11.5-14.5)
[2018-03-05 05:33] LABS: WHITE BLOOD COUNT 7.5 10^3/ul (4.8-10.8)
[2018-03-05] MEDS: MEROPENEM 1 GM/50ML(PMX) 50 ML IVPB (05:34)
[2018-03-05] MEDS: SOD CHLORIDE 0.9% 1,000 ML IV (05:34)
[2018-03-05] MEDS: VANCOMYCIN HCL 250 MG/5ML POSYG PO ×3 (05:34→17:48)
[2018-03-05 05:56] LABS: ANION GAP 7 (5-13); BLOOD UREA NITROGEN 23 mg/dl (7-20); CARBON DIOXIDE 28 mmol/L (21-31); CHLORIDE 108 mmol/L (97-110); CREATININE 0.47 mg/dl (0.61-1.24); Estimated GFR > 60 mL/min (>60); GLUCOSE 99 mg/dl (70-220); POTASSIUM 4.2 mmol/L (3.5-5.1); SODIUM 143 mmol/L (135-144)
[2018-03-05] MEDS: VANCOMYCIN 500MG/NS (PMX) 100 ML IVPB (06:11)
[2018-03-05] MEDS: RIFAXIMIN 200 MG TAB GTB ×3 (09:04→21:56)
[2018-03-05] MEDS: FLUCONAZOLE 100 MG TAB PO (09:05)
[2018-03-05] MEDS: ESCITALOPRAM 10 MG TAB GTB (09:05)
[2018-03-05] MEDS: LANSOPRAZOLE 30 MG CAP GTB (09:05)
[2018-03-05] MEDS ORDERED: AMIKACIN IV PER PHARMACY XX (11:00)
[2018-03-05] MEDS: AMIKACIN 900 MG in SOD CHLORIDE 0.9% 250 ML IVPB (14:38)
[2018-03-05] MEDS: COLISTIMETHATE (25 MG/ML INHAL SYG) NEB (20:00)
[2018-03-06] MEDS: VANCOMYCIN HCL 250 MG/5ML POSYG PO ×3 (00:27→13:29)
[2018-03-06] MEDS: SOD CHLORIDE 0.9% 1,000 ML IV (02:35)
[2018-03-06 05:48] LABS: ADD MAN DIFF? NO
[2018-03-06 05:52] LABS: WHITE BLOOD COUNT 7.3 10^3/ul (4.8-10.8)
[2018-03-06 05:52] LABS: BASOPHILS % 0.4 % (0.0-2.0); EOSINOPHILS # 0.3 10^3/ul (0.0-0.5); EOSINOPHILS % 3.9 % (0.0-7.0); HEMATOCRIT 32.7 % (42.0-52.0); HEMOGLOBIN 10.2 g/dl (14.0-18.0); LYMPHOCYTES # 0.8 10^3/ul (0.8-2.9); LYMPHOCYTES % 11.2 % (15.0-51.0); MEAN CORPUSCULAR HEMOGLOBIN 28.9 pg (29.0-33.0); MEAN CORPUSCULAR HGB CONC 31.2 g/dl (32.0-37.0); MEAN CORPUSCULAR VOLUME 92.6 fl (82.0-101.0); MONOCYTE # 0.5 10^3/ul (0.3-0.9); MONOCYTES % 6.5 % (0.0-11.0); NEUTROPHIL # 5.6 10^3/ul (1.6-7.5); NEUTROPHILS % 77.6 % (39.0-77.0); PLATELET COUNT 212 10^3/UL (140-415); RED BLOOD COUNT 3.53 10^6/ul (4.70-6.10)
[2018-03-06 06:21] LABS: ANION GAP 8 (5-13); BLOOD UREA NITROGEN 20 mg/dl (7-20); CALCIUM 8.6 mg/dl (8.4-10.2); CARBON DIOXIDE 27 mmol/L (21-31); CHLORIDE 108 mmol/L (97-110); CREATININE 0.46 mg/dl (0.61-1.24); Estimated GFR > 60 mL/min (>60); GLUCOSE 112 mg/dl (70-220); POTASSIUM 4.2 mmol/L (3.5-5.1); SODIUM 143 mmol/L (135-144)
[2018-03-06] MEDS: COLISTIMETHATE (25 MG/ML INHAL SYG) NEB (08:54)
[2018-03-06] MEDS: LANSOPRAZOLE 30 MG CAP GTB (09:38)
[2018-03-06] MEDS: FLUCONAZOLE 100 MG TAB PO (09:38)
[2018-03-06] MEDS: RIFAXIMIN 200 MG TAB GTB ×2 (09:38→13:30)
[2018-03-06] MEDS: ESCITALOPRAM 10 MG TAB GTB (09:38)
[2018-03-07 12:28] LABS: PROCALCITONIN <0.10 ng/mL (<0.10)
== END 2018-03-06 17:00 | DRG 870 ==
LOC: E/R 06:21 → 6WM 09:21
PROC: 5A1955Z Respiratory Ventilation, Greater than 96 Consecutive Hours (ICD-10-PCS; principal; 2018-02-10)
DX: A41.9 Sepsis, unspecified organism (principal); J69.0 Pneumonitis due to inhalation of food and vomit; G82.50 Quadriplegia, unspecified; A04.72 Enterocolitis due to Clostridium difficile, not specified as recurrent; K56.7 Ileus, unspecified; K92.0 Hematemesis; J96.10 Chronic respiratory failure, unspecified whether with hypoxia or hypercapnia; E87.0 Hyperosmolality and hypernatremia; B37.49 Other urogenital candidiasis; B37.0 Candidal stomatitis; K56.609 Unspecified intestinal obstruction, unspecified as to partial versus complete obstruction; N39.0 Urinary tract infection, site not specified; Z99.11 Dependence on respirator [ventilator] status; N13.9 Obstructive and reflux uropathy, unspecified; I25.10 Atherosclerotic heart disease of native coronary artery without angina pectoris; I25.2 Old myocardial infarction; I10 Essential (primary) hypertension; J44.9 Chronic obstructive pulmonary disease, unspecified; K56.41 Fecal impaction; Z66 Do not resuscitate; Z93.1 Gastrostomy status; Z93.0 Tracheostomy status
CPT/HCPCS: 36415; 36600; 71045; 71250; 74018; 74176; 78806; 80048; 80053; 80150; 80202; 81001; 82270; 82803; 82962; 83605; 83690; 84145; 84443; 84484; 85025; 85610; 85730; 86850; 86900; 86901; 87040; 87045; 87070; 87075; 87081; 87086; 87177; 89220; 90686; 93005; 94002; 94003; 94664; 96374; 96375; 96376; 99285-25

== ENCOUNTER 2018-04-07 20:32 | Inpatient (IN) | payer OTHER, MEDICAID ==
[2018-04-07 21:17] LABS: ADD MAN DIFF? NO
[2018-04-07 21:19] LABS: BASOPHIL # 0.1 10^3/ul (0.0-0.1); BASOPHILS % 0.5 % (0.0-2.0); EOSINOPHILS % 0.2 % (0.0-7.0); HEMATOCRIT 36.7 % (42.0-52.0); HEMOGLOBIN 11.2 g/dl (14.0-18.0); MEAN CORPUSCULAR HEMOGLOBIN 28.8 pg (29.0-33.0); MEAN CORPUSCULAR HGB CONC 30.5 g/dl (32.0-37.0); MEAN CORPUSCULAR VOLUME 94.3 fl (82.0-101.0); MEAN PLATELET VOLUME 11.3 fl (7.4-10.4); MONOCYTE # 1.3 10^3/ul (0.3-0.9); MONOCYTES % 12.6 % (0.0-11.0); NEUTROPHIL # 7.9 10^3/ul (1.6-7.5); NEUTROPHILS % 76.4 % (39.0-77.0); PLATELET COUNT 232 10^3/UL (140-415); RED BLOOD COUNT 3.89 10^6/ul (4.70-6.10); RED CELL DISTRIBUTION WIDTH 15.1 % (11.5-14.5)
[2018-04-07 21:19] LABS: WHITE BLOOD COUNT 10.4 10^3/ul (4.8-10.8)
[2018-04-07 21:21] LABS: ADD UMIC YES; UR ASCORBIC ACID 40 mg/dL (NEGATIVE); UR BACTERIA FEW /HPF (NONE SEEN); UR BILIRUBIN (Dip) NEGATIVE (NEGATIVE); UR BLOOD (Dip) NEGATIVE (NEGATIVE); UR BUDDING YEAST MANY /HPF (NONE SEEN); UR CLARITY CLOUDY (CLEAR); UR COLOR YELLOW (YELLOW); UR GLUCOSE (Dip) 1+ mg/dL (NEGATIVE); UR KETONES (Dip) NEGATIVE (NEGATIVE); UR LEUKOCYTE ESTERASE (Dip) 3+ Leu/ul (NEGATIVE); UR NITRITE (Dip) NEGATIVE (NEGATIVE); UR RBC 22 /HPF (0-5); UR SPECIFIC GRAVITY (Dip) 1.017 (1.003-1.030); UR TOTAL PROTEIN (Dip) 2+ mg/dl (NEGATIVE); UR UROBILINOGEN (Dip) NEGATIVE (NEGATIVE); UR WBC > 182 /HPF (0-5)
[2018-04-07] MEDS: CEFEPIME 1GM/50 ML (PMX) 50 ML IVPB (21:21)
[2018-04-07] MEDS: ACETAMINOPHEN 650 MG SUPP PR (21:21)
[2018-04-07] MEDS: SODIUM CHLORIDE 0.9% 1L BAG IV* (21:21)
[2018-04-07 21:23] LABS: INR 1.04; PARTIAL THROMBOPLASTIN TIME 25.6 Sec (23.0-35.0); PROTIME 13.7 Sec (11.9-14.9); PT RATIO 1.1
[2018-04-07 21:25] LABS: ALANINE AMINOTRANSFERASE 40 IU/L (13-69); ALBUMIN/GLOBULIN RATIO 1.08; ALKALINE PHOSPHATASE 167 IU/L (42-121); ANION GAP 9 (5-13); ASPARTATE AMINO TRANSFERASE 25 IU/L (15-46); BILIRUBIN,INDIRECT 0.3 mg/dl (0-1.1); BILIRUBIN,TOTAL 0.3 mg/dl (0.2-1.3); BLOOD UREA NITROGEN 49 mg/dl (7-20); CALCIUM 9.5 mg/dl (8.4-10.2); CARBON DIOXIDE 30 mmol/L (21-31); CHLORIDE 106 mmol/L (97-110); CREATININE 0.75 mg/dl (0.61-1.24); Estimated GFR > 60 mL/min (>60); GLUCOSE 99 mg/dl (70-220); LIPASE 304 U/L (23-300); SODIUM 145 mmol/L (135-144); TOTAL PROTEIN 7.7 g/dl (6.1-8.1)
[2018-04-07] MEDS: ACETAMINOPHEN 325 MG TAB GTB (21:35)
[2018-04-07 21:36] LABS: TROPONIN-I 0.027 ng/ml (0.000-0.120)
[2018-04-07 22:47] LABS: LACTIC ACID 0.8 mmol/L (0.5-2.0)
[2018-04-08] MEDS ORDERED: ALBUTEROL/IPRATROPIUM (NEB) 3 ML AMP HHN
[2018-04-08 00:28] LABS: LACTIC ACID 0.9 mmol/L (0.5-2.0)
[2018-04-08] MEDS: DEXTROSE 5% 1,000 ML IV ×3 (02:12→21:45)
[2018-04-08] MEDS: BISACODYL 10 MG SUPP PR (02:17)
[2018-04-08 05:15] LABS: ADD MAN DIFF? NO
[2018-04-08 05:23] LABS: BASOPHIL # 0.1 10^3/ul (0.0-0.1); BASOPHILS % 0.7 % (0.0-2.0); EOSINOPHILS % 0.4 % (0.0-7.0); HEMATOCRIT 29.6 % (42.0-52.0); HEMOGLOBIN 9.1 g/dl (14.0-18.0); LYMPHOCYTES # 1.4 10^3/ul (0.8-2.9); LYMPHOCYTES % 15.9 % (15.0-51.0); MEAN CORPUSCULAR HEMOGLOBIN 28.9 pg (29.0-33.0); MEAN CORPUSCULAR HGB CONC 30.7 g/dl (32.0-37.0); MEAN PLATELET VOLUME 11.1 fl (7.4-10.4); MONOCYTE # 0.9 10^3/ul (0.3-0.9); MONOCYTES % 10.2 % (0.0-11.0); NEUTROPHIL # 6.1 10^3/ul (1.6-7.5); NEUTROPHILS % 72.4 % (39.0-77.0); PLATELET COUNT 168 10^3/UL (140-415); RED BLOOD COUNT 3.15 10^6/ul (4.70-6.10); RED CELL DISTRIBUTION WIDTH 15.2 % (11.5-14.5)
[2018-04-08 05:23] LABS: WHITE BLOOD COUNT 8.5 10^3/ul (4.8-10.8)
[2018-04-08 06:09] LABS: LACTIC ACID 0.8 mmol/L (0.5-2.0)
[2018-04-08 06:11] LABS: ANION GAP 8 (5-13); BLOOD UREA NITROGEN 31 mg/dl (7-20); CALCIUM 8.6 mg/dl (8.4-10.2); CARBON DIOXIDE 24 mmol/L (21-31); CHLORIDE 112 mmol/L (97-110); CREATININE 0.61 mg/dl (0.61-1.24); Estimated GFR > 60 mL/min (>60); GLUCOSE 101 mg/dl (70-220); POTASSIUM 4.2 mmol/L (3.5-5.1); SODIUM 144 mmol/L (135-144)
[2018-04-08] MEDS: FERROUS SULFATE 60 MG/ML 5ML CUP GTB ×2 (09:00→21:30)
[2018-04-08] MEDS: DOCUSATE SODIUM 10 MG/ML (10ML CUP) GTB ×2 (09:00→21:30)
[2018-04-08] MEDS ORDERED: MULTIVITAMINS THERAPEUTIC TAB GTB (09:00)
[2018-04-08] MEDS ORDERED: PANTOPRAZOLE (EC) 40 MG TAB PO (09:00)
[2018-04-08] MEDS ORDERED: DOCUSATE SODIUM 100 MG CAP PO (09:00)
[2018-04-08] MEDS: MIDODRINE 5 MG TAB GTB ×3 (09:01→21:31)
[2018-04-08] MEDS: LANSOPRAZOLE 30 MG CAP GTB (09:01)
[2018-04-08] MEDS: MULTIVITAMINS 30 ML CUP GTB (09:01)
[2018-04-08] MEDS: ESCITALOPRAM 10 MG TAB GTB (09:02)
[2018-04-08] MEDS: ACETAMINOPHEN 325 MG TAB GTB (09:03)
[2018-04-08] MEDS: ENOXAPARIN 30 MG/0.3 ML SYG SC (09:10)
[2018-04-08] MEDS: IPRATROPIUM (HFA) 12.9 GM INHALER INH ×4 (10:35→20:00)
[2018-04-08] MEDS: ALBUTEROL HFA 8 GM INHALER INH ×4 (10:35→20:00)
[2018-04-08] MEDS: CEFEPIME 1GM/50 ML (PMX) 50 ML IVPB ×2 (11:09→21:30)
[2018-04-09] MEDS: BISACODYL 10 MG SUPP PR (00:40)
[2018-04-09] MEDS: IPRATROPIUM (HFA) 12.9 GM INHALER INH ×6 (02:21→19:42)
[2018-04-09] MEDS: ALBUTEROL HFA 8 GM INHALER INH ×5 (02:22→19:42)
[2018-04-09 05:51] LABS: AADO2 Arterial 91.3 mmHg (7.0-24.0); Allen Test ACCEPTAB; Arterial Base Excess -0.7 mmol/L (-3.0-3); Arterial Blood Gas Oxygen Sat 97.6 mmHG (95.0-98.0); Arterial COHb 0.3 % (0.0-3.0); Arterial Fraction of Oxyhgb 97.3 % (93.0-99.0); Arterial HCO3 24.8 mmol/L (22.0-26.0); Arterial MetHb 0 % (0.0-1.5); Arterial pCO2 43.9 mmhg (35-45); MODE VENT - AC; Site Right Radial
[2018-04-09 07:14] LABS: ADD MAN DIFF? NO
[2018-04-09 07:21] LABS: BASOPHIL # 0.1 10^3/ul (0.0-0.1); BASOPHILS % 0.7 % (0.0-2.0); EOSINOPHILS # 0.1 10^3/ul (0.0-0.5); EOSINOPHILS % 1.9 % (0.0-7.0); HEMATOCRIT 33.8 % (42.0-52.0); HEMOGLOBIN 10.6 g/dl (14.0-18.0); LYMPHOCYTES # 1.3 10^3/ul (0.8-2.9); LYMPHOCYTES % 18.6 % (15.0-51.0); MEAN CORPUSCULAR HEMOGLOBIN 28.6 pg (29.0-33.0); MEAN CORPUSCULAR HGB CONC 31.4 g/dl (32.0-37.0); MEAN CORPUSCULAR VOLUME 91.4 fl (82.0-101.0); MEAN PLATELET VOLUME 10.9 fl (7.4-10.4); MONOCYTE # 0.6 10^3/ul (0.3-0.9); MONOCYTES % 8.9 % (0.0-11.0); NEUTROPHIL # 4.8 10^3/ul (1.6-7.5); NEUTROPHILS % 69.5 % (39.0-77.0); PLATELET COUNT 181 10^3/UL (140-415); RED CELL DISTRIBUTION WIDTH 14.8 % (11.5-14.5)
[2018-04-09 07:21] LABS: WHITE BLOOD COUNT 6.9 10^3/ul (4.8-10.8)
[2018-04-09 07:40] LABS: ANION GAP 8 (5-13); BLOOD UREA NITROGEN 21 mg/dl (7-20); CALCIUM 9.2 mg/dl (8.4-10.2); CARBON DIOXIDE 27 mmol/L (21-31); CHLORIDE 106 mmol/L (97-110); CREATININE 0.54 mg/dl (0.61-1.24); Estimated GFR > 60 mL/min (>60); GLUCOSE 132 mg/dl (70-220); POTASSIUM 3.9 mmol/L (3.5-5.1); SODIUM 141 mmol/L (135-144)
[2018-04-09 07:44] LABS: LACTIC ACID 0.9 mmol/L (0.5-2.0)
[2018-04-09] MEDS: FERROUS SULFATE 60 MG/ML 5ML CUP GTB ×2 (08:49→21:06)
[2018-04-09] MEDS: DOCUSATE SODIUM 10 MG/ML (10ML CUP) GTB ×2 (08:49→21:06)
[2018-04-09] MEDS: LANSOPRAZOLE 30 MG CAP GTB (08:49)
[2018-04-09] MEDS: FLUCONAZOLE 200 MG TAB GTB (08:49)
[2018-04-09] MEDS: ESCITALOPRAM 10 MG TAB GTB (08:49)
[2018-04-09] MEDS: CEFEPIME 1GM/50 ML (PMX) 50 ML IVPB ×2 (08:50→21:06)
[2018-04-09] MEDS: ENOXAPARIN 30 MG/0.3 ML SYG SC (09:04)
[2018-04-09] MEDS: MIDODRINE 5 MG TAB GTB ×2 (09:06→13:00)
[2018-04-09] MEDS: MULTIVITAMINS 30 ML CUP GTB (13:28)
[2018-04-09] MEDS: DEXTROSE 5% 1,000 ML IV (14:39)
[2018-04-09] MEDS ORDERED: VANCOMYCIN IV PER PHARMACY XX (15:00)
[2018-04-09] MEDS: VANCOMYCIN 1.25 GM in SOD CHLORIDE 0.9% 250 ML IVPB (17:16)
[2018-04-10] MEDS: BISACODYL 10 MG SUPP PR ×2 (00:15→23:57)
[2018-04-10] MEDS: ALBUTEROL HFA 8 GM INHALER INH ×4 (01:14→19:28)
[2018-04-10] MEDS: IPRATROPIUM (HFA) 12.9 GM INHALER INH ×4 (01:14→19:27)
[2018-04-10] MEDS: VANCOMYCIN 500 MG (PMX) 100 ML IVPB ×2 (04:17→17:13)
[2018-04-10] MEDS ORDERED: VANCOMYCIN 750 MG in SOD CHLORIDE 0.9% 150 ML IVPB (05:00)
[2018-04-10 07:21] LABS: ADD MAN DIFF? NO
[2018-04-10 07:29] LABS: WHITE BLOOD COUNT 7.8 10^3/ul (4.8-10.8)
[2018-04-10 07:29] LABS: BASOPHILS % 0.4 % (0.0-2.0); EOSINOPHILS # 0.2 10^3/ul (0.0-0.5); EOSINOPHILS % 2.7 % (0.0-7.0); HEMOGLOBIN 10.9 g/dl (14.0-18.0); LYMPHOCYTES # 0.9 10^3/ul (0.8-2.9); LYMPHOCYTES % 11.7 % (15.0-51.0); MEAN CORPUSCULAR HEMOGLOBIN 28.6 pg (29.0-33.0); MEAN CORPUSCULAR HGB CONC 32.1 g/dl (32.0-37.0); MEAN CORPUSCULAR VOLUME 89.2 fl (82.0-101.0); MEAN PLATELET VOLUME 10.8 fl (7.4-10.4); MONOCYTE # 0.6 10^3/ul (0.3-0.9); MONOCYTES % 7.2 % (0.0-11.0); NEUTROPHILS % 77.6 % (39.0-77.0); PLATELET COUNT 176 10^3/UL (140-415); RED BLOOD COUNT 3.81 10^6/ul (4.70-6.10); RED CELL DISTRIBUTION WIDTH 14.5 % (11.5-14.5)
[2018-04-10 07:58] LABS: ANION GAP 9 (5-13); BLOOD UREA NITROGEN 15 mg/dl (7-20); CALCIUM 8.9 mg/dl (8.4-10.2); CARBON DIOXIDE 29 mmol/L (21-31); CHLORIDE 105 mmol/L (97-110); CREATININE 0.47 mg/dl (0.61-1.24); Estimated GFR > 60 mL/min (>60); GLUCOSE 138 mg/dl (70-220); POTASSIUM 4.1 mmol/L (3.5-5.1); SODIUM 143 mmol/L (135-144)
[2018-04-10] MEDS: DOCUSATE SODIUM 10 MG/ML (10ML CUP) GTB ×2 (08:46→21:59)
[2018-04-10] MEDS: FLUCONAZOLE 200 MG TAB GTB (08:47)
[2018-04-10] MEDS: MULTIVITAMINS 30 ML CUP GTB (08:47)
[2018-04-10] MEDS: ESCITALOPRAM 10 MG TAB GTB (08:47)
[2018-04-10] MEDS: morphine LIQ (10 MG/5 ML) CUP GTB (08:47)
[2018-04-10] MEDS: FERROUS SULFATE 60 MG/ML 5ML CUP GTB ×2 (08:47→21:59)
[2018-04-10] MEDS: CEFEPIME 1GM/50 ML (PMX) 50 ML IVPB ×2 (08:48→21:59)
[2018-04-10] MEDS: LANSOPRAZOLE 30 MG CAP GTB (08:48)
[2018-04-10] MEDS: ENOXAPARIN 30 MG/0.3 ML SYG SC (08:57)
[2018-04-10] MEDS: DEXTROSE 5% 1,000 ML IV (13:08)
[2018-04-10] MEDS: VORICONAZOLE 200 MG TAB PO (21:59)
[2018-04-11] MEDS: IPRATROPIUM (HFA) 12.9 GM INHALER INH ×4 (01:16→19:26)
[2018-04-11] MEDS: ALBUTEROL HFA 8 GM INHALER INH ×4 (01:16→19:27)
[2018-04-11 04:33] LABS: ADD MAN DIFF? NO
[2018-04-11 04:36] LABS: WHITE BLOOD COUNT 5.8 10^3/ul (4.8-10.8)
[2018-04-11 04:36] LABS: BASOPHILS % 0.7 % (0.0-2.0); EOSINOPHILS # 0.4 10^3/ul (0.0-0.5); EOSINOPHILS % 6.4 % (0.0-7.0); HEMATOCRIT 31.3 % (42.0-52.0); HEMOGLOBIN 9.9 g/dl (14.0-18.0); LYMPHOCYTES # 1.2 10^3/ul (0.8-2.9); LYMPHOCYTES % 20.2 % (15.0-51.0); MEAN CORPUSCULAR HEMOGLOBIN 28.5 pg (29.0-33.0); MEAN CORPUSCULAR HGB CONC 31.6 g/dl (32.0-37.0); MEAN CORPUSCULAR VOLUME 90.2 fl (82.0-101.0); MEAN PLATELET VOLUME 11.1 fl (7.4-10.4); MONOCYTE # 0.5 10^3/ul (0.3-0.9); MONOCYTES % 8.8 % (0.0-11.0); NEUTROPHIL # 3.7 10^3/ul (1.6-7.5); NEUTROPHILS % 63.6 % (39.0-77.0); PLATELET COUNT 194 10^3/UL (140-415); RED BLOOD COUNT 3.47 10^6/ul (4.70-6.10); RED CELL DISTRIBUTION WIDTH 14.3 % (11.5-14.5)
[2018-04-11 04:58] LABS: ANION GAP 9 (5-13); BLOOD UREA NITROGEN 15 mg/dl (7-20); CALCIUM 9.1 mg/dl (8.4-10.2); CARBON DIOXIDE 29 mmol/L (21-31); CHLORIDE 103 mmol/L (97-110); CREATININE 0.54 mg/dl (0.61-1.24); Estimated GFR > 60 mL/min (>60); GLUCOSE 107 mg/dl (70-220); SODIUM 141 mmol/L (135-144)
[2018-04-11 05:09] LABS: VANCOMYCIN,TROUGH 7.7 ug/ml (10.0-20.0)
[2018-04-11] MEDS: VANCOMYCIN 750 MG in SOD CHLORIDE 0.9% 150 ML IVPB ×2 (05:58→17:24)
[2018-04-11] MEDS: LANSOPRAZOLE 30 MG CAP GTB (09:10)
[2018-04-11] MEDS: VORICONAZOLE 200 MG TAB PO ×2 (09:10→20:13)
[2018-04-11] MEDS: MULTIVITAMINS 30 ML CUP GTB (09:10)
[2018-04-11] MEDS: CEFEPIME 1GM/50 ML (PMX) 50 ML IVPB ×2 (09:10→20:12)
[2018-04-11] MEDS: FERROUS SULFATE 60 MG/ML 5ML CUP GTB ×2 (09:10→20:12)
[2018-04-11] MEDS: ESCITALOPRAM 10 MG TAB GTB (09:10)
[2018-04-11] MEDS: DOCUSATE SODIUM 10 MG/ML (10ML CUP) GTB ×2 (09:11→20:12)
[2018-04-11] MEDS: ENOXAPARIN 30 MG/0.3 ML SYG SC (09:42)
[2018-04-12] MEDS: BISACODYL 10 MG SUPP PR (01:00)
[2018-04-12] MEDS: IPRATROPIUM (HFA) 12.9 GM INHALER INH ×4 (01:00→19:12)
[2018-04-12] MEDS: ALBUTEROL HFA 8 GM INHALER INH ×4 (01:00→19:12)
[2018-04-12] MEDS: BALSAM PERU/CASTOR OIL 60 GM TUBE TOP ×2 (05:19→08:49)
[2018-04-12] MEDS: VANCOMYCIN 750 MG in SOD CHLORIDE 0.9% 150 ML IVPB ×2 (06:31→18:46)
[2018-04-12] MEDS: ACETAMINOPHEN 650MG/20.3ML CUP GTB (06:33)
[2018-04-12] MEDS: CEFEPIME 1GM/50 ML (PMX) 50 ML IVPB ×2 (08:45→20:53)
[2018-04-12] MEDS: FERROUS SULFATE 60 MG/ML 5ML CUP GTB ×2 (08:48→20:53)
[2018-04-12] MEDS: MULTIVITAMINS 30 ML CUP GTB (08:48)
[2018-04-12] MEDS: DOCUSATE SODIUM 10 MG/ML (10ML CUP) GTB ×2 (08:48→20:53)
[2018-04-12] MEDS: LANSOPRAZOLE 30 MG CAP GTB (08:48)
[2018-04-12] MEDS: VORICONAZOLE 200 MG TAB PO ×2 (08:48→20:53)
[2018-04-12] MEDS: ESCITALOPRAM 10 MG TAB GTB (08:48)
[2018-04-12] MEDS: ENOXAPARIN 30 MG/0.3 ML SYG SC (08:49)
[2018-04-12 18:02] LABS: CREATININE 0.56 mg/dl (0.61-1.24)
[2018-04-12 18:02] LABS: BLOOD UREA NITROGEN 18 mg/dl (7-20)
[2018-04-12 18:07] LABS: VANCOMYCIN,TROUGH 13.9 ug/ml (10.0-20.0)
[2018-04-13] MEDS: BISACODYL 10 MG SUPP PR
[2018-04-13] MEDS: ALBUTEROL HFA 8 GM INHALER INH ×4 (02:17→19:14)
[2018-04-13] MEDS: IPRATROPIUM (HFA) 12.9 GM INHALER INH ×4 (02:17→19:14)
[2018-04-13] MEDS: ACETAMINOPHEN 650MG/20.3ML CUP GTB ×2 (05:44→21:56)
[2018-04-13] MEDS: VANCOMYCIN 750 MG in SOD CHLORIDE 0.9% 150 ML IVPB ×2 (06:06→18:14)
[2018-04-13] MEDS: LANSOPRAZOLE 30 MG CAP GTB (08:28)
[2018-04-13] MEDS: MULTIVITAMINS 30 ML CUP GTB (08:28)
[2018-04-13] MEDS: ESCITALOPRAM 10 MG TAB GTB (08:28)
[2018-04-13] MEDS: FERROUS SULFATE 60 MG/ML 5ML CUP GTB ×2 (08:28→20:41)
[2018-04-13] MEDS: VORICONAZOLE 200 MG TAB PO ×2 (08:28→20:41)
[2018-04-13] MEDS: DOCUSATE SODIUM 10 MG/ML (10ML CUP) GTB ×2 (08:28→20:41)
[2018-04-13] MEDS: CEFEPIME 1GM/50 ML (PMX) 50 ML IVPB ×2 (08:29→20:40)
[2018-04-13] MEDS: ENOXAPARIN 30 MG/0.3 ML SYG SC (09:07)
[2018-04-13] MEDS: BALSAM PERU/CASTOR OIL 60 GM TUBE TOP (09:08)
[2018-04-13] MEDS: metroNIDAZOLE 500 MG TAB PO ×2 (15:05→20:41)
[2018-04-14] MEDS: BISACODYL 10 MG SUPP PR
[2018-04-14] MEDS: ALBUTEROL HFA 8 GM INHALER INH ×4 (01:29→19:16)
[2018-04-14] MEDS: IPRATROPIUM (HFA) 12.9 GM INHALER INH ×4 (01:29→19:16)
[2018-04-14] MEDS: VANCOMYCIN 750 MG in SOD CHLORIDE 0.9% 150 ML IVPB ×2 (05:27→19:05)
[2018-04-14] MEDS: metroNIDAZOLE 500 MG TAB PO ×3 (05:27→22:24)
[2018-04-14] MEDS: DOCUSATE SODIUM 10 MG/ML (10ML CUP) GTB ×2 (09:00→20:52)
[2018-04-14] MEDS: FERROUS SULFATE 60 MG/ML 5ML CUP GTB ×2 (09:03→20:52)
[2018-04-14] MEDS: ESCITALOPRAM 10 MG TAB GTB (09:03)
[2018-04-14] MEDS: MULTIVITAMINS 30 ML CUP GTB (09:03)
[2018-04-14] MEDS: CEFEPIME 1GM/50 ML (PMX) 50 ML IVPB ×2 (09:03→20:52)
[2018-04-14] MEDS: LANSOPRAZOLE 30 MG CAP GTB (09:03)
[2018-04-14] MEDS: ENOXAPARIN 30 MG/0.3 ML SYG SC (09:07)
[2018-04-14] MEDS: VORICONAZOLE 200 MG TAB PO ×2 (09:09→20:52)
[2018-04-14] MEDS: BALSAM PERU/CASTOR OIL 60 GM TUBE TOP (09:10)
[2018-04-14] MEDS: ACETAMINOPHEN 650MG/20.3ML CUP GTB (22:24)
[2018-04-15] MEDS: BISACODYL 10 MG SUPP PR
[2018-04-15] MEDS: IPRATROPIUM (HFA) 12.9 GM INHALER INH ×4 (01:01→19:16)
[2018-04-15] MEDS: ALBUTEROL HFA 8 GM INHALER INH ×4 (01:01→19:16)
[2018-04-15] MEDS: VANCOMYCIN 750 MG in SOD CHLORIDE 0.9% 150 ML IVPB ×2 (05:20→18:57)
[2018-04-15] MEDS: metroNIDAZOLE 500 MG TAB PO ×3 (05:30→22:00)
[2018-04-15 07:04] LABS: BLOOD UREA NITROGEN 27 mg/dl (7-20)
[2018-04-15 07:04] LABS: CREATININE 0.55 mg/dl (0.61-1.24)
[2018-04-15] MEDS: ENOXAPARIN 30 MG/0.3 ML SYG SC (09:38)
[2018-04-15] MEDS: MULTIVITAMINS 30 ML CUP GTB (09:39)
[2018-04-15] MEDS: DOCUSATE SODIUM 10 MG/ML (10ML CUP) GTB ×2 (09:39→20:39)
[2018-04-15] MEDS: ESCITALOPRAM 10 MG TAB GTB (09:39)
[2018-04-15] MEDS: FERROUS SULFATE 60 MG/ML 5ML CUP GTB ×2 (09:39→20:38)
[2018-04-15] MEDS: BALSAM PERU/CASTOR OIL 60 GM TUBE TOP (09:40)
[2018-04-15] MEDS: VORICONAZOLE 200 MG TAB PO ×2 (09:40→20:38)
[2018-04-15] MEDS: LANSOPRAZOLE 30 MG CAP GTB (09:40)
[2018-04-15] MEDS: CEFEPIME 1GM/50 ML (PMX) 50 ML IVPB ×2 (09:40→20:39)
[2018-04-15] MEDS: morphine LIQ (10 MG/5 ML) CUP GTB (11:35)
[2018-04-16] MEDS: BISACODYL 10 MG SUPP PR
[2018-04-16] MEDS: IPRATROPIUM (HFA) 12.9 GM INHALER INH ×4 (01:10→21:03)
[2018-04-16] MEDS: ALBUTEROL HFA 8 GM INHALER INH ×4 (01:11→21:03)
[2018-04-16] MEDS: metroNIDAZOLE 500 MG TAB PO ×2 (05:48→13:19)
[2018-04-16 07:12] LABS: VANCOMYCIN,TROUGH 16.3 ug/ml (10.0-20.0)
[2018-04-16] MEDS: VANCOMYCIN 750 MG in SOD CHLORIDE 0.9% 150 ML IVPB (08:01)
[2018-04-16] MEDS: CEFEPIME 1GM/50 ML (PMX) 50 ML IVPB (09:12)
[2018-04-16] MEDS: DOCUSATE SODIUM 10 MG/ML (10ML CUP) GTB ×2 (09:13→20:07)
[2018-04-16] MEDS: ESCITALOPRAM 10 MG TAB GTB (09:13)
[2018-04-16] MEDS: VORICONAZOLE 200 MG TAB PO (09:13)
[2018-04-16] MEDS: BALSAM PERU/CASTOR OIL 60 GM TUBE TOP (09:13)
[2018-04-16] MEDS: FERROUS SULFATE 60 MG/ML 5ML CUP GTB ×2 (09:13→20:08)
[2018-04-16] MEDS: LANSOPRAZOLE 30 MG CAP GTB (09:13)
[2018-04-16] MEDS: MULTIVITAMINS 30 ML CUP GTB (09:13)
[2018-04-16] MEDS: ENOXAPARIN 30 MG/0.3 ML SYG SC (09:23)
[2018-04-16] MEDS: NYSTATIN SUSP 5 ML CUP PO ×2 (18:51→20:08)
[2018-04-17] MEDS: BISACODYL 10 MG SUPP PR
[2018-04-17] MEDS: IPRATROPIUM (HFA) 12.9 GM INHALER INH ×4 (01:22→19:21)
[2018-04-17] MEDS: ALBUTEROL HFA 8 GM INHALER INH ×4 (01:23→19:21)
[2018-04-17] MEDS: ESCITALOPRAM 10 MG TAB GTB (09:21)
[2018-04-17] MEDS: BALSAM PERU/CASTOR OIL 60 GM TUBE TOP (09:21)
[2018-04-17] MEDS: FERROUS SULFATE 60 MG/ML 5ML CUP GTB ×2 (09:21→21:31)
[2018-04-17] MEDS: NYSTATIN SUSP 5 ML CUP PO ×4 (09:21→21:30)
[2018-04-17] MEDS: LANSOPRAZOLE 30 MG CAP GTB (09:21)
[2018-04-17] MEDS: MULTIVITAMINS 30 ML CUP GTB (09:21)
[2018-04-17] MEDS: DOCUSATE SODIUM 10 MG/ML (10ML CUP) GTB ×2 (09:21→21:32)
[2018-04-17] MEDS: ACETAMINOPHEN 650MG/20.3ML CUP GTB ×2 (09:21→21:31)
[2018-04-17] MEDS: ENOXAPARIN 30 MG/0.3 ML SYG SC (09:24)
[2018-04-17] MEDS: morphine LIQ (10 MG/5 ML) CUP GTB (09:32)
[2018-04-18] MEDS: BISACODYL 10 MG SUPP PR
[2018-04-18] MEDS: IPRATROPIUM (HFA) 12.9 GM INHALER INH ×4 (01:42→19:21)
[2018-04-18] MEDS: ALBUTEROL HFA 8 GM INHALER INH ×4 (01:42→19:21)
[2018-04-18] MEDS: DOCUSATE SODIUM 10 MG/ML (10ML CUP) GTB ×2 (07:39→20:48)
[2018-04-18] MEDS: ESCITALOPRAM 10 MG TAB GTB (07:40)
[2018-04-18] MEDS: ACETAMINOPHEN 650MG/20.3ML CUP GTB (07:40)
[2018-04-18] MEDS: NYSTATIN SUSP 5 ML CUP PO ×4 (07:40→20:48)
[2018-04-18] MEDS: BALSAM PERU/CASTOR OIL 60 GM TUBE TOP (07:40)
[2018-04-18] MEDS: FERROUS SULFATE 60 MG/ML 5ML CUP GTB ×2 (07:40→20:48)
[2018-04-18] MEDS: LANSOPRAZOLE 30 MG CAP GTB (07:40)
[2018-04-18] MEDS: MULTIVITAMINS 30 ML CUP GTB (07:40)
[2018-04-18] MEDS: ENOXAPARIN 30 MG/0.3 ML SYG SC (07:53)
[2018-04-18] MEDS ORDERED: VITAMIN A & D 5 GM OINT PACKET TOP (11:58)
[2018-04-18] MEDS ORDERED: VANCOMYCIN IV PER PHARMACY XX (14:30)
[2018-04-18] MEDS: MEROPENEM 1 GM/50ML(PMX) 50 ML IVPB ×2 (14:40→20:48)
[2018-04-18 15:49] LABS: ADD MAN DIFF? NO
[2018-04-18 15:52] LABS: BASOPHIL # 0.1 10^3/ul (0.0-0.1); BASOPHILS % 0.7 % (0.0-2.0); EOSINOPHILS # 0.2 10^3/ul (0.0-0.5); EOSINOPHILS % 2.2 % (0.0-7.0); HEMATOCRIT 34.5 % (42.0-52.0); HEMOGLOBIN 10.6 g/dl (14.0-18.0); LYMPHOCYTES # 1.4 10^3/ul (0.8-2.9); LYMPHOCYTES % 15.9 % (15.0-51.0); MEAN CORPUSCULAR HEMOGLOBIN 28.4 pg (29.0-33.0); MEAN CORPUSCULAR HGB CONC 30.7 g/dl (32.0-37.0); MEAN CORPUSCULAR VOLUME 92.5 fl (82.0-101.0); MEAN PLATELET VOLUME 11.4 fl (7.4-10.4); MONOCYTE # 0.8 10^3/ul (0.3-0.9); MONOCYTES % 9.2 % (0.0-11.0); NEUTROPHIL # 6.1 10^3/ul (1.6-7.5); NEUTROPHILS % 71.8 % (39.0-77.0); PLATELET COUNT 260 10^3/UL (140-415); RED BLOOD COUNT 3.73 10^6/ul (4.70-6.10); RED CELL DISTRIBUTION WIDTH 15.1 % (11.5-14.5)
[2018-04-18 15:52] LABS: WHITE BLOOD COUNT 8.5 10^3/ul (4.8-10.8)
[2018-04-18 16:37] LABS: ALANINE AMINOTRANSFERASE 17 IU/L (13-69); ALBUMIN 3.7 g/dl (3.3-4.9); ALBUMIN/GLOBULIN RATIO 1.12; ALKALINE PHOSPHATASE 140 IU/L (42-121); ANION GAP 13 (5-13); ASPARTATE AMINO TRANSFERASE 27 IU/L (15-46); BILIRUBIN,INDIRECT 0.3 mg/dl (0-1.1); BILIRUBIN,TOTAL 0.3 mg/dl (0.2-1.3); BLOOD UREA NITROGEN 29 mg/dl (7-20); CALCIUM 9.4 mg/dl (8.4-10.2); CARBON DIOXIDE 31 mmol/L (21-31); CHLORIDE 101 mmol/L (97-110); CREATININE 0.56 mg/dl (0.61-1.24); Estimated GFR > 60 mL/min (>60); GLUCOSE 130 mg/dl (70-220); LIPASE 376 U/L (23-300); POTASSIUM 4.6 mmol/L (3.5-5.1); SODIUM 145 mmol/L (135-144)
[2018-04-18] MEDS: VANCOMYCIN 1.25 GM in SOD CHLORIDE 0.9% 250 ML IVPB (18:14)
[2018-04-19] MEDS: BISACODYL 10 MG SUPP PR (00:36)
[2018-04-19] MEDS: ACETAMINOPHEN 650MG/20.3ML CUP GTB ×3 (00:36→16:29)
[2018-04-19] MEDS: ALBUTEROL HFA 8 GM INHALER INH ×4 (01:15→19:14)
[2018-04-19] MEDS: IPRATROPIUM (HFA) 12.9 GM INHALER INH ×4 (01:15→19:14)
[2018-04-19] MEDS: VANCOMYCIN 750 MG in SOD CHLORIDE 0.9% 150 ML IVPB ×2 (06:18→17:38)
[2018-04-19] MEDS: DOCUSATE SODIUM 10 MG/ML (10ML CUP) GTB ×2 (07:50→21:43)
[2018-04-19] MEDS: NYSTATIN SUSP 5 ML CUP PO ×4 (07:51→21:43)
[2018-04-19] MEDS: MEROPENEM 1 GM/50ML(PMX) 50 ML IVPB ×2 (07:51→21:43)
[2018-04-19] MEDS: FERROUS SULFATE 60 MG/ML 5ML CUP GTB ×2 (07:51→21:43)
[2018-04-19] MEDS: LANSOPRAZOLE 30 MG CAP GTB (07:51)
[2018-04-19] MEDS: ESCITALOPRAM 10 MG TAB GTB (07:51)
[2018-04-19] MEDS: MULTIVITAMINS 30 ML CUP GTB (07:51)
[2018-04-19] MEDS: BALSAM PERU/CASTOR OIL 60 GM TUBE TOP (07:52)
[2018-04-19 08:04] LABS: ADD MAN DIFF? NO
[2018-04-19] MEDS: ENOXAPARIN 30 MG/0.3 ML SYG SC (08:06)
[2018-04-19 08:13] LABS: WHITE BLOOD COUNT 7.5 10^3/ul (4.8-10.8)
[2018-04-19 08:13] LABS: BASOPHILS % 0.5 % (0.0-2.0); EOSINOPHILS # 0.2 10^3/ul (0.0-0.5); EOSINOPHILS % 2.9 % (0.0-7.0); HEMATOCRIT 34.1 % (42.0-52.0); HEMOGLOBIN 10.5 g/dl (14.0-18.0); LYMPHOCYTES # 1.1 10^3/ul (0.8-2.9); LYMPHOCYTES % 14.2 % (15.0-51.0); MEAN CORPUSCULAR HEMOGLOBIN 28.6 pg (29.0-33.0); MEAN CORPUSCULAR HGB CONC 30.8 g/dl (32.0-37.0); MEAN CORPUSCULAR VOLUME 92.9 fl (82.0-101.0); MEAN PLATELET VOLUME 11.3 fl (7.4-10.4); MONOCYTE # 0.6 10^3/ul (0.3-0.9); MONOCYTES % 7.7 % (0.0-11.0); NEUTROPHIL # 5.6 10^3/ul (1.6-7.5); NEUTROPHILS % 74.3 % (39.0-77.0); PLATELET COUNT 244 10^3/UL (140-415); RED BLOOD COUNT 3.67 10^6/ul (4.70-6.10); RED CELL DISTRIBUTION WIDTH 15.2 % (11.5-14.5)
[2018-04-19 08:35] LABS: ANION GAP 9 (5-13); BLOOD UREA NITROGEN 25 mg/dl (7-20); CALCIUM 9.1 mg/dl (8.4-10.2); CARBON DIOXIDE 31 mmol/L (21-31); CHLORIDE 105 mmol/L (97-110); CREATININE 0.56 mg/dl (0.61-1.24); Estimated GFR > 60 mL/min (>60); GLUCOSE 143 mg/dl (70-220); POTASSIUM 4.6 mmol/L (3.5-5.1); SODIUM 145 mmol/L (135-144)
[2018-04-20] MEDS: BISACODYL 10 MG SUPP PR (01:11)
[2018-04-20] MEDS: IPRATROPIUM (HFA) 12.9 GM INHALER INH ×4 (02:08→20:56)
[2018-04-20] MEDS: ALBUTEROL HFA 8 GM INHALER INH ×4 (02:08→20:56)
[2018-04-20 06:06] LABS: ADD MAN DIFF? NO
[2018-04-20 06:11] LABS: WHITE BLOOD COUNT 8.5 10^3/ul (4.8-10.8)
[2018-04-20 06:11] LABS: BASOPHIL # 0.1 10^3/ul (0.0-0.1); BASOPHILS % 0.7 % (0.0-2.0); EOSINOPHILS # 0.2 10^3/ul (0.0-0.5); EOSINOPHILS % 2.8 % (0.0-7.0); HEMATOCRIT 35.5 % (42.0-52.0); HEMOGLOBIN 10.9 g/dl (14.0-18.0); LYMPHOCYTES # 1.1 10^3/ul (0.8-2.9); LYMPHOCYTES % 12.9 % (15.0-51.0); MEAN CORPUSCULAR HEMOGLOBIN 28.5 pg (29.0-33.0); MEAN CORPUSCULAR HGB CONC 30.7 g/dl (32.0-37.0); MEAN CORPUSCULAR VOLUME 92.9 fl (82.0-101.0); MEAN PLATELET VOLUME 11.1 fl (7.4-10.4); MONOCYTE # 0.9 10^3/ul (0.3-0.9); MONOCYTES % 10.4 % (0.0-11.0); NEUTROPHIL # 6.2 10^3/ul (1.6-7.5); PLATELET COUNT 250 10^3/UL (140-415); RED BLOOD COUNT 3.82 10^6/ul (4.70-6.10); RED CELL DISTRIBUTION WIDTH 15.1 % (11.5-14.5)
[2018-04-20 06:33] LABS: ANION GAP 7 (5-13); BLOOD UREA NITROGEN 27 mg/dl (7-20); CARBON DIOXIDE 34 mmol/L (21-31); CHLORIDE 106 mmol/L (97-110); CREATININE 0.49 mg/dl (0.61-1.24); Estimated GFR > 60 mL/min (>60); GLUCOSE 112 mg/dl (70-220); POTASSIUM 4.7 mmol/L (3.5-5.1); SODIUM 147 mmol/L (135-144)
[2018-04-20 06:36] LABS: VANCOMYCIN,TROUGH 14.1 ug/ml (10.0-20.0)
[2018-04-20] MEDS: VANCOMYCIN 750 MG in SOD CHLORIDE 0.9% 150 ML IVPB ×2 (07:51→18:34)
[2018-04-20] MEDS: LANSOPRAZOLE 30 MG CAP GTB (09:07)
[2018-04-20] MEDS: FERROUS SULFATE 60 MG/ML 5ML CUP GTB ×2 (09:07→21:28)
[2018-04-20] MEDS: DOCUSATE SODIUM 10 MG/ML (10ML CUP) GTB ×2 (09:07→21:27)
[2018-04-20] MEDS: ESCITALOPRAM 10 MG TAB GTB (09:08)
[2018-04-20] MEDS: NYSTATIN SUSP 5 ML CUP PO ×4 (09:08→21:28)
[2018-04-20] MEDS: MULTIVITAMINS 30 ML CUP GTB (09:08)
[2018-04-20] MEDS: BALSAM PERU/CASTOR OIL 60 GM TUBE TOP (09:13)
[2018-04-20] MEDS: ENOXAPARIN 30 MG/0.3 ML SYG SC (09:17)
[2018-04-20] MEDS: MEROPENEM 1 GM/50ML(PMX) 50 ML IVPB ×2 (10:19→21:28)
[2018-04-21] MEDS: BISACODYL 10 MG SUPP PR (00:43)
[2018-04-21] MEDS: IPRATROPIUM (HFA) 12.9 GM INHALER INH ×4 (02:19→21:45)
[2018-04-21] MEDS: ALBUTEROL HFA 8 GM INHALER INH ×4 (02:19→21:46)
[2018-04-21] MEDS: ACETAMINOPHEN 650MG/20.3ML CUP GTB ×3 (03:34→14:26)
[2018-04-21] MEDS: VANCOMYCIN 750 MG in SOD CHLORIDE 0.9% 150 ML IVPB ×2 (06:45→18:26)
[2018-04-21] MEDS: DOCUSATE SODIUM 10 MG/ML (10ML CUP) GTB ×2 (08:06→21:32)
[2018-04-21] MEDS: FERROUS SULFATE 60 MG/ML 5ML CUP GTB ×2 (08:07→21:32)
[2018-04-21] MEDS: MEROPENEM 1 GM/50ML(PMX) 50 ML IVPB ×2 (08:07→21:31)
[2018-04-21] MEDS: ESCITALOPRAM 10 MG TAB GTB (08:07)
[2018-04-21] MEDS: MULTIVITAMINS 30 ML CUP GTB (08:07)
[2018-04-21] MEDS: LANSOPRAZOLE 30 MG CAP GTB (08:08)
[2018-04-21] MEDS: NYSTATIN SUSP 5 ML CUP PO ×4 (08:08→21:32)
[2018-04-21] MEDS: ENOXAPARIN 30 MG/0.3 ML SYG SC (08:21)
[2018-04-21] MEDS: BALSAM PERU/CASTOR OIL 60 GM TUBE TOP (09:00)
[2018-04-21 11:37] LABS: PROCALCITONIN <0.10 ng/mL (<0.10)
[2018-04-21] MEDS: FLUCONAZOLE 100 MG TAB PO (12:41)
[2018-04-21] MEDS: IOHEXOL 300MG/ML 150 ML BTL (15:05)
[2018-04-21] MEDS: SOD CHLORIDE 0.9% 100 ML (15:05)
[2018-04-22] MEDS: BISACODYL 10 MG SUPP PR
[2018-04-22] MEDS: ALBUTEROL HFA 8 GM INHALER INH ×4 (01:30→20:06)
[2018-04-22] MEDS: IPRATROPIUM (HFA) 12.9 GM INHALER INH ×4 (01:30→20:06)
[2018-04-22] MEDS: VANCOMYCIN 750 MG in SOD CHLORIDE 0.9% 150 ML IVPB ×2 (06:10→18:53)
[2018-04-22] MEDS: MULTIVITAMINS 30 ML CUP GTB (09:35)
[2018-04-22] MEDS: FERROUS SULFATE 60 MG/ML 5ML CUP GTB ×2 (09:35→21:53)
[2018-04-22] MEDS: NYSTATIN SUSP 5 ML CUP PO ×4 (09:35→21:53)
[2018-04-22] MEDS: DOCUSATE SODIUM 10 MG/ML (10ML CUP) GTB ×2 (09:35→21:53)
[2018-04-22] MEDS: ESCITALOPRAM 10 MG TAB GTB (09:36)
[2018-04-22] MEDS: BALSAM PERU/CASTOR OIL 60 GM TUBE TOP (09:36)
[2018-04-22] MEDS: MEROPENEM 1 GM/50ML(PMX) 50 ML IVPB ×2 (09:36→21:53)
[2018-04-22] MEDS: FLUCONAZOLE 100 MG TAB PO (09:36)
[2018-04-22] MEDS: LANSOPRAZOLE 30 MG CAP GTB (09:36)
[2018-04-22] MEDS: ENOXAPARIN 30 MG/0.3 ML SYG SC (09:38)
[2018-04-22] MEDS: ACETAMINOPHEN 650MG/20.3ML CUP GTB (09:42)
[2018-04-23] MEDS: BISACODYL 10 MG SUPP PR
[2018-04-23] MEDS: IPRATROPIUM (HFA) 12.9 GM INHALER INH ×4 (01:10→19:27)
[2018-04-23] MEDS: ALBUTEROL HFA 8 GM INHALER INH ×4 (01:10→19:27)
[2018-04-23] MEDS: ACETAMINOPHEN 650MG/20.3ML CUP GTB ×2 (03:54→22:17)
[2018-04-23 07:02] LABS: BLOOD UREA NITROGEN 27 mg/dl (7-20)
[2018-04-23 07:02] LABS: CREATININE 0.57 mg/dl (0.61-1.24)
[2018-04-23] MEDS: VANCOMYCIN 750 MG in SOD CHLORIDE 0.9% 150 ML IVPB ×2 (08:14→18:05)
[2018-04-23] MEDS: MEROPENEM 1 GM/50ML(PMX) 50 ML IVPB ×2 (09:00→22:18)
[2018-04-23] MEDS: FERROUS SULFATE 60 MG/ML 5ML CUP GTB ×2 (09:05→22:17)
[2018-04-23] MEDS: DOCUSATE SODIUM 10 MG/ML (10ML CUP) GTB ×2 (09:05→22:17)
[2018-04-23] MEDS: MULTIVITAMINS 30 ML CUP GTB (09:06)
[2018-04-23] MEDS: ENOXAPARIN 30 MG/0.3 ML SYG SC (09:10)
[2018-04-23] MEDS: LANSOPRAZOLE 30 MG CAP GTB (09:13)
[2018-04-23] MEDS: ESCITALOPRAM 10 MG TAB GTB (09:13)
[2018-04-23] MEDS: FLUCONAZOLE 100 MG TAB PO (09:13)
[2018-04-23] MEDS: BALSAM PERU/CASTOR OIL 60 GM TUBE TOP (09:14)
[2018-04-23] MEDS: NYSTATIN SUSP 5 ML CUP PO ×4 (09:14→22:17)
[2018-04-24] MEDS: BISACODYL 10 MG SUPP PR
[2018-04-24] MEDS: IPRATROPIUM (HFA) 12.9 GM INHALER INH ×4 (01:18→21:28)
[2018-04-24] MEDS: ALBUTEROL HFA 8 GM INHALER INH ×4 (01:18→21:28)
[2018-04-24] MEDS: VANCOMYCIN 750 MG in SOD CHLORIDE 0.9% 150 ML IVPB ×2 (06:32→19:46)
[2018-04-24 07:05] LABS: ADD MAN DIFF? NO
[2018-04-24 07:11] LABS: BASOPHIL # 0.1 10^3/ul (0.0-0.1); BASOPHILS % 0.8 % (0.0-2.0); EOSINOPHILS # 0.1 10^3/ul (0.0-0.5); EOSINOPHILS % 1.9 % (0.0-7.0); HEMATOCRIT 37.2 % (42.0-52.0); HEMOGLOBIN 11.3 g/dl (14.0-18.0); LYMPHOCYTES # 0.9 10^3/ul (0.8-2.9); LYMPHOCYTES % 13.9 % (15.0-51.0); MEAN CORPUSCULAR HEMOGLOBIN 28.5 pg (29.0-33.0); MEAN CORPUSCULAR HGB CONC 30.4 g/dl (32.0-37.0); MEAN CORPUSCULAR VOLUME 93.7 fl (82.0-101.0); MEAN PLATELET VOLUME 11.5 fl (7.4-10.4); MONOCYTE # 0.6 10^3/ul (0.3-0.9); MONOCYTES % 9.1 % (0.0-11.0); NEUTROPHIL # 4.7 10^3/ul (1.6-7.5); NEUTROPHILS % 73.8 % (39.0-77.0); PLATELET COUNT 218 10^3/UL (140-415); RED BLOOD COUNT 3.97 10^6/ul (4.70-6.10); RED CELL DISTRIBUTION WIDTH 15.2 % (11.5-14.5)
[2018-04-24 07:11] LABS: WHITE BLOOD COUNT 6.3 10^3/ul (4.8-10.8)
[2018-04-24 07:48] LABS: ALANINE AMINOTRANSFERASE 18 IU/L (13-69); ALBUMIN 3.5 g/dl (3.3-4.9); ALBUMIN/GLOBULIN RATIO 1.06; ALKALINE PHOSPHATASE 109 IU/L (42-121); ANION GAP 10 (5-13); ASPARTATE AMINO TRANSFERASE 18 IU/L (15-46); BILIRUBIN,INDIRECT 0.3 mg/dl (0-1.1); BILIRUBIN,TOTAL 0.3 mg/dl (0.2-1.3); BLOOD UREA NITROGEN 33 mg/dl (7-20); CARBON DIOXIDE 32 mmol/L (21-31); CHLORIDE 104 mmol/L (97-110); CREATININE 0.53 mg/dl (0.61-1.24); Estimated GFR > 60 mL/min (>60); GLUCOSE 146 mg/dl (70-220); POTASSIUM 4.6 mmol/L (3.5-5.1); SODIUM 146 mmol/L (135-144); TOTAL PROTEIN 6.8 g/dl (6.1-8.1)
[2018-04-24] MEDS: FLUCONAZOLE 100 MG TAB PO (08:25)
[2018-04-24] MEDS: MULTIVITAMINS 30 ML CUP GTB (08:25)
[2018-04-24] MEDS: NYSTATIN SUSP 5 ML CUP PO ×4 (08:25→21:19)
[2018-04-24] MEDS: FERROUS SULFATE 60 MG/ML 5ML CUP GTB ×2 (08:25→21:19)
[2018-04-24] MEDS: DOCUSATE SODIUM 10 MG/ML (10ML CUP) GTB ×2 (08:25→21:29)
[2018-04-24] MEDS: ESCITALOPRAM 10 MG TAB GTB (08:25)
[2018-04-24] MEDS: LANSOPRAZOLE 30 MG CAP GTB (08:25)
[2018-04-24] MEDS: BALSAM PERU/CASTOR OIL 60 GM TUBE TOP (08:26)
[2018-04-24] MEDS: ENOXAPARIN 30 MG/0.3 ML SYG SC (08:33)
[2018-04-24] MEDS: MEROPENEM 1 GM/50ML(PMX) 50 ML IVPB ×2 (10:01→21:20)
[2018-04-24] MEDS: ACETAMINOPHEN 650MG/20.3ML CUP GTB (18:24)
[2018-04-24] MEDS: TOBRAMYCIN/0.25NS 300 MG/5 ML INHAL NEB (20:00)
[2018-04-25] MEDS: BISACODYL 10 MG SUPP PR
[2018-04-25] MEDS: IPRATROPIUM (HFA) 12.9 GM INHALER INH ×4 (01:44→19:57)
[2018-04-25] MEDS: ALBUTEROL HFA 8 GM INHALER INH ×4 (01:44→19:57)
[2018-04-25] MEDS: VANCOMYCIN 750 MG in SOD CHLORIDE 0.9% 150 ML IVPB ×2 (07:07→19:08)
[2018-04-25] MEDS: BALSAM PERU/CASTOR OIL 60 GM TUBE TOP (08:32)
[2018-04-25] MEDS: MEROPENEM 1 GM/50ML(PMX) 50 ML IVPB (08:33)
[2018-04-25] MEDS: MULTIVITAMINS 30 ML CUP GTB (08:34)
[2018-04-25] MEDS: ACETAMINOPHEN 650MG/20.3ML CUP GTB ×2 (08:34→14:47)
[2018-04-25] MEDS: DOCUSATE SODIUM 10 MG/ML (10ML CUP) GTB ×2 (08:34→21:00)
[2018-04-25] MEDS: NYSTATIN SUSP 5 ML CUP PO ×4 (08:35→21:50)
[2018-04-25] MEDS: FLUCONAZOLE 100 MG TAB PO (08:35)
[2018-04-25] MEDS: ESCITALOPRAM 10 MG TAB GTB (08:35)
[2018-04-25] MEDS: FERROUS SULFATE 60 MG/ML 5ML CUP GTB ×2 (08:35→21:50)
[2018-04-25] MEDS: LANSOPRAZOLE 30 MG CAP GTB (08:35)
[2018-04-25] MEDS: ENOXAPARIN 30 MG/0.3 ML SYG SC (08:41)
[2018-04-25] MEDS: TOBRAMYCIN/0.25NS 300 MG/5 ML INHAL NEB (08:50)
[2018-04-25] MEDS ORDERED: TOBRAMYCIN IV PER PHARMACY XX (13:30)
[2018-04-25] MEDS ORDERED: TOBRAMYCIN 300 MG in SOD CHLORIDE 0.9% 100 ML IVPB (17:00)
[2018-04-25] MEDS: TOBRAMYCIN 300 MG in SOD CHLORIDE 0.9% 100 ML IVPB (17:47)
[2018-04-26] MEDS: BISACODYL 10 MG SUPP PR
[2018-04-26] MEDS: IPRATROPIUM (HFA) 12.9 GM INHALER INH ×4 (01:52→19:25)
[2018-04-26] MEDS: ALBUTEROL HFA 8 GM INHALER INH ×4 (01:52→19:25)
[2018-04-26] MEDS: ACETAMINOPHEN 650MG/20.3ML CUP GTB ×2 (04:31→12:13)
[2018-04-26] MEDS: VANCOMYCIN 750 MG in SOD CHLORIDE 0.9% 150 ML IVPB ×2 (06:27→22:41)
[2018-04-26 07:30] LABS: TOBRAMYCIN, RANDOM 2.6 ug/ml
[2018-04-26] MEDS: BALSAM PERU/CASTOR OIL 60 GM TUBE TOP (08:53)
[2018-04-26] MEDS: FLUCONAZOLE 100 MG TAB PO (08:54)
[2018-04-26] MEDS: FERROUS SULFATE 60 MG/ML 5ML CUP GTB ×2 (08:54→22:35)
[2018-04-26] MEDS: MULTIVITAMINS 30 ML CUP GTB (08:54)
[2018-04-26] MEDS: NYSTATIN SUSP 5 ML CUP PO ×4 (08:54→22:35)
[2018-04-26] MEDS: LANSOPRAZOLE 30 MG CAP GTB (08:54)
[2018-04-26] MEDS: ESCITALOPRAM 10 MG TAB GTB (08:54)
[2018-04-26] MEDS: DOCUSATE SODIUM 10 MG/ML (10ML CUP) GTB ×2 (08:55→21:00)
[2018-04-26] MEDS: ENOXAPARIN 30 MG/0.3 ML SYG SC (08:58)
[2018-04-26] MEDS: TOBRAMYCIN 300 MG in SOD CHLORIDE 0.9% 100 ML IVPB (16:39)
[2018-04-26 19:07] LABS: VANCOMYCIN,TROUGH 18.3 ug/ml (10.0-20.0)
[2018-04-27] MEDS: BISACODYL 10 MG SUPP PR
[2018-04-27] MEDS: ALBUTEROL HFA 8 GM INHALER INH ×4 (01:16→19:51)
[2018-04-27] MEDS: IPRATROPIUM (HFA) 12.9 GM INHALER INH ×4 (01:16→19:51)
[2018-04-27 06:28] LABS: ADD MAN DIFF? NO
[2018-04-27 06:35] LABS: WHITE BLOOD COUNT 10.1 10^3/ul (4.8-10.8)
[2018-04-27 06:35] LABS: BASOPHIL # 0.1 10^3/ul (0.0-0.1); BASOPHILS % 0.5 % (0.0-2.0); EOSINOPHILS # 0.1 10^3/ul (0.0-0.5); EOSINOPHILS % 0.8 % (0.0-7.0); HEMATOCRIT 36.1 % (42.0-52.0); HEMOGLOBIN 11.6 g/dl (14.0-18.0); LYMPHOCYTES % 9.8 % (15.0-51.0); MEAN CORPUSCULAR HEMOGLOBIN 29.1 pg (29.0-33.0); MEAN CORPUSCULAR HGB CONC 32.1 g/dl (32.0-37.0); MEAN CORPUSCULAR VOLUME 90.7 fl (82.0-101.0); MEAN PLATELET VOLUME 11.8 fl (7.4-10.4); MONOCYTE # 0.9 10^3/ul (0.3-0.9); MONOCYTES % 8.9 % (0.0-11.0); NEUTROPHILS % 79.7 % (39.0-77.0); PLATELET COUNT 209 10^3/UL (140-415); RED BLOOD COUNT 3.98 10^6/ul (4.70-6.10); RED CELL DISTRIBUTION WIDTH 14.6 % (11.5-14.5)
[2018-04-27] MEDS: VANCOMYCIN 750 MG (PMX) 250 ML IVPB (06:47)
[2018-04-27 07:05] LABS: ANION GAP 9 (5-13); BLOOD UREA NITROGEN 35 mg/dl (7-20); CALCIUM 9.2 mg/dl (8.4-10.2); CARBON DIOXIDE 34 mmol/L (21-31); CHLORIDE 101 mmol/L (97-110); CREATININE 0.57 mg/dl (0.61-1.24); Estimated GFR > 60 mL/min (>60); GLUCOSE 124 mg/dl (70-220); POTASSIUM 4.7 mmol/L (3.5-5.1); SODIUM 144 mmol/L (135-144)
[2018-04-27] MEDS: FERROUS SULFATE 60 MG/ML 5ML CUP GTB ×2 (09:33→21:39)
[2018-04-27] MEDS: MULTIVITAMINS 30 ML CUP GTB (09:33)
[2018-04-27] MEDS: DOCUSATE SODIUM 10 MG/ML (10ML CUP) GTB ×2 (09:33→21:39)
[2018-04-27] MEDS: LANSOPRAZOLE 30 MG CAP GTB (09:34)
[2018-04-27] MEDS: FLUCONAZOLE 100 MG TAB PO (09:34)
[2018-04-27] MEDS: NYSTATIN SUSP 5 ML CUP PO ×4 (09:35→21:39)
[2018-04-27] MEDS: ESCITALOPRAM 10 MG TAB GTB (09:36)
[2018-04-27] MEDS: BALSAM PERU/CASTOR OIL 60 GM TUBE TOP (09:36)
[2018-04-27] MEDS: ENOXAPARIN 30 MG/0.3 ML SYG SC (09:43)
[2018-04-27] MEDS: TOBRAMYCIN 300 MG in SOD CHLORIDE 0.9% 100 ML IVPB (16:59)
[2018-04-27] MEDS: ACETAMINOPHEN 650MG/20.3ML CUP GTB (17:06)
[2018-04-27] MEDS: VANCOMYCIN 500 MG (PMX) 100 ML IVPB (18:58)
[2018-04-28] MEDS: BISACODYL 10 MG SUPP PR (00:10)
[2018-04-28] MEDS: ALBUTEROL HFA 8 GM INHALER INH ×4 (01:45→19:20)
[2018-04-28] MEDS: IPRATROPIUM (HFA) 12.9 GM INHALER INH ×4 (01:46→19:20)
[2018-04-28] MEDS: NYSTATIN SUSP 5 ML CUP PO ×4 (08:50→20:43)
[2018-04-28] MEDS: DOCUSATE SODIUM 10 MG/ML (10ML CUP) GTB ×2 (08:50→20:43)
[2018-04-28] MEDS: FLUCONAZOLE 100 MG TAB PO (08:51)
[2018-04-28] MEDS: LANSOPRAZOLE 30 MG CAP GTB (08:51)
[2018-04-28] MEDS: ESCITALOPRAM 10 MG TAB GTB (08:51)
[2018-04-28] MEDS: FERROUS SULFATE 60 MG/ML 5ML CUP GTB ×2 (08:51→20:43)
[2018-04-28] MEDS: MULTIVITAMINS 30 ML CUP GTB (08:51)
[2018-04-28] MEDS: ACETAMINOPHEN 650MG/20.3ML CUP GTB ×2 (08:51→14:13)
[2018-04-28] MEDS: VANCOMYCIN 500 MG (PMX) 100 ML IVPB ×2 (08:52→20:43)
[2018-04-28] MEDS: BALSAM PERU/CASTOR OIL 60 GM TUBE TOP (08:52)
[2018-04-28] MEDS: ENOXAPARIN 30 MG/0.3 ML SYG SC (09:14)
[2018-04-28] MEDS: metroNIDAZOLE 500 MG/NS (PMX) 100 ML IVPB ×2 (14:13→22:02)
[2018-04-28] MEDS: morphine LIQ (10 MG/5 ML) CUP GTB (17:42)
[2018-04-28] MEDS: TOBRAMYCIN 300 MG in SOD CHLORIDE 0.9% 100 ML IVPB (18:32)
[2018-04-28] MEDS: COLISTIMETHATE (25 MG/ML INHAL SYG) NEB (19:30)
[2018-04-29] MEDS: BISACODYL 10 MG SUPP PR (00:20)
[2018-04-29] MEDS: IPRATROPIUM (HFA) 12.9 GM INHALER INH ×4 (01:00→19:34)
[2018-04-29] MEDS: ALBUTEROL HFA 8 GM INHALER INH ×4 (01:00→19:34)
[2018-04-29] MEDS: metroNIDAZOLE 500 MG/NS (PMX) 100 ML IVPB ×3 (05:53→22:19)
[2018-04-29 07:09] LABS: C-REACTIVE PROTEIN 2.7 mg/dl (0.0-0.9)
[2018-04-29 07:10] LABS: VANCOMYCIN,TROUGH 14.6 ug/ml (10.0-20.0)
[2018-04-29 07:46] LABS: ERYTHROCYTE SEDIMENTATION RATE 64 mm/Hr (0-20)
[2018-04-29] MEDS: VANCOMYCIN 500 MG (PMX) 100 ML IVPB ×2 (08:37→18:27)
[2018-04-29] MEDS: NYSTATIN SUSP 5 ML CUP PO ×4 (08:37→20:42)
[2018-04-29] MEDS: ESCITALOPRAM 10 MG TAB GTB (08:38)
[2018-04-29] MEDS: FLUCONAZOLE 100 MG TAB PO (08:38)
[2018-04-29] MEDS: DOCUSATE SODIUM 10 MG/ML (10ML CUP) GTB ×2 (08:38→20:42)
[2018-04-29] MEDS: FERROUS SULFATE 60 MG/ML 5ML CUP GTB ×2 (08:38→20:42)
[2018-04-29] MEDS: LANSOPRAZOLE 30 MG CAP GTB (08:38)
[2018-04-29] MEDS: MULTIVITAMINS 30 ML CUP GTB (08:38)
[2018-04-29] MEDS: BALSAM PERU/CASTOR OIL 60 GM TUBE TOP (08:39)
[2018-04-29] MEDS: ENOXAPARIN 30 MG/0.3 ML SYG SC (08:43)
[2018-04-29] MEDS: COLISTIMETHATE (25 MG/ML INHAL SYG) NEB (09:00)
[2018-04-29] MEDS: ACETAMINOPHEN 650MG/20.3ML CUP GTB ×2 (09:02→15:17)
[2018-04-29] MEDS: TOBRAMYCIN 300 MG in SOD CHLORIDE 0.9% 100 ML IVPB (17:28)
[2018-04-30] MEDS: IPRATROPIUM (HFA) 12.9 GM INHALER INH ×4 (01:50→19:40)
[2018-04-30] MEDS: ALBUTEROL HFA 8 GM INHALER INH ×4 (01:50→19:40)
[2018-04-30] MEDS: metroNIDAZOLE 500 MG/NS (PMX) 100 ML IVPB ×3 (05:41→20:55)
[2018-04-30] MEDS: VANCOMYCIN 500 MG (PMX) 100 ML IVPB ×2 (06:44→17:57)
[2018-04-30 07:14] LABS: BLOOD UREA NITROGEN 49 mg/dl (7-20)
[2018-04-30 07:14] LABS: CREATININE 0.75 mg/dl (0.61-1.24)
[2018-04-30] MEDS: COLISTIMETHATE (25 MG/ML INHAL SYG) NEB ×2 (08:05→19:41)
[2018-04-30] MEDS: LANSOPRAZOLE 30 MG CAP GTB (08:50)
[2018-04-30] MEDS: FLUCONAZOLE 100 MG TAB PO (08:50)
[2018-04-30] MEDS: ESCITALOPRAM 10 MG TAB GTB (08:50)
[2018-04-30] MEDS: NYSTATIN SUSP 5 ML CUP PO ×4 (08:50→20:55)
[2018-04-30] MEDS: DOCUSATE SODIUM 10 MG/ML (10ML CUP) GTB ×2 (08:50→20:55)
[2018-04-30] MEDS: FERROUS SULFATE 60 MG/ML 5ML CUP GTB ×2 (08:50→20:55)
[2018-04-30] MEDS: MULTIVITAMINS 30 ML CUP GTB (08:50)
[2018-04-30] MEDS: ENOXAPARIN 30 MG/0.3 ML SYG SC (08:55)
[2018-04-30] MEDS: BALSAM PERU/CASTOR OIL 60 GM TUBE TOP (09:00)
[2018-04-30 09:22] LABS: PROSTATE SPECIFIC ANTIGEN 3.1 ng/ml (0.0-4.0)
[2018-04-30 16:13] LABS: RHEUMATOID FACTOR NEGATIVE (NEGATIVE)
[2018-04-30] MEDS ORDERED: VITAMIN A & D 5 GM OINT PACKET TOP (17:50)
[2018-04-30] MEDS: BISACODYL 10 MG SUPP PR ×2 (23:51)
[2018-05-01] MEDS: IPRATROPIUM (HFA) 12.9 GM INHALER INH ×4 (01:32→19:41)
[2018-05-01] MEDS: ALBUTEROL HFA 8 GM INHALER INH ×4 (01:32→19:41)
[2018-05-01] MEDS: TOBRAMYCIN 300 MG in SOD CHLORIDE 0.9% 100 ML IVPB (04:28)
[2018-05-01] MEDS: ACETAMINOPHEN 650MG/20.3ML CUP GTB ×3 (04:28→20:27)
[2018-05-01] MEDS: metroNIDAZOLE 500 MG/NS (PMX) 100 ML IVPB ×3 (05:34→23:02)
[2018-05-01 06:00] LABS: BLOOD UREA NITROGEN 49 mg/dl (7-20)
[2018-05-01 06:00] LABS: CREATININE 0.75 mg/dl (0.61-1.24)
[2018-05-01] MEDS: VANCOMYCIN 500 MG (PMX) 100 ML IVPB ×2 (07:01→20:17)
[2018-05-01] MEDS: MULTIVITAMINS 30 ML CUP GTB (08:54)
[2018-05-01] MEDS: ESCITALOPRAM 10 MG TAB GTB (08:54)
[2018-05-01] MEDS: DOCUSATE SODIUM 10 MG/ML (10ML CUP) GTB ×2 (08:54→20:25)
[2018-05-01] MEDS: FERROUS SULFATE 60 MG/ML 5ML CUP GTB ×2 (08:54→20:25)
[2018-05-01] MEDS: LANSOPRAZOLE 30 MG CAP GTB (08:54)
[2018-05-01] MEDS: FLUCONAZOLE 100 MG TAB PO (08:54)
[2018-05-01] MEDS: NYSTATIN SUSP 5 ML CUP PO ×4 (08:54→20:25)
[2018-05-01] MEDS: BALSAM PERU/CASTOR OIL 60 GM TUBE TOP (08:55)
[2018-05-01] MEDS: ENOXAPARIN 30 MG/0.3 ML SYG SC (09:10)
[2018-05-01] MEDS: SOD CHLORIDE 0.9% 1,000 ML IV ×3 (09:30→22:05)
[2018-05-01] MEDS: COLISTIMETHATE (25 MG/ML INHAL SYG) NEB ×2 (10:24→19:41)
[2018-05-01 13:31] LABS: ADD UMIC YES; UR ASCORBIC ACID 40 mg/dL (NEGATIVE); UR BILIRUBIN (Dip) NEGATIVE (NEGATIVE); UR BLOOD (Dip) NEGATIVE (NEGATIVE); UR CLARITY CLOUDY (CLEAR); UR COLOR YELLOW (YELLOW); UR GLUCOSE (Dip) NEGATIVE (NEGATIVE); UR KETONES (Dip) NEGATIVE (NEGATIVE); UR LEUKOCYTE ESTERASE (Dip) TRACE Leu/ul (NEGATIVE); UR NITRITE (Dip) NEGATIVE (NEGATIVE); UR RBC 5 /HPF (0-5); UR SPECIFIC GRAVITY (Dip) 1.017 (1.003-1.030); UR TOTAL PROTEIN (Dip) 2+ mg/dl (NEGATIVE); UR UROBILINOGEN (Dip) NEGATIVE (NEGATIVE); UR WBC 12 /HPF (0-5)
[2018-05-01] MEDS: MEROPENEM 1 GM/50ML(PMX) 50 ML IVPB (22:05)
[2018-05-02] MEDS: BISACODYL 10 MG SUPP PR
[2018-05-02] MEDS: ALBUTEROL HFA 8 GM INHALER INH ×4 (01:25→20:25)
[2018-05-02] MEDS: IPRATROPIUM (HFA) 12.9 GM INHALER INH ×4 (01:25→20:25)
[2018-05-02] MEDS: SOD CHLORIDE 0.9% 1,000 ML IV ×3 (05:30→18:08)
[2018-05-02] MEDS: metroNIDAZOLE 500 MG/NS (PMX) 100 ML IVPB (06:19)
[2018-05-02] MEDS: DOCUSATE SODIUM 10 MG/ML (10ML CUP) GTB ×2 (08:57→20:47)
[2018-05-02] MEDS: NYSTATIN SUSP 5 ML CUP PO ×4 (08:57→20:47)
[2018-05-02] MEDS: FERROUS SULFATE 60 MG/ML 5ML CUP GTB ×2 (08:57→20:47)
[2018-05-02] MEDS: ESCITALOPRAM 10 MG TAB GTB (08:58)
[2018-05-02] MEDS: LANSOPRAZOLE 30 MG CAP GTB (08:58)
[2018-05-02] MEDS: MEROPENEM 1 GM/50ML(PMX) 50 ML IVPB ×2 (08:58→20:47)
[2018-05-02] MEDS: MULTIVITAMINS 30 ML CUP GTB (08:58)
[2018-05-02] MEDS: ACETAMINOPHEN 650MG/20.3ML CUP GTB ×2 (08:58→17:24)
[2018-05-02] MEDS: FLUCONAZOLE 100 MG TAB PO (08:58)
[2018-05-02] MEDS: ENOXAPARIN 30 MG/0.3 ML SYG SC (09:00)
[2018-05-02] MEDS: COLISTIMETHATE (25 MG/ML INHAL SYG) NEB (09:00)
[2018-05-02] MEDS: VANCOMYCIN 500 MG (PMX) 100 ML IVPB (09:02)
[2018-05-02] MEDS: BALSAM PERU/CASTOR OIL 60 GM TUBE TOP (09:09)
[2018-05-02 10:36] LABS: CYTOMEGALOVIRUS ANTIBODY (IGG) <0.60 U/mL; CYTOMEGALOVIRUS ANTIBODY (IGM) <30.00 AU/mL
[2018-05-02 12:56] LABS: ANA SCREEN NEGATIVE (NEGATIVE)
[2018-05-02] MEDS ORDERED: VANCOMYCIN IV PER PHARMACY XX (22:00)
[2018-05-03] MEDS: BISACODYL 10 MG SUPP PR
[2018-05-03] MEDS: VANCOMYCIN 500 MG (PMX) 100 ML IVPB ×3 (00:33→22:32)
[2018-05-03] MEDS: ACETAMINOPHEN 650MG/20.3ML CUP GTB ×3 (00:37→22:00)
[2018-05-03] MEDS: ALBUTEROL HFA 8 GM INHALER INH ×4 (01:35→19:47)
[2018-05-03] MEDS: IPRATROPIUM (HFA) 12.9 GM INHALER INH ×4 (01:35→19:47)
[2018-05-03] MEDS: SOD CHLORIDE 0.9% 1,000 ML IV ×2 (05:31→09:40)
[2018-05-03 06:19] LABS: ADD MAN DIFF? NO
[2018-05-03 06:27] LABS: BASOPHILS % 0.3 % (0.0-2.0); EOSINOPHILS % 0.3 % (0.0-7.0); HEMATOCRIT 28.9 % (42.0-52.0); HEMOGLOBIN 8.8 g/dl (14.0-18.0); LYMPHOCYTES # 0.7 10^3/ul (0.8-2.9); LYMPHOCYTES % 5.9 % (15.0-51.0); MEAN CORPUSCULAR HEMOGLOBIN 29.4 pg (29.0-33.0); MEAN CORPUSCULAR HGB CONC 30.4 g/dl (32.0-37.0); MEAN CORPUSCULAR VOLUME 96.7 fl (82.0-101.0); MEAN PLATELET VOLUME 12.9 fl (7.4-10.4); MONOCYTE # 0.3 10^3/ul (0.3-0.9); NEUTROPHIL # 10.3 10^3/ul (1.6-7.5); NEUTROPHILS % 89.4 % (39.0-77.0); PLATELET COUNT 117 10^3/UL (140-415); RED BLOOD COUNT 2.99 10^6/ul (4.70-6.10); RED CELL DISTRIBUTION WIDTH 14.6 % (11.5-14.5)
[2018-05-03 06:27] LABS: WHITE BLOOD COUNT 11.5 10^3/ul (4.8-10.8)
[2018-05-03 06:51] LABS: ANION GAP 6 (5-13); BLOOD UREA NITROGEN 35 mg/dl (7-20); CALCIUM 8.3 mg/dl (8.4-10.2); CARBON DIOXIDE 32 mmol/L (21-31); CHLORIDE 116 mmol/L (97-110); Estimated GFR > 60 mL/min (>60); GLUCOSE 168 mg/dl (70-220); POTASSIUM 3.7 mmol/L (3.5-5.1); SODIUM 154 mmol/L (135-144)
[2018-05-03] MEDS: BALSAM PERU/CASTOR OIL 60 GM TUBE TOP (09:00)
[2018-05-03] MEDS: DOCUSATE SODIUM 10 MG/ML (10ML CUP) GTB ×2 (09:00→22:00)
[2018-05-03] MEDS: NYSTATIN SUSP 5 ML CUP PO ×4 (09:39→22:00)
[2018-05-03] MEDS: LANSOPRAZOLE 30 MG CAP GTB (09:39)
[2018-05-03] MEDS: ESCITALOPRAM 10 MG TAB GTB (09:39)
[2018-05-03] MEDS: MULTIVITAMINS 30 ML CUP GTB (09:39)
[2018-05-03] MEDS: FERROUS SULFATE 60 MG/ML 5ML CUP GTB ×2 (09:39→22:00)
[2018-05-03] MEDS: MEROPENEM 1 GM/50ML(PMX) 50 ML IVPB (09:39)
[2018-05-03] MEDS: ENOXAPARIN 30 MG/0.3 ML SYG SC (10:01)
[2018-05-03] MEDS: FLUCONAZOLE 100 MG TAB PO (13:45)
[2018-05-03] MEDS: CEFEPIME 1GM/50 ML (PMX) 50 ML IVPB ×2 (13:45→22:00)
[2018-05-03] MEDS: VORICONAZOLE 200 MG TAB PO (22:00)
[2018-05-04] MEDS: BISACODYL 10 MG SUPP PR
[2018-05-04] MEDS: IPRATROPIUM (HFA) 12.9 GM INHALER INH ×4 (01:30→20:07)
[2018-05-04] MEDS: ALBUTEROL HFA 8 GM INHALER INH ×4 (01:30→20:07)
[2018-05-04] MEDS: SOD CHLORIDE 0.9% 1,000 ML IV ×2 (01:49→16:09)
[2018-05-04] MEDS: IBUPROFEN 400 MG TAB NGT ×2 (01:50→21:25)
[2018-05-04 07:40] LABS: ADD MAN DIFF? NO
[2018-05-04 08:06] LABS: ANION GAP 4 (5-13); BLOOD UREA NITROGEN 27 mg/dl (7-20); CALCIUM 7.9 mg/dl (8.4-10.2); CARBON DIOXIDE 29 mmol/L (21-31); CHLORIDE 117 mmol/L (97-110); CREATININE 0.55 mg/dl (0.61-1.24); Estimated GFR > 60 mL/min (>60); GLUCOSE 126 mg/dl (70-220); POTASSIUM 4.3 mmol/L (3.5-5.1); SODIUM 150 mmol/L (135-144)
[2018-05-04 09:11] LABS: WHITE BLOOD COUNT 6.8 10^3/ul (4.8-10.8)
[2018-05-04 09:11] LABS: BASOPHILS % 0.3 % (0.0-2.0); EOSINOPHILS % 0.6 % (0.0-7.0); HEMATOCRIT 25.3 % (42.0-52.0); HEMOGLOBIN 7.8 g/dl (14.0-18.0); LYMPHOCYTES # 0.7 10^3/ul (0.8-2.9); LYMPHOCYTES % 10.3 % (15.0-51.0); MEAN CORPUSCULAR HEMOGLOBIN 29.3 pg (29.0-33.0); MEAN CORPUSCULAR HGB CONC 30.8 g/dl (32.0-37.0); MEAN CORPUSCULAR VOLUME 95.1 fl (82.0-101.0); MEAN PLATELET VOLUME 12.5 fl (7.4-10.4); MONOCYTE # 0.3 10^3/ul (0.3-0.9); NEUTROPHIL # 5.7 10^3/ul (1.6-7.5); NEUTROPHILS % 82.8 % (39.0-77.0); PLATELET COUNT 116 10^3/UL (140-415); RED BLOOD COUNT 2.66 10^6/ul (4.70-6.10); RED CELL DISTRIBUTION WIDTH 14.3 % (11.5-14.5)
[2018-05-04] MEDS: DOCUSATE SODIUM 10 MG/ML (10ML CUP) GTB ×2 (09:49→21:25)
[2018-05-04] MEDS: MULTIVITAMINS 30 ML CUP GTB (09:49)
[2018-05-04] MEDS: VORICONAZOLE 200 MG TAB PO ×2 (09:49→21:25)
[2018-05-04] MEDS: NYSTATIN SUSP 5 ML CUP PO ×4 (09:49→21:24)
[2018-05-04] MEDS: ESCITALOPRAM 10 MG TAB GTB (09:49)
[2018-05-04] MEDS: CEFEPIME 1GM/50 ML (PMX) 50 ML IVPB ×2 (09:49→21:24)
[2018-05-04] MEDS: FERROUS SULFATE 60 MG/ML 5ML CUP GTB ×2 (09:49→21:24)
[2018-05-04] MEDS: LANSOPRAZOLE 30 MG CAP GTB (09:49)
[2018-05-04] MEDS: BALSAM PERU/CASTOR OIL 60 GM TUBE TOP (09:50)
[2018-05-04] MEDS: ENOXAPARIN 30 MG/0.3 ML SYG SC (10:14)
[2018-05-04] MEDS: VANCOMYCIN 500 MG (PMX) 100 ML IVPB ×2 (10:55→22:55)
[2018-05-04 16:38] LABS: IMMEDIATE SPIN CROSSMATCH 1 1
[2018-05-04] MEDS: ACETAMINOPHEN 650MG/20.3ML CUP GTB (17:13)
[2018-05-04 21:32] LABS: VANCOMYCIN,TROUGH 12.6 ug/ml (10.0-20.0)
[2018-05-05] MEDS: ALBUTEROL HFA 8 GM INHALER INH ×4 (01:21→20:23)
[2018-05-05] MEDS: IPRATROPIUM (HFA) 12.9 GM INHALER INH ×4 (01:21→20:23)
[2018-05-05 06:34] LABS: ADD MAN DIFF? NO
[2018-05-05 06:36] LABS: ABNORMAL IP MESSAGE 1; BASOPHILS % 0.4 % (0.0-2.0); EOSINOPHILS # 0.1 10^3/ul (0.0-0.5); EOSINOPHILS % 0.9 % (0.0-7.0); HEMATOCRIT 28.9 % (42.0-52.0); HEMOGLOBIN 8.9 g/dl (14.0-18.0); LYMPHOCYTES # 0.6 10^3/ul (0.8-2.9); LYMPHOCYTES % 8.7 % (15.0-51.0); MEAN CORPUSCULAR HEMOGLOBIN 28.7 pg (29.0-33.0); MEAN CORPUSCULAR HGB CONC 30.8 g/dl (32.0-37.0); MEAN CORPUSCULAR VOLUME 93.2 fl (82.0-101.0); MEAN PLATELET VOLUME 12.4 fl (7.4-10.4); MONOCYTE # 0.4 10^3/ul (0.3-0.9); MONOCYTES % 5.4 % (0.0-11.0); NEUTROPHIL # 5.6 10^3/ul (1.6-7.5); PLATELET COUNT 113 10^3/UL (140-415); POSITIVE DIFF @See below; RED CELL DISTRIBUTION WIDTH 14.5 % (11.5-14.5)
[2018-05-05 06:36] LABS: WHITE BLOOD COUNT 6.7 10^3/ul (4.8-10.8)
[2018-05-05 07:06] LABS: ANION GAP 5 (5-13); BLOOD UREA NITROGEN 23 mg/dl (7-20); CALCIUM 8.2 mg/dl (8.4-10.2); CARBON DIOXIDE 30 mmol/L (21-31); CHLORIDE 116 mmol/L (97-110); CREATININE 0.54 mg/dl (0.61-1.24); Estimated GFR > 60 mL/min (>60); GLUCOSE 129 mg/dl (70-220); POTASSIUM 3.9 mmol/L (3.5-5.1); SODIUM 151 mmol/L (135-144)
[2018-05-05 09:15] LABS: ANISOCYTOSIS 1+ (0-0); BAND NEUTROPHILS #M 0.4 10^3/ul (0.0-0.6); BAND NEUTROPHILS % (M) 6 % (0-4); GIANT THROMBO% (M) 11 % (0-0); LYMPHOCYTES #M 0.2 10^3/ul (0.8-2.9); LYMPHOCYTES % (M) 4 % (15-51); MONOCYTE #M 0.4 10^3/ul (0.3-0.9); MONOCYTES % (M) 6 % (0-11); PLATELET ESTIMATE DECREASED; POIKILOCYTOSIS 1+ (0-0); PROMYELOCYTES % (M) 1 % (0-0); REACTIVE LYMPHOCYTES #M 0.1 10^3/ul (0.0-0.0); REACTIVE LYMPHOCYTES% (M) 2 % (0-0); SEG NEUT #M 5.5 10^3/ul (1.6-7.5); SEGMENTED NEUTROPHILS (M) % 81 % (39-77); SMUDGE%M 5 % (0-0); TOXIC GRANULATION 1+ (0-0)
[2018-05-05] MEDS: CEFEPIME 1GM/50 ML (PMX) 50 ML IVPB ×2 (09:54→20:42)
[2018-05-05] MEDS: NYSTATIN SUSP 5 ML CUP PO ×4 (09:54→20:42)
[2018-05-05] MEDS: LANSOPRAZOLE 30 MG CAP GTB (09:55)
[2018-05-05] MEDS: ESCITALOPRAM 10 MG TAB GTB (09:55)
[2018-05-05] MEDS: DOCUSATE SODIUM 10 MG/ML (10ML CUP) GTB ×2 (09:55→20:41)
[2018-05-05] MEDS: FERROUS SULFATE 60 MG/ML 5ML CUP GTB ×2 (09:55→20:42)
[2018-05-05] MEDS: VORICONAZOLE 200 MG TAB PO ×2 (09:55→20:42)
[2018-05-05] MEDS: MULTIVITAMINS 30 ML CUP GTB (09:55)
[2018-05-05] MEDS: ENOXAPARIN 30 MG/0.3 ML SYG SC (10:13)
[2018-05-05] MEDS: BALSAM PERU/CASTOR OIL 60 GM TUBE TOP (11:03)
[2018-05-05] MEDS: morphine LIQ (10 MG/5 ML) CUP GTB (11:03)
[2018-05-05] MEDS: SOD CHLORIDE 0.9% 1,000 ML IV ×3 (11:12→23:46)
[2018-05-05] MEDS: VANCOMYCIN 500 MG (PMX) 100 ML IVPB ×2 (11:12→23:45)
[2018-05-05] MEDS: ACETAMINOPHEN 650MG/20.3ML CUP GTB (20:42)
[2018-05-05] MEDS: BISACODYL 10 MG SUPP PR ×2 (23:58)
[2018-05-06] MEDS: IPRATROPIUM (HFA) 12.9 GM INHALER INH ×4 (01:52→19:22)
[2018-05-06] MEDS: ALBUTEROL HFA 8 GM INHALER INH ×4 (01:52→19:22)
[2018-05-06 06:24] LABS: ADD MAN DIFF? NO
[2018-05-06 06:31] LABS: WHITE BLOOD COUNT 6.3 10^3/ul (4.8-10.8)
[2018-05-06 06:31] LABS: BASOPHILS % 0.5 % (0.0-2.0); EOSINOPHILS # 0.1 10^3/ul (0.0-0.5); EOSINOPHILS % 1.1 % (0.0-7.0); HEMATOCRIT 27.4 % (42.0-52.0); HEMOGLOBIN 8.4 g/dl (14.0-18.0); LYMPHOCYTES # 0.6 10^3/ul (0.8-2.9); LYMPHOCYTES % 9.8 % (15.0-51.0); MEAN CORPUSCULAR HGB CONC 30.7 g/dl (32.0-37.0); MEAN CORPUSCULAR VOLUME 94.5 fl (82.0-101.0); MEAN PLATELET VOLUME 12.5 fl (7.4-10.4); MONOCYTE # 0.3 10^3/ul (0.3-0.9); MONOCYTES % 4.7 % (0.0-11.0); NEUTROPHIL # 5.3 10^3/ul (1.6-7.5); NEUTROPHILS % 83.1 % (39.0-77.0); PLATELET COUNT 128 10^3/UL (140-415); RED CELL DISTRIBUTION WIDTH 14.5 % (11.5-14.5)
[2018-05-06 07:13] LABS: ANION GAP 5 (5-13); BLOOD UREA NITROGEN 23 mg/dl (7-20); CALCIUM 7.9 mg/dl (8.4-10.2); CARBON DIOXIDE 30 mmol/L (21-31); CHLORIDE 115 mmol/L (97-110); CREATININE 0.55 mg/dl (0.61-1.24); Estimated GFR > 60 mL/min (>60); GLUCOSE 146 mg/dl (70-220); POTASSIUM 3.9 mmol/L (3.5-5.1); SODIUM 150 mmol/L (135-144)
[2018-05-06] MEDS: ESCITALOPRAM 10 MG TAB GTB (09:24)
[2018-05-06] MEDS: DOCUSATE SODIUM 10 MG/ML (10ML CUP) GTB ×2 (09:24→20:06)
[2018-05-06] MEDS: VORICONAZOLE 200 MG TAB PO ×2 (09:24→20:06)
[2018-05-06] MEDS: MULTIVITAMINS 30 ML CUP GTB (09:24)
[2018-05-06] MEDS: LANSOPRAZOLE 30 MG CAP GTB (09:24)
[2018-05-06] MEDS: NYSTATIN SUSP 5 ML CUP PO ×4 (09:25→20:06)
[2018-05-06] MEDS: CEFEPIME 1GM/50 ML (PMX) 50 ML IVPB ×2 (09:25→20:06)
[2018-05-06] MEDS: FERROUS SULFATE 60 MG/ML 5ML CUP GTB ×2 (09:25→20:06)
[2018-05-06] MEDS: BALSAM PERU/CASTOR OIL 60 GM TUBE TOP (09:26)
[2018-05-06] MEDS: ENOXAPARIN 30 MG/0.3 ML SYG SC (09:42)
[2018-05-06] MEDS: VANCOMYCIN 500 MG (PMX) 100 ML IVPB ×2 (11:17→22:21)
[2018-05-06] MEDS: SOD CHLORIDE 0.9% 1,000 ML IV ×2 (11:18→19:30)
[2018-05-06] MEDS: ACETAMINOPHEN 650MG/20.3ML CUP GTB ×2 (20:06→23:59)
[2018-05-06] MEDS: BISACODYL 10 MG SUPP PR (23:20)
[2018-05-07] MEDS: ALBUTEROL HFA 8 GM INHALER INH ×4 (01:28→20:14)
[2018-05-07] MEDS: IPRATROPIUM (HFA) 12.9 GM INHALER INH ×4 (01:28→20:14)
[2018-05-07] MEDS: ACETAMINOPHEN 650MG/20.3ML CUP GTB ×2 (04:27→20:55)
[2018-05-07] MEDS: SOD CHLORIDE 0.9% 1,000 ML IV ×3 (05:16→15:30)
[2018-05-07 06:44] LABS: ADD MAN DIFF? NO
[2018-05-07 06:50] LABS: BASOPHILS % 0.2 % (0.0-2.0); EOSINOPHILS # 0.1 10^3/ul (0.0-0.5); EOSINOPHILS % 1.2 % (0.0-7.0); HEMATOCRIT 25.7 % (42.0-52.0); HEMOGLOBIN 7.9 g/dl (14.0-18.0); LYMPHOCYTES # 0.7 10^3/ul (0.8-2.9); LYMPHOCYTES % 13.7 % (15.0-51.0); MEAN CORPUSCULAR HGB CONC 30.7 g/dl (32.0-37.0); MEAN CORPUSCULAR VOLUME 94.5 fl (82.0-101.0); MEAN PLATELET VOLUME 11.8 fl (7.4-10.4); MONOCYTE # 0.3 10^3/ul (0.3-0.9); MONOCYTES % 5.8 % (0.0-11.0); NEUTROPHILS % 78.7 % (39.0-77.0); PLATELET COUNT 136 10^3/UL (140-415); RED BLOOD COUNT 2.72 10^6/ul (4.70-6.10)
[2018-05-07 07:11] LABS: ANION GAP 2 (5-13); BLOOD UREA NITROGEN 17 mg/dl (7-20); CALCIUM 7.8 mg/dl (8.4-10.2); CARBON DIOXIDE 30 mmol/L (21-31); CHLORIDE 112 mmol/L (97-110); CREATININE 0.49 mg/dl (0.61-1.24); Estimated GFR > 60 mL/min (>60); GLUCOSE 123 mg/dl (70-220); POTASSIUM 3.7 mmol/L (3.5-5.1); SODIUM 144 mmol/L (135-144)
[2018-05-07] MEDS: CEFEPIME 1GM/50 ML (PMX) 50 ML IVPB ×2 (08:32→20:54)
[2018-05-07] MEDS: NYSTATIN SUSP 5 ML CUP PO ×4 (08:33→20:54)
[2018-05-07] MEDS: DOCUSATE SODIUM 10 MG/ML (10ML CUP) GTB ×2 (08:33→20:54)
[2018-05-07] MEDS: VORICONAZOLE 200 MG TAB PO ×2 (08:33→20:54)
[2018-05-07] MEDS: BALSAM PERU/CASTOR OIL 60 GM TUBE TOP (08:33)
[2018-05-07] MEDS: LANSOPRAZOLE 30 MG CAP GTB (08:33)
[2018-05-07] MEDS: FERROUS SULFATE 60 MG/ML 5ML CUP GTB ×2 (08:33→20:54)
[2018-05-07] MEDS: MULTIVITAMINS 30 ML CUP GTB (08:33)
[2018-05-07] MEDS: ESCITALOPRAM 10 MG TAB GTB (08:33)
[2018-05-07] MEDS: ENOXAPARIN 30 MG/0.3 ML SYG SC (09:18)
[2018-05-07] MEDS: VANCOMYCIN 500 MG (PMX) 100 ML IVPB ×2 (09:43→12:28)
[2018-05-07 10:56] LABS: VANCOMYCIN,TROUGH 11.5 ug/ml (10.0-20.0)
[2018-05-07 11:20] LABS: PRETRANSFUSION BILIRUBIN 0.3 mg/dl
[2018-05-07] MEDS: EPOETIN 10000 UNITS/1 ML INJ (ESRD) SC (18:18)
[2018-05-07] MEDS: VANCOMYCIN 750 MG (PMX) 250 ML IVPB (21:35)
[2018-05-08] MEDS: BISACODYL 10 MG SUPP PR
[2018-05-08] MEDS: SOD CHLORIDE 0.9% 1,000 ML IV ×3 (01:04→21:27)
[2018-05-08] MEDS: ALBUTEROL HFA 8 GM INHALER INH ×4 (01:20→19:23)
[2018-05-08] MEDS: IPRATROPIUM (HFA) 12.9 GM INHALER INH ×4 (01:20→19:23)
[2018-05-08 06:02] LABS: ADD MAN DIFF? NO
[2018-05-08 06:14] LABS: BASOPHILS % 0.4 % (0.0-2.0); EOSINOPHILS # 0.1 10^3/ul (0.0-0.5); EOSINOPHILS % 1.6 % (0.0-7.0); HEMATOCRIT 26.1 % (42.0-52.0); HEMOGLOBIN 7.8 g/dl (14.0-18.0); LYMPHOCYTES % 21.1 % (15.0-51.0); MEAN CORPUSCULAR HEMOGLOBIN 28.4 pg (29.0-33.0); MEAN CORPUSCULAR HGB CONC 29.9 g/dl (32.0-37.0); MEAN CORPUSCULAR VOLUME 94.9 fl (82.0-101.0); MEAN PLATELET VOLUME 11.2 fl (7.4-10.4); MONOCYTE # 0.3 10^3/ul (0.3-0.9); MONOCYTES % 7.1 % (0.0-11.0); NEUTROPHIL # 3.1 10^3/ul (1.6-7.5); NEUTROPHILS % 69.4 % (39.0-77.0); PLATELET COUNT 157 10^3/UL (140-415); RED BLOOD COUNT 2.75 10^6/ul (4.70-6.10); RED CELL DISTRIBUTION WIDTH 13.9 % (11.5-14.5)
[2018-05-08 06:14] LABS: WHITE BLOOD COUNT 4.5 10^3/ul (4.8-10.8)
[2018-05-08 06:45] LABS: ANION GAP 3 (5-13); BLOOD UREA NITROGEN 15 mg/dl (7-20); CARBON DIOXIDE 32 mmol/L (21-31); CHLORIDE 111 mmol/L (97-110); CREATININE 0.44 mg/dl (0.61-1.24); Estimated GFR > 60 mL/min (>60); GLUCOSE 122 mg/dl (70-220); POTASSIUM 3.8 mmol/L (3.5-5.1); SODIUM 146 mmol/L (135-144)
[2018-05-08] MEDS: LANSOPRAZOLE 30 MG CAP GTB (09:29)
[2018-05-08] MEDS: MULTIVITAMINS 30 ML CUP GTB (09:30)
[2018-05-08] MEDS: BALSAM PERU/CASTOR OIL 60 GM TUBE TOP (09:30)
[2018-05-08] MEDS: NYSTATIN SUSP 5 ML CUP PO ×4 (09:30→21:26)
[2018-05-08] MEDS: VORICONAZOLE 200 MG TAB PO ×2 (09:30→21:26)
[2018-05-08] MEDS: DOCUSATE SODIUM 10 MG/ML (10ML CUP) GTB ×2 (09:30→21:26)
[2018-05-08] MEDS: ESCITALOPRAM 10 MG TAB GTB (09:30)
[2018-05-08] MEDS: FERROUS SULFATE 60 MG/ML 5ML CUP GTB ×2 (09:30→21:26)
[2018-05-08] MEDS: ENOXAPARIN 30 MG/0.3 ML SYG SC (09:44)
[2018-05-08] MEDS: CEFEPIME 1GM/50 ML (PMX) 50 ML IVPB ×2 (10:58→21:25)
[2018-05-08] MEDS: VANCOMYCIN 750 MG (PMX) 250 ML IVPB ×2 (12:42→22:05)
[2018-05-08] MEDS: ACETAMINOPHEN 650MG/20.3ML CUP GTB (21:26)
[2018-05-09] MEDS: BISACODYL 10 MG SUPP PR
[2018-05-09] MEDS: IPRATROPIUM (HFA) 12.9 GM INHALER INH ×4 (01:37→19:28)
[2018-05-09] MEDS: ALBUTEROL HFA 8 GM INHALER INH ×4 (01:37→19:28)
[2018-05-09 07:46] LABS: ADD MAN DIFF? NO
[2018-05-09 08:15] LABS: ANION GAP 6 (5-13); BLOOD UREA NITROGEN 15 mg/dl (7-20); CARBON DIOXIDE 34 mmol/L (21-31); CHLORIDE 104 mmol/L (97-110); CREATININE 0.49 mg/dl (0.61-1.24); Estimated GFR > 60 mL/min (>60); GLUCOSE 111 mg/dl (70-220); POTASSIUM 4.1 mmol/L (3.5-5.1); SODIUM 144 mmol/L (135-144)
[2018-05-09 08:20] LABS: BASOPHILS % 0.4 % (0.0-2.0); EOSINOPHILS # 0.1 10^3/ul (0.0-0.5); EOSINOPHILS % 1.4 % (0.0-7.0); HEMOGLOBIN 7.5 g/dl (14.0-18.0); LYMPHOCYTES # 0.9 10^3/ul (0.8-2.9); LYMPHOCYTES % 15.4 % (15.0-51.0); MEAN CORPUSCULAR HEMOGLOBIN 28.8 pg (29.0-33.0); MEAN CORPUSCULAR VOLUME 96.2 fl (82.0-101.0); MEAN PLATELET VOLUME 11.3 fl (7.4-10.4); MONOCYTE # 0.3 10^3/ul (0.3-0.9); MONOCYTES % 6.1 % (0.0-11.0); NEUTROPHIL # 4.3 10^3/ul (1.6-7.5); NEUTROPHILS % 76.2 % (39.0-77.0); NUCLEATED RED BLOOD CELLS% 0.4 /100WBC (0.0-0.0); PLATELET COUNT 177 10^3/UL (140-415); RED CELL DISTRIBUTION WIDTH 13.9 % (11.5-14.5)
[2018-05-09 08:20] LABS: WHITE BLOOD COUNT 5.6 10^3/ul (4.8-10.8)
[2018-05-09] MEDS: SOD CHLORIDE 0.9% 1,000 ML IV ×3 (09:07→22:35)
[2018-05-09] MEDS: CEFEPIME 1GM/50 ML (PMX) 50 ML IVPB ×2 (09:07→22:33)
[2018-05-09] MEDS: VANCOMYCIN 750 MG (PMX) 250 ML IVPB ×2 (09:10→22:34)
[2018-05-09] MEDS: MULTIVITAMINS 30 ML CUP GTB (09:11)
[2018-05-09] MEDS: DOCUSATE SODIUM 10 MG/ML (10ML CUP) GTB ×2 (09:11→22:33)
[2018-05-09] MEDS: FERROUS SULFATE 60 MG/ML 5ML CUP GTB ×2 (09:11→22:33)
[2018-05-09] MEDS: NYSTATIN SUSP 5 ML CUP PO ×4 (09:11→22:32)
[2018-05-09] MEDS: VORICONAZOLE 200 MG TAB PO ×2 (09:11→22:34)
[2018-05-09] MEDS: ESCITALOPRAM 10 MG TAB GTB (09:11)
[2018-05-09] MEDS: LANSOPRAZOLE 30 MG CAP GTB (09:12)
[2018-05-09] MEDS: BALSAM PERU/CASTOR OIL 60 GM TUBE TOP (09:12)
[2018-05-09] MEDS: ENOXAPARIN 30 MG/0.3 ML SYG SC (09:40)
[2018-05-10] MEDS: IPRATROPIUM (HFA) 12.9 GM INHALER INH ×3 (01:18→14:00)
[2018-05-10] MEDS: ALBUTEROL HFA 8 GM INHALER INH ×3 (01:18→14:00)
[2018-05-10] MEDS: CEFEPIME 1GM/50 ML (PMX) 50 ML IVPB (08:56)
[2018-05-10] MEDS: NYSTATIN SUSP 5 ML CUP PO ×3 (08:59→16:51)
[2018-05-10] MEDS: FERROUS SULFATE 60 MG/ML 5ML CUP GTB (08:59)
[2018-05-10] MEDS: DOCUSATE SODIUM 10 MG/ML (10ML CUP) GTB (09:00)
[2018-05-10] MEDS: LANSOPRAZOLE 30 MG CAP GTB (09:00)
[2018-05-10] MEDS: MULTIVITAMINS 30 ML CUP GTB (09:00)
[2018-05-10] MEDS: BALSAM PERU/CASTOR OIL 60 GM TUBE TOP (09:00)
[2018-05-10] MEDS: VORICONAZOLE 200 MG TAB PO (09:00)
[2018-05-10] MEDS: ENOXAPARIN 30 MG/0.3 ML SYG SC (09:06)
[2018-05-10 09:08] LABS: ADD MAN DIFF? NO
[2018-05-10 09:15] LABS: BASOPHILS % 0.4 % (0.0-2.0); EOSINOPHILS # 0.1 10^3/ul (0.0-0.5); EOSINOPHILS % 1.5 % (0.0-7.0); HEMATOCRIT 25.5 % (42.0-52.0); HEMOGLOBIN 7.9 g/dl (14.0-18.0); MEAN CORPUSCULAR HEMOGLOBIN 29.3 pg (29.0-33.0); MEAN CORPUSCULAR VOLUME 94.4 fl (82.0-101.0); MEAN PLATELET VOLUME 10.7 fl (7.4-10.4); MONOCYTE # 0.3 10^3/ul (0.3-0.9); MONOCYTES % 5.6 % (0.0-11.0); NEUTROPHIL # 3.9 10^3/ul (1.6-7.5); NEUTROPHILS % 73.9 % (39.0-77.0); PLATELET COUNT 196 10^3/UL (140-415); RED CELL DISTRIBUTION WIDTH 14.1 % (11.5-14.5)
[2018-05-10 09:15] LABS: WHITE BLOOD COUNT 5.3 10^3/ul (4.8-10.8)
[2018-05-10 09:32] LABS: ANION GAP 1 (5-13); BLOOD UREA NITROGEN 13 mg/dl (7-20); CALCIUM 8.1 mg/dl (8.4-10.2); CARBON DIOXIDE 33 mmol/L (21-31); CHLORIDE 106 mmol/L (97-110); CREATININE 0.52 mg/dl (0.61-1.24); Estimated GFR > 60 mL/min (>60); GLUCOSE 118 mg/dl (70-220); POTASSIUM 3.8 mmol/L (3.5-5.1); SODIUM 140 mmol/L (135-144)
[2018-05-10 09:36] LABS: VANCOMYCIN,TROUGH 17.5 ug/ml (10.0-20.0)
[2018-05-10] MEDS: VANCOMYCIN 750 MG (PMX) 250 ML IVPB (10:14)
[2018-05-10] MEDS: SOD CHLORIDE 0.9% 1,000 ML IV (12:56)
[2018-05-10] MEDS ORDERED: VANCOMYCIN 500 MG (PMX) 100 ML IVPB (21:00)
== END 2018-05-10 20:16 | DRG 870 ==
LOC: ICU 21:21 → E/R 20:32 → TEL 04-08 20:14
PROC: 5A1955Z Respiratory Ventilation, Greater than 96 Consecutive Hours (ICD-10-PCS; principal; 2018-04-07)
PROC: 0T2BX0Z Change Drainage Device in Bladder, External Approach (ICD-10-PCS; 2018-05-02)
DX: A41.9 Sepsis, unspecified organism (principal); G82.50 Quadriplegia, unspecified; G93.41 Metabolic encephalopathy; J18.9 Pneumonia, unspecified organism; J96.10 Chronic respiratory failure, unspecified whether with hypoxia or hypercapnia; N17.9 Acute kidney failure, unspecified; E44.0 Moderate protein-calorie malnutrition; N13.6 Pyonephrosis; Z99.11 Dependence on respirator [ventilator] status; L89.151 Pressure ulcer of sacral region, stage 1; I25.10 Atherosclerotic heart disease of native coronary artery without angina pectoris; I25.2 Old myocardial infarction; I10 Essential (primary) hypertension; R13.10 Dysphagia, unspecified; H17.9 Unspecified corneal scar and opacity; H54.61 Unqualified visual loss, right eye, normal vision left eye; R65.20 Severe sepsis without septic shock; T83.021A Displacement of indwelling urethral catheter, initial encounter; Y84.6 Urinary catheterization as the cause of abnormal reaction of the patient, or of later complication, without mention of misadventure at the time of the procedure; Y92.238 Other place in hospital as the place of occurrence of the external cause; M24.50 Contracture, unspecified joint; Z66 Do not resuscitate; Z68.20 Body mass index [BMI] 20.0-20.9, adult; Z93.1 Gastrostomy status; Z93.0 Tracheostomy status
CPT/HCPCS: 36415; 36430; 36600; 71045; 74018; 74176; 74178; 78806; 80048; 80053; 80200; 80202; 81001; 82565; 82803; 83605; 83690; 84145; 84153; 84154; 84484; 84520; 85025; 85610; 85651; 85730; 86038; 86078; 86140; 86430; 86644; 86850; 86900; 86901; 86920; 87040; 87070; 87075; 87081; 87086; 89220; 93005; 94002; 94003; 94640; 96374; 99285-25